=== PATIENT | male | born 1970 | race Caucasian/White ===

== ENCOUNTER 2020-03-15 12:36 | Outpatient (CLI) | payer OTHER, SELFPAY ==
[2020-03-15 14:19] LABS: Basophils % 0.8 %; Eosinophils # 0.1 10^3/uL (0.0-0.8); Eosinophils % 2.8 %; Hematocrit 51.5 % (42.0-52.0); Hemoglobin 17.4 g/dL (11.7-16.6); Lymphocytes # 2.2 10^3/uL (0.8-4.8); Lymphocytes % 44.7 %; Mean Corpuscular HGB Conc 33.8 g/dL (30.0-36.0); Mean Corpuscular Hemoglobin 31.2 pg (28.0-34.0); Mean Corpuscular Volume 92.5 fL (80-94); Monocytes # 0.3 10^3/uL (0.2-0.9); Monocytes % 5.8 %; Neutrophils # 2.29 10^3/uL (1.8-7.7); Neutrophils % 45.7 %; Nucleated Red Blood Cells % 0 %; Platelet Count 178 10^3/cmm (130-400); Red Blood Count 5.57 10^6/uL (4.1-5.3); Red Cell Distribution Width 11.9 % (12.1-15.1)
[2020-03-15 14:43] LABS: Alanine Aminotransferase 67 U/L (0-41); Albumin Level 4.4 g/dL (3.5-5.2); Alkaline Phosphatase 74 IU/L (40-130); Anion Gap 12.1 (5-19); Aspartate Amino Transferase 43 U/L (0-40); Blood Urea Nitrogen 16 mg/dL (6-20); C Reactive Protein 3.2 mg/L (0.0-4.9); Calcium 9.3 mg/dL (8.5-10.5); Carbon Dioxide 27 mmol/L (22-29); Chloride 103 mmol/L (98-107); Ferritin 512 ng/mL (30-400); Globulin 2.8 g/dL (1.3-4.6); Glomerular Filtration Rate 103.6 mL/min (90-130); Glucose 91 mg/dL (65-115); Iron 136 ug/dL (59-158); Osmolality Calculated 287 mOsm/kg (285-295); Percent Saturation 59.1 % (20-50); Potassium 4.1 mmol/L (3.5-5.1); Sodium 138 mmol/L (136-145); Thyroid Stimulating Hormone 1.66 uIU/mL (0.27-4.20); Total Bilirubin 0.8 mg/dL (0.15-1.2); Total Iron Binding Capacity 230 mcg/dl; Total Protein 7.2 g/dL (6.6-8.7); Unsaturated Iron Binding 94 ug/dL (112-347); Vitamin B12 494 pg/mL (232-1245)
[2020-03-16 01:25] LABS: Erythrocyte Sedimentation Rate 0 mm/hr (0-10)
--- NOTE | 2020-03-18 10:59 | ONC FU_ITS ---
Dr. May Patient Follow-Up Note Patient: Issac Blanc Unit #: [id number]: 1970 Dicatated By: Bayron May M.D.Date of Visit:Mar 15, 2020 Onc Med Follow-up/Prog Note Chief Complaint: Elevated serum ferritin/hemochromatosis. History of Present Illness: This is a 48 year-old man with elevated serum ferritin level and presumed hereditary hemochromatosis. I had seen him initially in January of 2010. Prior to that visit, he had been in the emergency room and his ferritin was found to be elevated at 621 ng/mL. Serum iron studies had shown his transferrin saturation normal at 34%. A repeat ferritin was still significantly elevated at 537 ng/mL. His subsequent serum iron studies had shown transferrin saturations more in the low to mid 20 percentile range. 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 That particular pattern, however, has not been reported to be associated with iron overload. He did have mildly elevated liver enzymes. A liver biopsy showed grade 3-4 steatosis, but just mild iron deposition (grade 1/4). A viral hepatitis profile was negative. He had complained of severe fatigue and he also had significant musculoskeletal pain. I had not been able to determine any specific cause for those symptoms. I had initially opted to just follow him on observation/symptomatic management. During subsequent follow-up, he continued to complain of severe fatigue and generalized musculoskeletal pain. His serum ferritin levels had initially remained similarly elevated. However, as of August 2016 it had increased to 1133 ng/mL. His SGPT had become slightly elevated. With those findings, I opted to have him start a phlebotomy program. His repeat laboratory studies on 07/16/2017 showed elevated hemoglobin at 17.6 g with hematocrit 54.9%. His chem profile was unremarkable. The liver enzymes were normal. His further lab studies in 07/22/2017 included serum ferritin, which had dropped to 73 ng/mL. His serum iron was 136 mcg/dL with transferrin saturation 46%. Given the discrepancy in those results compared to his previous studies, he had further laboratory evaluation on 08/12/2017. It included a CBC which showed further increase in the hemoglobin to 18.9 g with hematocrit 57.2%. The white blood cell count was normal at 5000 and the platelet count was normal at 239,000. His serum iron was again elevated at 205 mcg/dL with transferrin saturation 62%. The ferritin was stable at 73 ng/mL. B12 level was normal 393 pg/mL. The erythropoietin level was 8 mIU/mL. The JAK2 gene mutation was not detected. I had seen him for a follow-up visit again in December 2017. At that point there had not been a significant change in his symptoms. He continued to have episodes of severe fatigue, and he complained that he hurt so bad at times that he couldn't stand it. However, he was working full-time and maintaining normal activity. At that point I had stopped the phlebotomies, as his laboratory studies had shown low transferrin saturation at 14.2% and ferritin low at 17 ng/mL. Subsequent to that visit he had established primary care with Dr. Mike Woo in [place]. I don't have records, but he was referred for GI evaluation with EGD and colonoscopy, both of which were apparently negative. He was also recommended to be seen a pain clinic for management of his chronic pain. His repeat laboratory studies in October 2018 continued to show elevated hemoglobin at 18.8 g with hematocrit 54%. The white blood cell count was 4500 and the platelet count was 210,000. The SGPT was slightly elevated at 64. The other liver enzymes were normal. The serum iron studies showed elevated transferrin saturation of 58%. The ferritin was 161 ng/mL. Given those findings, I opted to just continue with symptomatic management. He is seen now for a follow-up visit. He has not been feeling good. He reports decreased energy. He is working, but he says he is worn out by 2 PM. 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 His ECOG score is 1. He has good appetite. He has gained weight. He does not have fever or night sweats. He continues to have pain in his right upper quadrant area. The pain gets worse if he is leaning over to the right side. He says it feels like there is something popping out. The pain also tends to get worse after eating. He does not have nausea. He does have some acid reflux, but it is adequately managed with Tums. Bowel function has been okay. He also complains that he aches and hurts all the time, particularly in his arms. He also has lower back pain that radiates down into his legs. He says when he wakes up in the morning he can hardly move. He has some shortness of breath, and he has chest pain off and on. He does not complain of headache. He occasionally has dizziness. He has no numbness/paresthesia or other focal neurologic symptoms. He complains that he has terrible anxiety he does not sleep well. Medications: Hydrocodone-Acetaminophen 1 (10-325 mg) Tablet Oral q 4 hours PRN Allergies: No Known Allergies. Review of Systems: Constitutional - He generally does not feel good. His energy has decreased over the last few months. 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 His appetite is very good and his weight is up about 8 pounds. No fevers, night sweats, or hot flashes. ECOG score is 1, ENMT - He has seasonal allergies. No mouth sores. No sore throat or difficulty swallowing, Hematologic/Lymphatic - No abnormal bruising or bleeding, Respiratory - No shortness of breath. No cough. No pleuritic pain or hemoptysis, Cardiovascular - He continues to have intermittent chest pain. No palpitations, Gastrointestinal - No nausea or vomiting. No heartburn or acid reflux. No diarrhea or constipation. No blood in the stool or black stools. He continues to have intermittent right abdominal/flank pain. He notices that it worsens with eating or with certain positions, Genitourinary (M) - No dysuria or hematuria. No urinary frequency. No urgency or incontinence, Musculoskeletal - He has generalized aches that have worsened. He also has back pain, mainly sciatica. His pain is adequately controlled with hydrocodone-APAP 10-325 mg, Integumentary - No skin complications, Neurologic - No headache. He get dizzy with quick position changes. He has a tingling sensation in his hands. No other focal neurologic symptoms, Psychiatric - He is having frequent anxiety. No depression. He doesn't sleep well. Vital Signs: Performed on Mar 15, 2020 12:54 Height - 68.00 in Weight - 208.4 lbs (HIGH) BSA - 2.08 sq.m BMI - 31.69 (HIGH) Temperature - 98.4 F Pulse - 73 /min Respiration - 24 /min BP - 136/76 mm(hg) O2 Sat - 98 % Pain - 6 Physical Examination: Constitutional - He looks pretty good generally, Eyes - Sclerae nonicteric. Conjunctivae clear, ENMT - No lesions noted in the oral cavity, Hematologic/Lymphatic - No cervical, clavicular or axillary adenopathy, Respiratory - Lungs are clear with good air movement bilaterally, Cardiovascular - Heart rhythm is regular. There is no murmur, gallop, or rub noted, Abdomen - Soft. Liver is not enlarged or tender. Spleen is not palpable. There is no abdominal mass or ascites noted. There is no inguinal adenopathy, Back/Spine - There is no bony tenderness noted in the spine or ribs, Extremities - No edema, Integumentary - No skin eruption, Neurologic - No focal neurologic deficits noted. Impression: 1. Patient has a moderately elevated serum ferritin. The cause/clinical significance is uncertain. He had extensive evaluation, including liver biopsy, and there was no other evidence to suggest iron overload. His HFE gene analysis showed double heterozygosity for the S65C and the H63D mutations, but that pattern has not been reported to be associated with hemochromatosis. 2. He had complained of severe chronic fatigue and generalized musculoskeletal pain. I was never able to determine his specific cause for it. 3. During follow-up, his ferritin levels had previously remained stable. His current level, though, has increased significantly, now in excess of 1100 ng/mL, but with normal sedimentation rate at 4 mm/hour. I had initially opted to follow him on observation. Though his HFE gene analysis was abnormal, his specific pattern was not one that reported to be associated with iron overload. Furthermore, his liver biopsy showed only 1+ iron deposition. As of August 2016 his ferritin level had increased to over 1000 ng/mL with his sedimentation rate remaining low. At that point I did opt to have him start phlebotomies, as the findings did appear to be suspicious for iron overload. His follow-up laboratory studies in July 2016 showed a significant decrease in the ferritin level to 73 ng/mL. However, at that point his serum iron studies showed elevated transferrin saturation, which previously had been normal. His hemoglobin/hematocrit levels had become mildly elevated. His repeat laboratory studies on 08/12/2017 showed similar findings with regard to the ferritin and transferrin saturation. There was further increase in the hemoglobin/hematocrit levels. Additional studies at that time included an erythropoietin level of 8 mIU/mL and a negative JAK2 gene mutation study. At that point he restarted phlebotomies, but those were subsequently stopped, as his laboratory studies from December 2017 showed low transferrin saturation at 14.2% and ferritin low at 17 ng/mL. During followup he continued to have unexplained fatigue and chronic pain. He developed mildly elevated hemoglobin/hematocrit levels. His serum iron studies and ferritin levels had shown inconsistent results, but with phlebotomies both had become low, and overall there was no observable improvement in his symptoms. He presents with multiple complaints, similar to what he is previously reported, though now somewhat worse. It is uncertain to what extent any of this may be due to iron overload. Plan: I will recheck laboratory studies including CBC, comprehensive metabolic profile, sed rate, serum iron studies, ferritin, TSH, and B12 level. If there has been a significant increase in the transferrin saturation and ferritin, he can be offered the option of restarting phlebotomies, though I am not particularly optimistic of his having any clinical benefit with it. In the meantime, I will have him start citalopram at 20 mg daily. I will tentatively plan a follow-up visit in 1 month. Signed By: Bayron May M.D. <<Signature on File>>
== END 2020-03-15 12:37 | disposition home or self-care (01) ==
PROVIDERS: Visit Provider Internal Medicine Medical Oncology
DX: E83.110 Hereditary hemochromatosis (principal); R79.0 Abnormal level of blood mineral; M25.50 Pain in unspecified joint; R53.83 Other fatigue
CPT/HCPCS: 80053; 82607; 82728; 83540; 83550; 84443; 85025; 85651; 86140; 99214

== ENCOUNTER 2020-04-19 08:58 | Outpatient (CLI) | payer OTHER, SELFPAY ==
--- NOTE | 2020-04-19 10:25 | ONC FU_ITS ---
Dr. May Patient Follow-Up Note Patient: Henry Blanc Unit #: [id number]: 1970 Dicatated By: Bayron May M.D.Date of Visit:Apr 19, 2020 Onc Med Follow-up/Prog Note Chief Complaint: Elevated serum ferritin/hemochromatosis. History of Present Illness: This is a 48 year-old man with elevated serum ferritin level and presumed hereditary hemochromatosis. I had seen him initially in January of 2010. Prior to that visit, he had been in the emergency room and his ferritin was found to be elevated at 621 ng/mL. Serum iron studies had shown his transferrin saturation normal at 34%. A repeat ferritin was still significantly elevated at 537 ng/mL. His subsequent serum iron studies had shown transferrin saturations more in the low to mid 20 percentile range. 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 That particular pattern, however, has not been reported to be associated with iron overload. He did have mildly elevated liver enzymes. A liver biopsy showed grade 3-4 steatosis, but just mild iron deposition (grade 1/4). A viral hepatitis profile was negative. He had complained of severe fatigue and he also had significant musculoskeletal pain. I had not been able to determine any specific cause for those symptoms. I had initially opted to just follow him on observation/symptomatic management. During subsequent follow-up, he continued to complain of severe fatigue and generalized musculoskeletal pain. His serum ferritin levels had initially remained similarly elevated. However, as of August 2016 it had increased to 1133 ng/mL. His SGPT had become slightly elevated. With those findings, I opted to have him start a phlebotomy program. His repeat laboratory studies on 07/16/2017 showed elevated hemoglobin at 17.6 g with hematocrit 54.9%. His chem profile was unremarkable. The liver enzymes were normal. His further lab studies in 07/22/2017 included serum ferritin, which had dropped to 73 ng/mL. His serum iron was 136 mcg/dL with transferrin saturation 46%. Given the discrepancy in those results compared to his previous studies, he had further laboratory evaluation on 08/12/2017. It included a CBC which showed further increase in the hemoglobin to 18.9 g with hematocrit 57.2%. The white blood cell count was normal at 5000 and the platelet count was normal at 239,000. His serum iron was again elevated at 205 mcg/dL with transferrin saturation 62%. The ferritin was stable at 73 ng/mL. B12 level was normal 393 pg/mL. The erythropoietin level was 8 mIU/mL. The JAK2 gene mutation was not detected. I had seen him for a follow-up visit again in December 2017. At that point there had not been a significant change in his symptoms. He continued to have episodes of severe fatigue, and he complained that he hurt so bad at times that he couldn't stand it. However, he was working full-time and maintaining normal activity. At that point I had stopped the phlebotomies, as his laboratory studies had shown low transferrin saturation at 14.2% and ferritin low at 17 ng/mL. Subsequent to that visit he had established primary care with Dr. Mike Woo in [place]. I don't have records, but he was referred for GI evaluation with EGD and colonoscopy, both of which were apparently negative. He was also recommended to be seen a pain clinic for management of his chronic pain. His repeat laboratory studies in October 2018 continued to show elevated hemoglobin at 18.8 g with hematocrit 54%. The white blood cell count was 4500 and the platelet count was 210,000. The SGPT was slightly elevated at 64. The other liver enzymes were normal. The serum iron studies showed elevated transferrin saturation of 58%. The ferritin was 161 ng/mL. Given those findings, I opted to just continue with symptomatic management. I had seen him for a follow-up visit on 03/15/2020. He was having significant fatigue and he also complained of having episodes of pain in his right upper quadrant area. The pain was worse after eating, but it also had a positional component. His laboratory studies included CBC showing mildly elevated hemoglobin/hematocrit levels at 17.4 g and 51.5%. The red cell indices were normal. White blood cell count was normal at 5000 and platelet count was normal at 178,000. His sed rate was 0 and C-reactive protein was normal at 3.2 mg/L. Comprehensive metabolic profile showed normal renal function with BUN 16 and creatinine 0.8 mg/dL. Liver enzymes were slightly elevated with SGOT 43/40 and SGPT 67/41 U/L. Bilirubin and alkaline phosphatase were normal. The serum iron studies showed elevated transferrin saturation at 59.1% with ferritin mildly elevated at 512 ng/mL. B12 level was normal at 494 pg/mL and TSH was normal at 1.66 ???IU/mL He continues to complain of pain in his right upper quadrant which gets worse after eating and which also gets worse when he leans over, particularly to the right side. At times he has severe pain which radiates through to the back, and with those episodes he also has shortness of breath. He can get relief by leaning back. He also complains of having pain in his low back which radiates down the back of the left leg to the foot. The pain sometimes radiates to the right leg as well. Medications: Hydrocodone-Acetaminophen 1 (10-325 mg) Tablet Oral q 4 hours PRN Allergies: No Known Allergies. Review of Systems: Constitutional - He has significant fatigue, but he still still working. Appetite has been okay. He has no fever or night sweats. ECOG score is 1, ENMT - No sinus congestion/drainage. No mouth sores. No sore throat or difficulty swallowing, Hematologic/Lymphatic - No abnormal bruising or bleeding, Respiratory - He has shortness of breath with more severe pain episodes. No cough. No pleuritic pain or hemoptysis, Cardiovascular - No angina pain. No palpitations, Gastrointestinal - He continues to have pain in the right upper quadrant area. He gets worse after eating. It also gets worse if he is leaning over, particularly to the right side. At times the pain is severe and it radiates through to the back. He does not have nausea/vomiting. No diarrhea or constipation. No blood in the stool or black stools, Genitourinary (M) - No dysuria or hematuria. No urinary frequency. No urgency or incontinence, Musculoskeletal - He has been having pain in the low back which radiates down the back of his left leg to the foot. He sometimes has pain radiating to the right leg, Integumentary - No skin rash, Neurologic - No headache. He sometimes has tingling. No other focal neurologic symptoms, Psychiatric - He has anxiety/depression. He did seem to get some benefit with citalopram, but he stopped taking it because it made him too sleepy. Vital Signs: Performed on Apr 19, 2020 09:07 Height - 68.00 in Weight - 207.4 lbs (LOW) BSA - 2.08 sq.m BMI - 31.54 (HIGH) Temperature - 98.0 F (LOW) Pulse - 71 /min Respiration - 18 /min BP - 120/72 mm(hg) O2 Sat - 98 % Pain - 6 Physical Examination: Constitutional - He does not appear acutely ill, Eyes - Sclerae nonicteric. Conjunctivae clear, ENMT - No lesions noted in the oral cavity, Neck - No mass or thyromegaly, Hematologic/Lymphatic - No cervical, clavicular, or axillary adenopathy, Respiratory - Lungs are clear with good air movement bilaterally, Cardiovascular - Heart rhythm is regular. There is no murmur, gallop, or rub noted, Abdomen - Soft. There is no significant abdominal tenderness. Liver and spleen are not enlarged. There is no abdominal mass or ascites noted and there is no inguinal adenopathy, Back/Spine - No spine or CVA tenderness noted, Extremities - No edema, Neurologic - No focal neurologic deficits noted. DTRs are 2+ and symmetric. Impression: 1. Patient has a moderately elevated serum ferritin. The cause/clinical significance is uncertain. He had extensive evaluation, including liver biopsy, and there was no other evidence to suggest iron overload. His HFE gene analysis showed double heterozygosity for the S65C and the H63D mutations, but that pattern has not been reported to be associated with hemochromatosis. 2. He had complained of severe chronic fatigue and generalized musculoskeletal pain. I was never able to determine his specific cause for it. 3. During follow-up, his ferritin levels had previously remained stable. His current level, though, has increased significantly, now in excess of 1100 ng/mL, but with normal sedimentation rate at 4 mm/hour. I had initially opted to follow him on observation. Though his HFE gene analysis was abnormal, his specific pattern was not one that reported to be associated with iron overload. Furthermore, his liver biopsy showed only 1+ iron deposition. As of August 2016 his ferritin level had increased to over 1000 ng/mL with his sedimentation rate remaining low. At that point I did opt to have him start phlebotomies, as the findings did appear to be suspicious for iron overload. His follow-up laboratory studies in July 2016 showed a significant decrease in the ferritin level to 73 ng/mL. However, at that point his serum iron studies showed elevated transferrin saturation, which previously had been normal. His hemoglobin/hematocrit levels had become mildly elevated. His repeat laboratory studies on 08/12/2017 showed similar findings with regard to the ferritin and transferrin saturation. There was further increase in the hemoglobin/hematocrit levels. Additional studies at that time included an erythropoietin level of 8 mIU/mL and a negative JAK2 gene mutation study. At that point he restarted phlebotomies, but those were subsequently stopped, as his laboratory studies from December 2017 showed low transferrin saturation at 14.2% and ferritin low at 17 ng/mL. During followup he continued to have unexplained fatigue and chronic pain. He developed mildly elevated hemoglobin/hematocrit levels. His serum iron studies and ferritin levels had shown inconsistent results, but with phlebotomies both had become low, and overall there was no observable improvement in his symptoms. Since then his transferrin saturation and ferritin have become mildly elevated again. He has continued to complain of fatigue. His most significant complaint now is that he has been having episodes of pain in his right upper quadrant area. That pain does get worse after eating, but it also has a significant positional component. He also has been having low back pain which tends to radiate down the back of his left leg. Plan: With his blood count being high and with his transferrin saturation and ferritin also both elevated, he will be phlebotomized today. He will be scheduled for contrast-enhanced CT of the abdomen/pelvis, and he will have further evaluation as indicated. Signed By: Bayron May M.D. <<Signature on File>>
== END 2020-04-19 08:59 | disposition home or self-care (01) ==
LOC: ONCMED 08:59
PROVIDERS: Visit Provider Internal Medicine Medical Oncology
DX: E83.110 Hereditary hemochromatosis (principal); R79.0 Abnormal level of blood mineral; R53.83 Other fatigue
CPT/HCPCS: 99195; 99214

== ENCOUNTER 2020-05-29 08:18 | Outpatient (CLI) | payer OTHER, SELFPAY ==
--- NOTE | 2020-05-29 08:30 | US_ITS ---
WS: [id number] ULTRASOUND ABDOMEN LIMITED CLINICAL INFORMATION: RUQ ABDOMINAL PAIN/ATTN: TO LIVER/GALLBLADDER COMPARISON: None. FINDINGS: Liver Size: Mild hepatomegaly Craniocaudal length: 16.7 cm. Echogenicity: Dense and heterogeneous Surface nodularity: None. Mass (size and location): Hypoechoic lesion measuring 10 mm too small to definitively characterize Bile ducts Intrahepatic ducts: Normal. Common bile duct diameter: 0.5 cm. Gallbladder Normal. Gallstones: None. Gallbladder sludge: None. Gallbladder wall thickening: None. Pericholecystic fluid: None. Sonographic Connelly sign: Absent. Pancreas Not well visualized Right kidney: Normal. Hydronephrosis: None. Size: 11.7 cm x 4.7 cm x 4.9 cm. Abdominal aorta and IVC Visualized portions are normal. Ascites: None. US/US gall bladder [id number] IMPRESSION: 1. Dense heterogeneous liver likely due to fatty infiltration. 2. Small hypoechoic liver lesion measuring 1.1 x 1.1 x 1.0 cm. This is too sma ll to definitively characterize but may represent a small cyst. This can be fol lowed up with ultrasound in 6 months or further evaluated with contrast-enhance d CT abdomen pelvis liver protocol. No other visualized hepatic lesions. 3. Normal gallbladder. No hydronephrosis in right kidney.
== END 2020-05-29 08:19 | disposition home or self-care (01) ==
PROVIDERS: Visit Provider Internal Medicine Medical Oncology
DX: R10.11 Right upper quadrant pain (principal); K76.0 Fatty (change of) liver, not elsewhere classified; K76.9 Liver disease, unspecified
CPT/HCPCS: 76705

== ENCOUNTER 2020-06-28 07:33 | Outpatient (CLI) | payer OTHER, SELFPAY ==
--- NOTE | 2020-06-28 07:43 | NM_ITS ---
WS: [id number] NUCLEAR MEDICINE HIDA SCAN CLINICAL INFORMATION: RIGHT UPPER QUADRANT PAIN TECHNIQUE: Following intravenous administration of mCi of technetium 99m mebrofenin, images of the ab domen were obtained over the course of 60 minutes. Next, gallbladder ejection fraction was determined by obtaining preprandial and one-hour postprandial images of the gallbladder following oral ingestio n of Ensure. COMPARISON: 01/2015 and ultrasound on May 29, 2020 FINDINGS: Normal hepatic uptake at 5 minutes. Gallbladder is visualized by 10 minutes. Normal common bile duct. Normal small bowel activity. No evidence of acute cholecystitis or choledocholithiasis. Gallbladder ejection fraction 95% within normal limits. No evidence of chronic cholecystitis. NM/NM hepatobiliary w phar* [id number] IMPRESSION: 1. No evidence of acute or chronic cholecystitis. 2. Gallbladder ejection fraction 95% within normal limits.
== END 2020-06-28 07:34 | disposition home or self-care (01) ==
LOC: NM 07:37
PROVIDERS: Visit Provider Surgery
DX: R10.11 Right upper quadrant pain (principal)
CPT/HCPCS: 78227; A9537

== ENCOUNTER → 2020-08-17 08:42 | Outpatient (BNVA) | payer OTHER, SELFPAY | PROVIDERS: PCP Internal Medicine Medical Oncology; Visit Provider Orthopaedic Surgery | DX: M54.5 Low back pain (principal) | CPT/HCPCS: 72110 ==

== ENCOUNTER 2020-11-01 09:04 | Outpatient (CLI) | payer OTHER, SELFPAY ==
[2020-11-01 09:50] LABS: Basophils % 0.9 %; Eosinophils # 0.2 10^3/uL (0.0-0.8); Eosinophils % 3.6 %; Hematocrit 50.5 % (42.0-52.0); Hemoglobin 17.2 g/dL (11.7-16.6); Lymphocytes # 1.6 10^3/uL (0.8-4.8); Lymphocytes % 36.5 %; Mean Corpuscular HGB Conc 34.1 g/dL (30.0-36.0); Mean Corpuscular Hemoglobin 31.6 pg (28.0-34.0); Mean Corpuscular Volume 92.8 fL (80-94); Mean Platelet Volume 10.7 fL (7.4-10.4); Monocytes # 0.3 10^3/uL (0.2-0.9); Monocytes % 6.1 %; Neutrophils # 2.34 10^3/uL (1.8-7.7); Neutrophils % 52.7 %; Nucleated Red Blood Cells % 0 %; Platelet Count 157 10^3/cmm (130-400); Red Blood Count 5.44 10^6/uL (4.1-5.3); Red Cell Distribution Width 12.2 % (12.1-15.1); White Blood Count 4.4 10^3/uL (4.0-10.0)
[2020-11-01 10:35] LABS: Erythrocyte Sedimentation Rate 6 mm/hr (0-10)
[2020-11-01 10:40] LABS: Alanine Aminotransferase 72 U/L (0-41); Albumin Level 4.1 g/dL (3.5-5.2); Alkaline Phosphatase 106 IU/L (40-130); Anion Gap 11.2 (5-19); Aspartate Amino Transferase 51 U/L (0-40); Blood Urea Nitrogen 16 mg/dL (6-20); Calcium 8.7 mg/dL (8.5-10.5); Carbon Dioxide 30 mmol/L (22-29); Chloride 104 mmol/L (98-107); Ferritin 603 ng/mL (30-400); Globulin 2.9 g/dL (1.3-4.6); Glomerular Filtration Rate 90.4 mL/min (90-130); Glucose 112 mg/dL (65-115); Iron 68 ug/dL (59-158); Osmolality Calculated 294 mOsm/kg (285-295); Percent Saturation 28.8 % (20-50); Potassium 4.2 mmol/L (3.5-5.1); Sodium 141 mmol/L (136-145); Thyroid Stimulating Hormone 0.76 uIU/mL (0.27-4.20); Total Bilirubin 0.4 mg/dL (0.15-1.2); Total Iron Binding Capacity 236 mcg/dl; Unsaturated Iron Binding 168 ug/dL (112-347)
== END 2020-11-01 09:05 | disposition home or self-care (01) ==
LOC: ONCMED 09:07
PROVIDERS: Visit Provider Internal Medicine Medical Oncology
DX: E83.110 Hereditary hemochromatosis (principal); R79.0 Abnormal level of blood mineral; Z79.899 Other long term (current) drug therapy
CPT/HCPCS: 80053; 82728; 83540; 83550; 84443; 85025; 85651; 99195

== ENCOUNTER 2020-12-06 07:46 | Outpatient (CLI) | payer OTHER, SELFPAY ==
[2020-12-06 08:47] LABS: Basophils % 0.8 %; Eosinophils # 0.2 10^3/uL (0.0-0.8); Eosinophils % 3.4 %; Hematocrit 50.7 % (42.0-52.0); Lymphocytes # 1.8 10^3/uL (0.8-4.8); Lymphocytes % 37.4 %; Mean Corpuscular HGB Conc 33.5 g/dL (30.0-36.0); Mean Corpuscular Hemoglobin 32.1 pg (28.0-34.0); Mean Corpuscular Volume 95.7 fL (80-94); Mean Platelet Volume 11.1 fL (7.4-10.4); Monocytes # 0.3 10^3/uL (0.2-0.9); Monocytes % 6.7 %; Neutrophils # 2.45 10^3/uL (1.8-7.7); Neutrophils % 51.5 %; Nucleated Red Blood Cells % 0 %; Platelet Count 172 10^3/cmm (130-400); Red Cell Distribution Width 12.3 % (12.1-15.1); White Blood Count 4.8 10^3/uL (4.0-10.0)
[2020-12-06 09:03] LABS: Alanine Aminotransferase 84 U/L (0-41); Albumin Level 3.9 g/dL (3.5-5.2); Alkaline Phosphatase 98 IU/L (40-130); Anion Gap 10.2 (5-19); Aspartate Amino Transferase 53 U/L (0-40); Blood Urea Nitrogen 11 mg/dL (6-20); Calcium 8.4 mg/dL (8.5-10.5); Carbon Dioxide 31 mmol/L (22-29); Chloride 103 mmol/L (98-107); Ferritin 359 ng/mL (30-400); Globulin 2.8 g/dL (1.3-4.6); Glomerular Filtration Rate 120.4 mL/min (90-130); Glucose 106 mg/dL (65-115); Iron 89 ug/dL (59-158); Osmolality Calculated 290 mOsm/kg (285-295); Percent Saturation 38.3 % (20-50); Potassium 4.2 mmol/L (3.5-5.1); Sodium 140 mmol/L (136-145); Thyroid Stimulating Hormone 2.18 uIU/mL (0.27-4.20); Total Bilirubin 0.5 mg/dL (0.15-1.2); Total Iron Binding Capacity 232 mcg/dl; Total Protein 6.7 g/dL (6.6-8.7); Unsaturated Iron Binding 143 ug/dL (112-347)
[2020-12-06 10:25] LABS: Erythrocyte Sedimentation Rate 5 mm/hr (0-10)
--- NOTE | 2020-12-06 16:49 | ONC FU_ITS ---
Dr. May Patient Follow-Up Note Patient: Henry Blanc Unit #: [id number]: 1970 Dicatated By: Bayron May M.D.Date of Visit:Dec 06, 2020 Onc Med Follow-up/Prog Note Chief Complaint: Elevated serum ferritin/hemochromatosis. History of Present Illness: This is a 50 year-old man with elevated serum ferritin level and presumed hereditary hemochromatosis. I had seen him initially in January of 2010. Prior to that visit, he had been in the emergency room and his ferritin was found to be elevated at 621 ng/mL. Serum iron studies had shown his transferrin saturation normal at 34%. A repeat ferritin was still significantly elevated at 537 ng/mL. His subsequent serum iron studies had shown transferrin saturations more in the low to mid 20 percentile range. 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 That particular pattern, however, has not been reported to be associated with iron overload. He did have mildly elevated liver enzymes. A liver biopsy showed grade 3-4 steatosis, but just mild iron deposition (grade 1/4). A viral hepatitis profile was negative. He had complained of severe fatigue and he also had significant musculoskeletal pain. I had not been able to determine any specific cause for those symptoms. I had initially opted to just follow him on observation/symptomatic management. During subsequent follow-up, he continued to complain of severe fatigue and generalized musculoskeletal pain. His serum ferritin levels had initially remained similarly elevated. However, as of August 2016 it had increased to 1133 ng/mL. His SGPT had become slightly elevated. With those findings, I opted to have him start a phlebotomy program. His repeat laboratory studies on 07/16/2017 showed elevated hemoglobin at 17.6 g with hematocrit 54.9%. His chem profile was unremarkable. The liver enzymes were normal. His further lab studies in 07/22/2017 included serum ferritin, which had dropped to 73 ng/mL. His serum iron was 136 mcg/dL with transferrin saturation 46%. Given the discrepancy in those results compared to his previous studies, he had further laboratory evaluation on 08/12/2017. It included a CBC which showed further increase in the hemoglobin to 18.9 g with hematocrit 57.2%. The white blood cell count was normal at 5000 and the platelet count was normal at 239,000. His serum iron was again elevated at 205 mcg/dL with transferrin saturation 62%. The ferritin was stable at 73 ng/mL. B12 level was normal 393 pg/mL. The erythropoietin level was 8 mIU/mL. The JAK2 gene mutation was not detected. I had seen him for a follow-up visit again in December 2017. At that point there had not been a significant change in his symptoms. He continued to have episodes of severe fatigue, and he complained that he hurt so bad at times that he couldn't stand it. However, he was working full-time and maintaining normal activity. At that point I had stopped the phlebotomies, as his laboratory studies had shown low transferrin saturation at 14.2% and ferritin low at 17 ng/mL. Subsequent to that visit he had established primary care with Dr. Mike Woo in [place]. I don't have records, but he was referred for GI evaluation with EGD and colonoscopy, both of which were apparently negative. He was also recommended to be seen a pain clinic for management of his chronic pain. His repeat laboratory studies in October 2018 continued to show elevated hemoglobin at 18.8 g with hematocrit 54%. The white blood cell count was 4500 and the platelet count was 210,000. The SGPT was slightly elevated at 64. The other liver enzymes were normal. The serum iron studies showed elevated transferrin saturation of 58%. The ferritin was 161 ng/mL. Given those findings, I opted to just continue with symptomatic management. I had seen him for a follow-up visit on 03/15/2020. He was having significant fatigue and he also complained of having episodes of pain in his right upper quadrant area. The pain was worse after eating, but it also had a positional component. His laboratory studies included CBC showing mildly elevated hemoglobin/hematocrit levels at 17.4 g and 51.5%. The red cell indices were normal. White blood cell count was normal at 5000 and platelet count was normal at 178,000. His sed rate was 0 and C-reactive protein was normal at 3.2 mg/L. Comprehensive metabolic profile showed normal renal function with BUN 16 and creatinine 0.8 mg/dL. Liver enzymes were slightly elevated with SGOT 43/40 and SGPT 67/41 U/L. Bilirubin and alkaline phosphatase were normal. The serum iron studies showed elevated transferrin saturation at 59.1% with ferritin mildly elevated at 512 ng/mL. B12 level was normal at 494 pg/mL and TSH was normal at 1.66 ???IU/mL With his transferrin saturation and ferritin both elevated, I did opt to phlebotomize him. Subsequent to that visit, he had seen Dr. Vincent in regard to his right upper quadrant abdominal pain. Gallbladder ultrasound showed mild hepatomegaly. It was otherwise unrevealing. A nuclear medicine hepatobiliary scan showed no evidence of acute or chronic cholecystitis. The gallbladder ejection fraction was within normal limits at 95%. He was given a prescription for pantoprazole 40 mg daily. He is seen now for a follow-up visit. He says the stomach medicine has been working really well. His main complaint is that he is just tired all the time. He cannot do as much work, and it is just getting harder for him all the time. He does work all week, but by the weekend he is wore out. His ECOG score is 1. He has good appetite and he has been gaining weight. He does not have fever or night sweats. He has a lot of sinus drainage and cough, attributable to allergies. He has shortness of breath, but no wheezing. He does not complain of chest pain. He currently has no GI or complaints. He has chronic pain, and he says he hurts all the time. He has generalized musculoskeletal pain and back pain. It is tolerable with the hydrocodone/APAP. In the past she has had trials of medications for fibromyalgia which had not been effective. He has sinus headaches. He does not complain of dizziness. He has no numbness/paresthesia or other focal neurologic symptoms. He has chronic anxiety/depression which is the same. He does not sleep well. He complains that he tosses and turns all night long. Medications: Hydrocodone-Acetaminophen 1 (10-325 mg) Tablet Oral q 4 hours PRN Allergies: No Known Allergies. Vital Signs: Performed on Dec 06, 2020 09:42 Height - 68.00 in Weight - 216 lbs (HIGH) BSA - 2.11 sq.m BMI - 32.84 (HIGH) Temperature - 97.2 F (LOW) Pulse - 52 /min (LOW) Respiration - 18 /min BP - 130/84 mm(hg) O2 Sat - 97 % Pain - 0 Fatigue - 0 Physical Examination: Constitutional - He looks pretty good generally, Eyes - Sclerae nonicteric. Conjunctivae clear, ENMT - No lesions noted in the oral cavity, Hematologic/Lymphatic - No cervical, clavicular, or axillary adenopathy, Respiratory - Lungs are clear with good air movement bilaterally, Cardiovascular - Heart rhythm is regular. There is no murmur, gallop, or rub noted, Abdomen - Mildly distended but soft. Liver and spleen are not enlarged. There is no abdominal mass or ascites noted and there is no inguinal adenopathy, Extremities - No edema, Neurologic - No focal neurologic deficits noted. Lab/Imaging: CBC shows hemoglobin 17.0 g, white blood cell count 4800, and platelet count 172,000. Comprehensive metabolic profile shows normal renal function with BUN 11 and creatinine 0.7 mg/dL. The SGOT and SGPT T levels remain slightly elevated with normal bilirubin and normal alkaline phosphatase. The serum iron studies show transferrin saturation 38%. The ferritin level is mildly elevated at 359 ng/mL. TSH is normal 2.18 ???IU/mL Problem List: 1. Patient has a moderately elevated serum ferritin. The cause/clinical significance is uncertain. His HFE gene analysis showed double heterozygosity for the S65C and the H63D mutations, but that pattern was not reported to be associated with hemochromatosis. His subsequent evaluation, which included liver biopsy, showed no other findings to suggest iron overload. 2. He has complained of severe chronic fatigue and generalized musculoskeletal pain. I have never able to determine a specific cause for it. 3. He also has complaint of chronic/persistent abdominal pain in the right upper quadrant area. A specific cause has not been determined. Problems Addressed with this Encounter and Plan: 1. Patient with moderately elevated serum ferritin. The cause/clinical significance is uncertain. His HFE gene analysis showed double heterozygosity for the S65C and the H63D mutations, but that pattern has not been reported to be associated with hemochromatosis. His subsequent evaluation, which included liver biopsy, showed no other findings to suggest iron overload. I had initially opted to follow him on observation. Although his HFE gene analysis was abnormal, his specific phenotype was not one that was reported to be associated with iron overload. Furthermore, his liver biopsy showed only 1+ iron deposition. As of August 2016 his ferritin level had increased to over 1000 ng/mL with his sedimentation rate remaining low. I did opt to have him start phlebotomies, as the findings at that point appeared to be suspicious for iron overload. During subsequent follow-up his iron studies have been somewhat variable, but his most common pattern has been a mild to moderately elevated serum ferritin with normal transferrin saturation. His current values are consistent with that pattern. As such, I will continue to follow him expectantly. I will see him again in 6 months. 2. He has complained of severe chronic fatigue and generalized musculoskeletal pain. A specific cause has not been determined. He does get some symptomatic benefit with hydrocodone/APAP. As other medications have not been effective, He will continue the hydrocodone/APAP at the same dosage. 3. He has had chronic abdominal pain in the right upper quadrant. A specific cause has not been determined. Recently he has had symptomatic improvement with pantoprazole. Signed By: Bayron May M.D. <<Signature on File>>
== END 2020-12-06 07:47 | disposition home or self-care (01) ==
LOC: ONCMED 07:49
PROVIDERS: Visit Provider Internal Medicine Medical Oncology
DX: Z09 Encounter for follow-up examination after completed treatment for conditions other than malignant neoplasm (principal); R79.89 Other specified abnormal findings of blood chemistry; R10.11 Right upper quadrant pain; R53.82 Chronic fatigue, unspecified; Z79.899 Other long term (current) drug therapy
CPT/HCPCS: 36415; 80053; 82728; 83540; 83550; 84443; 85025; 85651; 99214

== ENCOUNTER 2021-03-26 13:55 | Outpatient (CLI) | payer OTHER, SELFPAY ==
[2021-03-26 15:22] LABS: Basophils % 0.7 %; Eosinophils # 0.1 10^3/uL (0.0-0.8); Eosinophils % 2.3 %; Hemoglobin 17.4 g/dL (11.7-16.6); Lymphocytes # 1.8 10^3/uL (0.8-4.8); Lymphocytes % 32.7 %; Mean Corpuscular HGB Conc 34.1 g/dL (30.0-36.0); Mean Corpuscular Hemoglobin 31.5 pg (28.0-34.0); Mean Corpuscular Volume 92.4 fl (80-94); Mean Platelet Volume 10.9 fL (7.4-10.4); Monocytes # 0.3 10^3/uL (0.2-0.9); Monocytes % 4.4 %; Neutrophils # 3.36 10^3/uL (1.8-7.7); Neutrophils % 59.7 %; Nucleated Red Blood Cells % 0 %; Platelet Count 182 10^3/cmm (130-400); Red Blood Count 5.52 10^6/uL (4.1-5.3); Red Cell Distribution Width 12.8 % (12.1-15.1); White Blood Count 5.6 10^3/uL (4.0-10.0)
[2021-03-26 16:08] LABS: Ferritin 284 ng/mL (30-400); Iron 92 ug/dL (59-158); Percent Saturation 36.9 % (20-50); Total Iron Binding Capacity 249 mcg/dl; Unsaturated Iron Binding 157 ug/dL (112-347)
== END 2021-03-26 13:56 | disposition home or self-care (01) ==
LOC: ONCMED 13:58
PROVIDERS: Visit Provider Internal Medicine Medical Oncology
DX: E83.110 Hereditary hemochromatosis (principal); R79.0 Abnormal level of blood mineral
CPT/HCPCS: 36415; 82728; 83540; 83550; 85025

== ENCOUNTER → 2021-04-18 15:31 | Outpatient (BNVA) | payer OTHER, SELFPAY | PROVIDERS: Visit Provider Physician Assistant | DX: M54.9 Dorsalgia, unspecified (principal); M47.896 Other spondylosis, lumbar region | CPT/HCPCS: 72110 ==

== ENCOUNTER → 2021-04-26 09:18 | Outpatient (BNVA) | payer OTHER, SELFPAY | PROVIDERS: Visit Provider Surgery | DX: R10.11 Right upper quadrant pain (principal) | CPT/HCPCS: 87635 ==

== ENCOUNTER 2021-05-01 05:57 | Day surgery (SDC) | payer OTHER, SELFPAY ==
[2021-04-30 15:33] VITALS: BMI 30.4
[2021-05-01] VITALS (12 sets, daily range): BP systolic 139–168; BP diastolic 51–103; PULSE 70–99; RESP 12–19; TEMP 36.4–36.8; O2SAT 92–98
--- NOTE | 2021-05-01 06:47 | W.PM.OPSUD ---
Surgery/Procedure H&P Update DATE OF PROCEDURE: May 01, 2021 DATE H&P PERFORMED: 04/19/21 H&P UPDATE INFORMATION: I have reviewed H&P completed within last 30 days, I have examined patient prior to procedure and No changes to prior documentation PREOP DIAGNOSIS: Chronic cholecystitis PLANNED PROCEDURE: Operation Date: 05/01/21 07:45 Proposed Procedures p Laparoscopic poss Open Cholecystectomy 44067 R10.11(Not Applicable) - Ten Vincent MD
[2021-05-01] MEDS: sodium chloride 0.9% 1,000 ML 30 ML IV (06:55)
--- NOTE | 2021-05-01 07:17 | ANES.PREANE2 ---
Pre-Anesthetic Assessment Pre-Anesthetic Assessment: Height/Weight: Height 1.73 m Weight 90.718 kg Temp Pulse Resp BP Pulse Ox 98.2 F 75 18 149/93 98 05/01/21 06:37 05/01/21 06:37 05/01/21 06:37 05/01/21 06:37 05/01/21 06:37 Preop Diagnosis: Chronic cholecystitis Proposed Procedure: Operation Date: 05/01/21 07:45 Proposed Procedures p Laparoscopic poss Open Cholecystectomy 09407 R10.11(Not Applicable) - Ten Vincent MD Was Beta Kiki taken within 24 hours: N/A Was Clonidine taken within 24 hours: N/A Last intake: Intake Last Liquid Date 04/30/21 Last Liquid Time 18:30 Last Solid Date 04/30/21 Last Solid Time 18:30 Social: Social History: No alcohol and No tobacco Exam: Pre-Anes Outpt Exam: alert, oriented x 3, clear to auscultation bilaterally and regular rate & rhythm Airway: Submandibular: WNL Cervical ROM: WNL MP: 2 Dentition: Full GI: GI: GERD Metabolic: Metabolic: Morbid obesity Musc/skel: Musc/skel: Fibromyalgia, Lower Back Pain and OA/DJD Comments: Fibromyalgia Anesthetic Plan: ASA status: 2 Anesthesia: General Risk of > 500 ml blood loss (7ml/kg in children): No PFSH Anesthesia PFSH: Medical History Hemochromatosis Surgical History H/O esophagogastroduodenoscopy Status post colonoscopy Family History Other Cancer Denies family history of Anesthesia complication Bleeding disorder Social History Alcohol intake: current Alcohol intake frequency: holidays/special occasions only Data Anesthesia Cardiac Studies: No Data to Display
--- NOTE | 2021-05-01 08:55 | P.OP_ITS ---
Operative Report Date of procedure: May 01, 2021 Pre-op Diagnosis: Chronic cholecystitis Post-op Diagnosis: 1. Chronic cholecystitis with chronic inflammation around the cystic duct 2. Nodular liver, history of cirrhosis Procedure Done: 1. Laparoscopic cholecystectomy 2. Laparoscopic liver wedge biopsy Specimens removed/disposition: 1. Gallbladder 2. Liver wedge biopsy Surgeon: Ten Vincent Anesthesia: General Condition: stable Disposition: PACU Procedure: The patient was taken to the operating room and was intubated under general anesthesia. After the antibiotic had been administered, the abdomen was prepped and draped in a sterile manner. Using a #15 blade, a 1 centimeter infraumbilical curvilinear incision was made and using an open Daniel technique the peritoneal cavity was entered. A 10 millimeter port was placed and 15 millimeters of pneumoperitoneum was created. A 10 millimeter, 30 degrees scope was then introduced. Three 5 millimeter ports were placed in the epigastric, midclavicular and the anterior axillary line two fingerbreadths below the costal margin on the right side under the direct visualization. The patient's liver had a nodular appearance. Ratcheted forceps were introduced into the lateral most port and was used to retract the fundus of the gallbladder cephalad and using forceps the infundibulum of the gallbladder was retracted laterally. Using L-hook cautery t he peritoneum overlying the Calot's triangle was opened medially and laterally until the cystic duct and the cystic artery were skeletonized. There was chronic inflammation around the cystic duct. Dissection was carried along the body of the gallbladder and after ensuring critical view of safety, 4 clips applied on the cystic duct and 3 clips applied on the cystic artery and cut leaving, 3 clips on the remaining portion of the duct and 2 clips on the remaining portion of the artery. The rest of the gallbladder was dissected off the liver using L-hook cautery. There was no bleeding or bile leaking noted from the gallbladder fossa and the clips appeared to be in place. Using electrocautery, 2 cm wedge liver biopsy was obtained from the right lobe of the liver adjacent to the gallbladder fossa. An EndoCatch bag was introduced to remove the gallbladder and the liver biopsy specimen. All the ports were removed under direct visualization and there was no bleeding noted from the port sites. The fascia of the umbilicus was closed using [id number] 0 Vicryl sutures and the subcutaneous tissue was approximated using 3-0 Vicryl sutures. The skin at all four ports were closed using 4-0 Monocryl and Dermabond. A total of 10 millimeters of 0.5% Marcaine was infiltrated around the port sites. The patient was stable throughout the procedure.
--- NOTE | 2021-05-01 09:18 | P.PCN_ITS ---
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
--- NOTE | 2021-05-01 09:18 | PM.PACU ---
PACU note PACU note: VSS, Good respiratory effort, report to EDUCATION SPEC Post-Anesthesia Exam: awake
--- NOTE | 2021-05-01 09:20 | P.PCN_ITS ---
PACU note PACU note: VSS, Good respiratory effort, report to [employer] EDUCATION CONSULTANT Post-Anesthesia Exam: awake
--- NOTE | 2021-05-01 09:20 | PM.PACU ---
PACU note PACU note: VSS, Good respiratory effort, report to [employer] Post-Anesthesia Exam: awake
[2021-05-01] MEDS: fentaNYL 50 mcg/mL INJ 2mL IVP (09:36)
[2021-05-01] MEDS: HYDROmorphone 1 mg/mL INJ 1 mL 0.5 MG IVP ×3 (10:06→10:30)
--- NOTE | 2021-05-01 14:14 | ANE.PACU2 ---
Inpatient post-anesthesia follow up: Airway intact: Yes Vital signs: Temperature 98 F Pulse Rate 76 Respiratory Rate 17 Blood Pressure 139/81 Pulse Oximetry 94 Oxygen Delivery Me thod Room Air Oxygen Flow Rate 2 Fraction of Inspir ed Oxygen Hydration adequate: Yes Nausea and vomiting: No Pain level: 3 Mental status: Baseline
== END 2021-05-01 11:30 | disposition home or self-care (01) ==
PROVIDERS: Visit Provider Surgery
PROC: 0FT44ZZ Resection of Gallbladder, Percutaneous Endoscopic Approach (ICD-10-PCS; CPT 47562; principal; 2021-05-01 07:45)
PROC: 0FB04ZX Excision of Liver, Percutaneous Endoscopic Approach, Diagnostic (ICD-10-PCS; CPT 47379; 2021-05-01 07:45)
DX: K80.10 Calculus of gallbladder with chronic cholecystitis without obstruction (principal); K21.9 Gastro-esophageal reflux disease without esophagitis; E66.01 Morbid (severe) obesity due to excess calories; Z68.30 Body mass index [BMI] 30.0-30.9, adult; M19.90 Unspecified osteoarthritis, unspecified site
CPT/HCPCS: 47100; 47562; 88304; 88307; 96374; 96375; J0690; J1100; J1170; J2405; J2704; J2710; J3010; J3490; J7030

== ENCOUNTER 2021-05-04 14:12 | Emergency (ER) | payer OTHER, SELFPAY ==
--- NOTE | 2021-05-04 03:22 | XRR_ITS ---
PROCEDURE INFORMATION: Exam: XR Chest Exam date and time: 05/04/2021 3:22 AM Age: 50 years old Clinical indication: Dyspnea; Prior surgery; Surgery date: 3-7 days post-operative; Surgery type: S/P gb 4 days ago; Additional info: Fever post op TECHNIQUE: Imaging protocol: XR of the chest. Views: 1 view. COMPARISON: ES surgery / GI images 05/01/2021 7:47 AM FINDINGS: Lungs: Unremarkable. No consolidation. Pleural spaces: Unremarkable. No pleural effusion. No pneumothorax. Heart/Mediastinum: Unremarkable. No cardiomegaly. Bones/joints: Unremarkable. XR/XR chest 1V portable [id number] IMPRESSION: No acute findings.
[2021-05-04 14:18] VITALS: BP 137/78; PULSE 85; RESP 16; TEMP 36.8; O2SAT 97
[2021-05-04 16:47] LABS: Basophils # 0.1 10^3/uL (0.0-0.1); Basophils % 0.7 %; Eosinophils # 0.1 10^3/uL (0.0-0.8); Eosinophils % 1.4 %; Hematocrit 57.9 % (42.0-52.0); Hemoglobin 19.9 g/dL (11.7-16.6); Lymphocytes # 2.4 10^3/uL (0.8-4.8); Lymphocytes % 26.3 %; Mean Corpuscular HGB Conc 34.4 g/dL (30.0-36.0); Mean Corpuscular Hemoglobin 32.4 pg (28.0-34.0); Mean Corpuscular Volume 94.1 fl (80-94); Mean Platelet Volume 10.2 fL (7.4-10.4); Monocytes # 0.7 10^3/uL (0.2-0.9); Monocytes % 7.9 %; Neutrophils % 63.5 %; Nucleated Red Blood Cells % 0 %; Platelet Count 262 10^3/cmm (130-400); Red Blood Count 6.15 10^6/uL (4.1-5.3); Red Cell Distribution Width 12.3 % (12.1-15.1); White Blood Count 9.1 10^3/uL (4.0-10.0)
[2021-05-04 17:04] LABS: Alanine Aminotransferase 61 U/L (0-41); Albumin Level 4.1 g/dL (3.5-5.2); Alkaline Phosphatase 87 IU/L (40-130); Anion Gap 17.4 (5-19); Aspartate Amino Transferase 51 U/L (0-40); Blood Urea Nitrogen 14 mg/dL (6-20); Calcium 8.8 mg/dL (8.5-10.5); Carbon Dioxide 26 mmol/L (22-29); Chloride 100 mmol/L (98-107); Globulin 3.3 g/dL (1.3-4.6); Glomerular Filtration Rate 90.1 mL/min (90-130); Glucose 104 mg/dL (65-115); Lipase 20 U/L (13-60); Osmolality Calculated 289 mOsm/kg (285-295); Potassium 4.4 mmol/L (3.5-5.1); Sodium 139 mmol/L (136-145); Total Bilirubin 1.3 mg/dL (0.15-1.2); Total Protein 7.4 g/dL (6.6-8.7)
--- NOTE | 2021-05-04 18:32 | CTR_ITS ---
PROCEDURE INFORMATION: Exam: CT Abdomen And Pelvis With Contrast Exam date and time: 05/04/2021 6:32 PM Age: 50 years old Clinical indication: Abdominal pain; Prior surgery; Surgery date: 3-7 days post-operative; Surgery type: Gb; Patient HX: S/P cholecystectomy x4 days ago. Ruq pain w/ fever; Additional info: Ruq pain fever post op TECHNIQUE: Imaging protocol: Computed tomography of the abdomen and pelvis with contrast. Radiation optimization: All CT scans at this facility use at least one of these dose optimization techniques: automated exposure control; mA and/or kV adjustment per patient size (includes targeted exams where dose is matched to clinical indication); or iterative reconstruction. Contrast material: OMNI 300; Contrast volume: 95 ml; Contrast route: INTRAVENOUS (IV); COMPARISON: ES surgery / GI images 05/01/2021 7:47 AM RADIATION DOSE METRICS: Total DLP (mGy-cm): 1821.75 FINDINGS: Lungs: Bibasilar atelectasis versus infiltrate. Liver: Hepatic steatosis. Gallbladder and bile ducts: Cholecystectomy. Pancreas: Normal. No ductal dilation. Spleen: Spleen enlarged at 13.9 cm. Adrenal glands: Normal. No mass. Kidneys and ureters: Normal. No hydronephrosis. Stomach and bowel: Prominent fluid in the small bowel may reflect an ileus. Appendix: No evidence of appendicitis. Intraperitoneal space: Moderate ascites in the abdomen. Vasculature: Unremarkable. No abdominal aortic aneurysm. Lymph nodes: Unremarkable. No enlarged lymph nodes. Urinary bladder: Unremarkable as visualized. Reproductive: Unremarkable as visualized. Bones/joints: Unremarkable. No acute fracture. Soft tissues: Subcutaneous edema over the right abdomen and nonlocalized fluid may be postsurgical in nature. Umbilical subcutaneous punctate amount of air likely postsurgical in nature. CT/CT abdomen pelvis w con* [id number] IMPRESSION: 1. Bibasilar atelectasis versus infiltrate. 2. Prominent fluid in the small bowel may reflect an ileus. 3. Subcutaneous edema over the right abdomen and nonlocalized fluid may be postsurgical in nature. 4. Moderate nonlocalized ascites in the abdomen. 5. Hepatic steatosis. 6. Cholecystectomy.
[2021-05-04] MEDS: iohexol 300 mg/mL 100 mL Btl IV (18:45)
--- NOTE | 2021-05-04 19:04 | W.ED.ABDPA2 ---
HPI - Abdominal Pain General: Chief Complaint: Abdominal Pain Stated Complaint: Surg Thursday and seems to be getting worse Time Seen by Provider: 05/04/21 17:59 History of Present Illness: HPI narrative: 50-year-old male who had laparoscopic cholecystectomy 4 days ago. He has had increasing pain for the past couple of days, and a temperature over 100 at home. He says he has had a mild cough, but no real shortness of breath. No vomiting. His belly feels tight. MD elicited complaint: abdominal pain Pertinent past history: other Onset (ago): day(s) Pain Consistency: constant Location: Diffuse Severity: moderate Quality: aching Migration to: no migration Relieving factors: nothing Context: recent surgery/procedure Associated Symptoms: Reports fever(s), nausea and poor appetite; Denies coffee ground emesis, constipation, diarrhea, hematochezia and vomiting Treatments prior to arrival: prescription analgesics Review of Systems Const: Reports: fever(s) Card: Denies: chest pain or palpitations Resp: Reports: non-productive cough; Denies: dyspnea or productive cough GI: Reports: nausea; Denies: vomiting, coffee ground emesis, diarrhea, constipation or hematochezia PFSH ED PFSH: Medical History (Updated 05/04/21 @ 20:50 by William Arana DO) Hemochromatosis Surgical History (Updated 05/01/21 @ 08:55 by Ten Vincent MD) H/O esophagogastroduodenoscopy Status post colonoscopy Status post laparoscopic cholecystectomy (05/01/21) with wedge liver biopsy Family History Other Cancer Denies family history of Anesthesia complication Bleeding disorder Social History Alcohol intake: current Alcohol intake frequency: holidays/special occasions only Physical Exam Const: COMMON NORMALS: no acute distress, patient oriented x3 and alert GENERAL APPEARANCE: not frail appearing HENMT: COMMON NORMALS: normocephalic HEAD & SCALP: normocephalic Eye: COMMON NORMALS: Equal, round and reactive pupils present and EOMs intact bilaterally PUPIL: Yes Equal, round and reactive pupils present Chest: COMMONS NORMALS: normal inspection of the chest Resp: COMMON NORMALS: normal respiratory effort, No use of accessory muscles and clear to auscultation bilaterally AUSCULTATION: clear to auscultation bilaterally Cardio: COMMON NORMALS: regular rate and regular rhythm RATE: regular rate RHYTHM: regular rhythm Neuro: COMMON NORMALS: patient oriented x3 SENSORIUM/ORIENTATION: Yes alert Course Vital Signs: Vital signs: Vital Signs Temperature 98.3 F 05/04/21 14:18 Pulse Rate 85 05/04/21 14:18 Respiratory Rate 16 05/04/21 14:18 Blood Pressure 137/78 05/04/21 14:18 Pulse Oximetry 97 05/04/21 14:18 MDM - Abdominal Pain MDM Narrative: Medical decision making narrative: 50-year-old male who is postoperative day four from cholecystectomy. Experiencing belly pain. White blood cell count is nine. BMP is normal. Bilirubin is minimally elevated. There is a mild amount of fluid in the pelvis on CT. No gallbladder fossa findings. There is an ileus present. He will be given treatment for this. Close outpatient follow-up. CT showed some atelectasis versus infiltrate in the lower lungs, but chest x-ray is essentially negative. Lab Data: Labs: Lab Results 05/04/21 05/04/21 05/04/21 16:33 16:33 19:24 WBC 9.1 10^3/uL 10^3/ uL (4.0-10.0) RBC 6.15 10^6/uL H 10 ^6/uL (4.1-5.3) Hgb 19.9 g/dL H g/dL (11.7-16.6) Hct 57.9 % H % (42.0-52.0) MCV 94.1 fl H fl (80-94) MCH 32.4 pg pg (28.0-34.0) MCHC 34.4 g/dL g/dL (30.0-36.0) RDW 12.3 % % (12.1-15.1) Plt Count 262 10^3/cmm 10^3 /cmm (130-400) MPV 10.2 fL fL (7.4-10.4) Neut % (Auto) 63.5 % % Lymph % (Auto) 26.3 % % Mills % (Auto) 7.9 % % Eos % (Auto) 1.4 % % Baso % (Auto) 0.7 % % Neut # (Auto) 5.80 10^3/uL 10^3 /uL (1.8-7.7) Lymph # (Auto) 2.4 10^3/uL 10^3/ uL (0.8-4.8) Mills # (Auto) 0.7 10^3/uL 10^3/ uL (0.2-0.9) Eos # (Auto) 0.1 10^3/uL 10^3/ uL (0.0-0.8) Baso # (Auto) 0.1 10^3/uL 10^3/ uL (0.0-0.1) Nucleated RBC % (a uto) 0 % % Nucleated RBCs # 0.0 /100WBC /100W BC Sodium 139 mmol/L mmol/L (136-145) Potassium 4.4 mmol/L mmol/L (3.5-5.1) Chloride 100 mmol/L mmol/L (98-107) Carbon Dioxide 26 mmol/L mmol/L (22-29) Anion Gap 17.4 (5-19) BUN 14 mg/dL mg/dL (6-20) Creatinine 0.9 mg/dL mg/dL (0.7-1.2) GFR Calculation 90.1 mL/min mL/mi n (90-130) Glucose 104 mg/dL mg/dL (65-115) Calculated Osmolal ity 289 mOsm/kg mOsm/ kg (285-295) Calcium 8.8 mg/dL mg/dL (8.5-10.5) Total Bilirubin 1.3 mg/dL H mg/dL (0.15-1.2) AST 51 U/L H U/L (0-40) ALT 61 U/L H U/L (0-41) Alkaline Phosphata se 87 IU/L IU/L (40-130) Total Protein 7.4 g/dL g/dL (6.6-8.7) Albumin 4.1 g/dL g/dL (3.5-5.2) Globulin 3.3 g/dL g/dL (1.3-4.6) Lipase 20 U/L U/L (13-60) Urine Color Yellow (Yellow) Urine Appearance Clear (CLEAR) Urine pH 5 (5-7) Ur Specific Gravit y 1.010 (1.005-1.030) Urine Protein Neg (Negative) Urine Glucose (UA) Norm (Normal) Urine Ketones 1+ H (Negative) Urine Blood Neg (Negative) Urine Nitrate Negative (Negative) Urine Bilirubin Neg (Negative) Urine Urobilinogen Norm mg/dL mg/dL (Negative) Ur Leukocyte Swapna ase Negative (Negative) Discharge Plan Discharge Patient Disposition: Home Clinical Impression: Ileus following gastrointestinal surgery Condition: Stable Prescriptions: No Action pantoprazole 40 mg tablet,delayed release (DR/EC) 40 mg PO DAILY 30 Days Qty: 30 RF: 2 Zofran 4 mg tablet 4 mg PO Q6H PRN (Reason: nausea and vomiting) Qty: 20 RF: 0 Colace 100 mg capsule 100 mg PO BID Qty: 30 RF: 0 hydrocodone-acetaminophen 5-325 mg tablet 1 tab PO Q6H PRN (Reason: pain) Qty: 20 RF: 0 Discharge Orders: Discharge ED (Routine); Ordered 05/04/21 Ordered By: William Arana Referrals: Ten Vincent MD [Physician] - 1-3 days [facility] [Primary Care Provider] - Patient Instructions: Ileus (ED), Opioid Safety Activity Restrictions/Additional Instructions: Return for continued fever greater than 100, vomiting liquids or medications, worsening pain despite treatment, other concerning symptoms. Call your surgeon Thursday morning, let them know you were seen here. They will likely want to see you in follow-up. 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
[2021-05-04 19:26] LABS: Add Urine Microscopic? NO; Charge for UA Resulting for Rev
[2021-05-04 19:32] LABS: Bilirubin Urine Neg (Negative); Blood Urine Neg (Negative); Glucose Urine UA Norm (Normal); Ketones Urine 1+ (Negative); Leukocyte Esterase Urine Negative (Negative); Nitrate Urine Negative (Negative); Protein Urine Neg (Negative); Urine Appearance Clear (CLEAR); Urine Color Yellow (Yellow); Urobilinogen Urine Norm (Negative); pH Urine 5 (5-7)
[2021-05-04] MEDS: sodium chloride 0.9% 1,000 ML 999 ML IV (19:49)
[2021-05-04] MEDS: magnesium hydroxide 30 mL UDC PO (21:00)
[2021-05-04] MEDS: mineral oil 30 mL UDC PO (21:00)
[2021-05-04] MEDS: lactulose oral liq 20 gm/30 mL UDC PO (21:00)
== END 2021-05-04 21:01 | disposition home or self-care (01) ==
PROVIDERS: Physician Assistant; Emergency Provider Emergency Medicine
DX: K91.89 Other postprocedural complications and disorders of digestive system (principal); K56.7 Ileus, unspecified; Z79.891 Long term (current) use of opiate analgesic
CPT/HCPCS: 36415; 71045; 74177; 80053; 81003; 83690; 85025; 96360; 99284; J7030; Q9967

== ENCOUNTER 2021-05-21 10:37 | Outpatient (CLI) | payer OTHER, SELFPAY ==
[2021-05-21 11:52] LABS: Basophils % 0.7 %; Eosinophils # 0.2 10^3/uL (0.0-0.8); Eosinophils % 2.9 %; Hemoglobin 17.5 g/dL (11.7-16.6); Lymphocytes # 1.7 10^3/uL (0.8-4.8); Lymphocytes % 30.6 %; Mean Corpuscular HGB Conc 34.3 g/dL (30.0-36.0); Mean Corpuscular Hemoglobin 32.6 pg (28.0-34.0); Mean Platelet Volume 10.6 fL (7.4-10.4); Monocytes # 0.3 10^3/uL (0.2-0.9); Monocytes % 5.6 %; Neutrophils # 3.33 10^3/uL (1.8-7.7); Nucleated Red Blood Cells % 0 %; Platelet Count 260 10^3/cmm (130-400); Red Blood Count 5.37 10^6/uL (4.1-5.3); Red Cell Distribution Width 11.9 % (12.1-15.1); White Blood Count 5.6 10^3/uL (4.0-10.0)
[2021-05-21 12:06] LABS: Alanine Aminotransferase 30 U/L (0-41); Albumin Level 3.8 g/dL (3.5-5.2); Alkaline Phosphatase 72 IU/L (40-130); Anion Gap 15.2 (5-19); Aspartate Amino Transferase 40 U/L (0-40); Blood Urea Nitrogen 10 mg/dL (6-20); Calcium 8.5 mg/dL (8.5-10.5); Carbon Dioxide 23 mmol/L (22-29); Chloride 104 mmol/L (98-107); Ferritin 391 ng/mL (30-400); Globulin 2.8 g/dL (1.3-4.6); Glomerular Filtration Rate 120.4 mL/min (90-130); Glucose 93 mg/dL (65-115); Iron 133 ug/dL (59-158); Lipase 26 U/L (13-60); Osmolality Calculated 285 mOsm/kg (285-295); Percent Saturation 57.8 % (20-50); Potassium 4.2 mmol/L (3.5-5.1); Sodium 138 mmol/L (136-145); Total Bilirubin 0.8 mg/dL (0.15-1.2); Total Iron Binding Capacity 230 mcg/dl; Total Protein 6.6 g/dL (6.6-8.7); Unsaturated Iron Binding 97 ug/dL (112-347)
--- NOTE | 2021-05-21 12:35 | XRR_ITS ---
PROCEDURE INFORMATION: Exam: XR Abdomen Exam date and time: 05/21/2021 12:35 PM Age: 50 years old Clinical indication: Abdominal pain; Additional info: Ruq abdominal pain TECHNIQUE: Imaging protocol: XR of the abdomen. Views: 2 Views. Upright and supine views. COMPARISON: CT abdomen pelvis w con* [id number] 05/04/2021 6:43 PM FINDINGS: Gastrointestinal tract: Normal. No bowel dilation. There is evidence of cholecystectomy. Intraperitoneal space: Normal. No free air. Bones/joints: Unremarkable for age. XR/XR abdomen min 2V [id number] IMPRESSION: No acute findings.
[2021-05-21 14:39] LABS: Ammonia 21 umol/L (16-60)
[2021-05-21 14:43] LABS: INR 1.25 (0.8-1.2)
--- NOTE | 2021-05-22 12:26 | ONC CON_ITS ---
Dr. May New Patient Note Patient: Henry Blanc Unit #: [id number]: 1970 Dicatated By: Bayron May M.D.Date of Visit: May 21, 2021 Onc MED New Patient/Consult Referring Physician: Dr. Phi Tsang M.D. Chief Complaint: Elevated serum ferritin/hemochromatosis. History of Present Illness: This is a 50 year-old man with elevated serum ferritin level and presumed hereditary hemochromatosis. I had seen him initially in January of 2010. Prior to that visit, he had been in the emergency room and his ferritin was found to be elevated at 621 ng/mL. Serum iron studies had shown his transferrin saturation normal at 34%. A repeat ferritin was still significantly elevated at 537 ng/mL. His subsequent serum iron studies had shown transferrin saturations more in the low to mid 20 percentile range. 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 That particular pattern, however, has not been reported to be associated with iron overload. He did have mildly elevated liver enzymes. A liver biopsy showed grade 3-4 steatosis, but just mild iron deposition (grade 1/4). A viral hepatitis profile was negative. He had complained of severe fatigue and he also had significant musculoskeletal pain. I had not been able to determine any specific cause for those symptoms. I had initially opted to just follow him on observation/symptomatic management. During subsequent follow-up, he continued to complain of severe fatigue and generalized musculoskeletal pain. His serum ferritin levels had initially remained similarly elevated. However, as of August 2016 it had increased to 1133 ng/mL. His SGPT had become slightly elevated. With those findings, I opted to have him start a phlebotomy program. His repeat laboratory studies on 07/16/2017 showed elevated hemoglobin at 17.6 g with hematocrit 54.9%. His chem profile was unremarkable. The liver enzymes were normal. His further lab studies in 07/22/2017 included serum ferritin, which had dropped to 73 ng/mL. His serum iron was 136 mcg/dL with transferrin saturation 46%. Given the discrepancy in those results compared to his previous studies, he had further laboratory evaluation on 08/12/2017. It included a CBC which showed further increase in the hemoglobin to 18.9 g with hematocrit 57.2%. The white blood cell count was normal at 5000 and the platelet count was normal at 239,000. His serum iron was again elevated at 205 mcg/dL with transferrin saturation 62%. The ferritin was stable at 73 ng/mL. B12 level was normal 393 pg/mL. The erythropoietin level was 8 mIU/mL. The JAK2 gene mutation was not detected. I had seen him for a follow-up visit again in December 2017. At that point there had not been a significant change in his symptoms. He continued to have episodes of severe fatigue, and he complained that he hurt so bad at times that he couldn't stand it. However, he was working full-time and maintaining normal activity. At that point I had stopped the phlebotomies, as his laboratory studies had shown low transferrin saturation at 14.2% and ferritin low at 17 ng/mL. Subsequent to that visit he had established primary care with Dr. Mike Woo in [place]. I don't have records, but he was referred for GI evaluation with EGD and colonoscopy, both of which were apparently negative. He was also recommended to be seen a pain clinic for management of his chronic pain. His repeat laboratory studies in October 2018 continued to show elevated hemoglobin at 18.8 g with hematocrit 54%. The white blood cell count was 4500 and the platelet count was 210,000. The SGPT was slightly elevated at 64. The other liver enzymes were normal. The serum iron studies showed elevated transferrin saturation of 58%. The ferritin was 161 ng/mL. Given those findings, I opted to just continue with symptomatic management. I had seen him for a follow-up visit on 03/15/2020. He was having significant fatigue and he also complained of having episodes of pain in his right upper quadrant area. The pain was worse after eating, but it also had a positional component. His laboratory studies included CBC showing mildly elevated hemoglobin/hematocrit levels at 17.4 g and 51.5%. The red cell indices were normal. White blood cell count was normal at 5000 and platelet count was normal at 178,000. His sed rate was 0 and C-reactive protein was normal at 3.2 mg/L. Comprehensive metabolic profile showed normal renal function with BUN 16 and creatinine 0.8 mg/dL. Liver enzymes were slightly elevated with SGOT 43/40 and SGPT 67/41 U/L. Bilirubin and alkaline phosphatase were normal. The serum iron studies showed elevated transferrin saturation at 59.1% with ferritin mildly elevated at 512 ng/mL. B12 level was normal at 494 pg/mL and TSH was normal at 1.66 ???IU/mL With his transferrin saturation and ferritin both elevated, I did opt to phlebotomize him. Subsequent to that visit, he had seen Dr. Vincent in regard to his right upper quadrant abdominal pain. Gallbladder ultrasound showed mild hepatomegaly. It was otherwise unrevealing. A nuclear medicine hepatobiliary scan showed no evidence of acute or chronic cholecystitis. The gallbladder ejection fraction was within normal limits at 95%. He was given a prescription for pantoprazole 40 mg daily. During follow-up he continued to have significant pain in the right upper quadrant area, and on 05/01/2021 he underwent laparoscopic cholecystectomy. Grossly there did appear to be chronic inflammation around the cystic duct. The most significant finding was that the liver had a nodular appearance, consistent with cirrhosis. Liver biopsy did confirm liver cirrhosis. Iron stains were focally positive. Also noted was grade 4 steatosis. The gallbladder showed cholelithiasis with chronic cholecystitis and cholesterolosis. There was no evidence of malignancy. He is seen for a scheduled follow-up visit. He has not been feeling good since his surgery last month. He continues to have pain in the right upper quadrant area and he also has been having abdominal swelling/bloating and nausea. He can feel fluid sloshing around in his abdomen when he moves. He says he is not hungry, but he does eat. He is having bowel movements, with mostly soft stool. He has not been aware of any blood in the stool. He has very limited activity. He has not been able to work for 2 to 3 months. ECOG score is 2. He was having low-grade fever for 3 to 4 days, maximum 100 to 101 degrees. It has now resolved, but he still intermittently feels clammy. He has not had sore mouth or throat. He has had a dry cough for for 5 days. He is short of breath with any activity. He has had a little bit of chest pain. Bladder function remains adequate, though he has noticed that the volume of his urine output has declined. He continues to have musculoskeletal pain, but it is not any worse. He does not complain of headache or dizziness. He has no numbness/paresthesia or other focal neurologic symptoms. Past Medical History: He has hereditary hemochromatosis, and he has had chronic fatigue and chronic musculoskeletal pain. Past Surgical History: His surgical/procedural history includes laparoscopic cholecystectomy with liver biopsy in 2020 and EGD and colonoscopy in 2019. Medications: Pantoprazole 40 mg daily. Allergies: No Known Allergies. Social History: Mr. Blanc is . 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 He is a non-smoker. He had some alcohol use in the past, but not heavy. He had quit drinking prior to my initial visit with him in 2009. Family History: His father had lymphoma and of complications from his treatment. His mother has scleroderma and pulmonary hypertension. Vital Signs: Performed on May 21, 2021 11:56: 4, 33.48 (HIGH), 2.13 sq.m, 68.00 in, 97 %, 81 /min, 24 /min, 119/75 mm(hg), 98.1 F (LOW), 220.2 lbs (HIGH), and Performed on Dec 06, 2020 09:42: 0. Physical Examination: Constitutional - He does not appear acutely ill, Eyes - Sclerae nonicteric. Conjunctivae clear, ENMT - No lesions noted in the oral cavity, Hematologic/Lymphatic - No cervical, clavicular, or axillary adenopathy, Respiratory - Lungs show good air movement bilaterally, but he does have some slight wheezing, Cardiovascular - Heart rhythm is regular. There is no murmur, gallop, or rub noted, Abdomen - Moderately distended with ascites. Liver is not enlarged. Spleen is not palpable. There is no abdominal mass noted and there is no inguinal adenopathy, Extremities - No edema, Neurologic - No focal neurologic deficits noted. Lab/Imaging: Test performed on May 21, 2021 14:04 Ammonia 21 umol/L PT 16.00 SECONDS INR 1.25 Test performed on May 21, 2021 11:35 Ferritin 391 ng/mL Iron 133 mcg/dL Lipase 26 U/L Sodium 138 mmol/L Iron Binding Capacity (TIBC) 230 mcg/dl Potassium 4.2 mmol/L % Iron Saturation 57.8 % Chloride 104 mmol/L CO2 23 mmol/L UIBC 97 mcg/dL Anion Gap 15.2 BUN 10 mg/dL Creatinine 0.7 mg/dL Cr Clearance (Est) 182.3300 mL/min eGFR 120.4 mL/min Glucose 93 mg/dL Osmolality - Calculated 285 mOsm/kg Calcium 8.5 mg/dL Protein, Total 6.6 g/dL Albumin 3.8 g/dL Globulin 2.8 g/dL Bilirubin, Total 0.8 mg/dL ALT (SGPT) 30 U/L AST (SGOT) 40 U/L Alkaline Phosphatase 72 IU/L WBC 5.6 10 3/uL RBC 5.37 10 6/uL HGB 17.5 g/dL HCT 51.0 % MCV 95.0 fl MCH 32.6 pg MCHC 34.3 g/dL RDW 11.9 % Platelet Count 260 10 3/cmm MPV 10.6 fL Neutrophils 3.33 10 3/uL Lymphocytes 1.7 10 3/uL Monocytes 0.3 10 3/uL Eosinophils 0.2 10 3/uL Basophils 0.0 10 3/uL Neutrophil % 60.0 % Lymphocyte % 30.6 % Monocyte % 5.6 % Eosinophil % 2.9 % Basophils % 0.7 % NRBC % 0 % Problem List: 1. Hereditary hemochromatosis. It is uncertain to what extent there may be associated iron overload. 2. He has complained of severe chronic fatigue and generalized musculoskeletal pain. I have never able to determine a specific cause for it. 3. He also has complained of chronic/persistent abdominal pain in the right upper quadrant area. He was found to have evidence of liver cirrhosis at laparoscopic cholecystectomy on 05/01/2021. Problems Addressed with this Encounter and Plan: 1. Patient with hereditary hemochromatosis, presenting with moderately elevated serum ferritin. His HFE gene analysis showed double heterozygosity for the S65C and the H63D mutations, but that pattern has not been reported to be associated with iron overload. His liver biopsy in July 2010 showed marked steatosis, grade 3-4/4, but just grade 1/4 iron deposition. There was mild collagen fibrosis at that time.. I had initially opted to follow him on observation, as there was no convincing evidence of associated iron overload. As of August 2016 his ferritin level had increased to over 1000 ng/mL with his sedimentation rate remaining low. At that point I did opt to have him start phlebotomies. During subsequent follow-up his iron studies had been somewhat variable, but his most common pattern was a mild to moderately elevated serum ferritin with normal transferrin saturation. With those findings I had opted to continue expectant management. During that time he continued to have chronic right upper quadrant abdominal pain. He ultimately underwent laparoscopic cholecystectomy on 05/01/2021. The gallbladder did show cholelithiasis with chronic cholecystitis. The most significant finding was that the liver had a nodular appearance, and liver biopsy did show evidence of cirrhosis. There was again noted to be grade 4 steatosis. The iron stains were just focally positive. Given the biopsy findings, I am still uncertain to what extent the cirrhosis may be due to iron overload versus nonalcoholic steatohepatitis. I suspect it is more likely the latter. In any case, he has developed ascites following the gallbladder surgery/liver biopsy. I am going to go ahead and set him up for ultrasound-guided paracentesis and I will now make arrangements for referral to a radiotelegraph operator. Although I am still uncertain to what extent he may actually have iron overload, at this point I am going to be more aggressive with his phlebotomy regimen. He will be phlebotomized today and I will continue monthly phlebotomies until his transferrin saturation and ferritin are in target range. 2. He has complained of severe chronic fatigue and generalized musculoskeletal pain. A specific cause has not been determined. He had been on symptomatic management with hydrocodone/APAP, but that now has been stopped. Signed By: Bayron May M.D. <<Signature on File>>
== END 2021-05-21 10:38 | disposition home or self-care (01) ==
PROVIDERS: Visit Provider Internal Medicine Medical Oncology
DX: E83.110 Hereditary hemochromatosis (principal); R53.82 Chronic fatigue, unspecified; G89.29 Other chronic pain; R10.11 Right upper quadrant pain; R79.89 Other specified abnormal findings of blood chemistry
CPT/HCPCS: 36415; 74019; 80053; 82140; 82728; 83540; 83550; 83690; 85025; 85610; 99195; 99215

== ENCOUNTER 2021-05-29 10:27 | Day surgery (SDC) | payer OTHER, SELFPAY ==
[2021-05-28 09:05] VITALS: BMI 32.5
[2021-05-29 10:50] VITALS: BP 132/87; PULSE 95; RESP 17; TEMP 36.9; O2SAT 98
--- NOTE | 2021-05-29 10:58 | US_ITS ---
WS: [id number] ULTRASOUND-GUIDED PARACENTESIS CLINICAL INFORMATION: elevated serum ferritin, hemacromatosis COMPARISON: None. Procedure Informed consent: The risks, benefits, and alternatives of the procedure were discussed with the carlyle ent. Verbal and written consent was obtained. Timeout: A timeout was performed to confirm the correct patient, procedure, and site. Preparation: A suitable skin site was identified. The patient was prepped and draped in usual sterile fashion. Lidocaine 1% was used for local anesthesia. Catheter: 4 Polish One-step Yueh catheter. Side: Right Lower quadrant. Fluid Volume: 3600 ml Color: Clear yellow DISPOSITION: Discarded safely. Complications: None. Patient disposition: Discharged from the department in stable condition. US/US paracentesis abd w [id number] IMPRESSION: Uncomplicated ultrasound-guided paracentesis. Removal of 3600 cc ascites
[2021-05-29 12:07] VITALS: BP 146/69; PULSE 76; RESP 18; O2SAT 96
[2021-05-29 12:14] LABS: Body Fluid Polynuclear #Cells 0.045; Body Fluid WBC 1738 /uL; Monocytes # Body Fluid 1.693
[2021-05-29 12:50] LABS: PATH Referral YES
[2021-05-29 12:55] LABS: Apprearance, Body Fluid CLEAR; Color, Body Fluid YELLOW
[2021-05-29 13:16] LABS: Total Protein Body Fluid 3.6 g/dL
== END 2021-05-29 12:20 | disposition home or self-care (01) ==
LOC: GILAB 10:32
PROVIDERS: Internal Medicine Medical Oncology; Visit Provider Radiology Neuroradiology
PROC: (CPT 49082; principal; 2021-05-29 12:00)
DX: R18.8 Other ascites (principal)
CPT/HCPCS: 49083; 80500; 84157; 87070; 87075; 87205; 88112; 88305; 89050

== ENCOUNTER 2021-06-25 08:50 | Outpatient (CLI) | payer OTHER, SELFPAY ==
[2021-06-25 09:29] LABS: Basophils % 0.8 %; Eosinophils # 0.2 10^3/uL (0.0-0.8); Eosinophils % 4.1 %; Hematocrit 50.9 % (42.0-52.0); Hemoglobin 17.3 g/dL (11.7-16.6); Lymphocytes # 1.5 10^3/uL (0.8-4.8); Lymphocytes % 28.7 %; Mean Corpuscular Volume 94.3 fl (80-94); Mean Platelet Volume 10.7 fL (7.4-10.4); Monocytes # 0.5 10^3/uL (0.2-0.9); Neutrophils # 2.93 10^3/uL (1.8-7.7); Neutrophils % 57.2 %; Nucleated Red Blood Cells % 0 %; Platelet Count 192 10^3/cmm (130-400); Red Cell Distribution Width 11.8 % (12.1-15.1); White Blood Count 5.1 10^3/uL (4.0-10.0)
[2021-06-25 09:54] LABS: Alanine Aminotransferase 56 U/L (0-41); Albumin Level 4.8 g/dL (3.5-5.2); Alkaline Phosphatase 93 IU/L (40-130); Aspartate Amino Transferase 54 U/L (0-40); Blood Urea Nitrogen 21 mg/dL (6-20); Calcium 9.6 mg/dL (8.5-10.5); Carbon Dioxide 24 mmol/L (22-29); Chloride 102 mmol/L (98-107); Ferritin 167 ng/mL (30-400); Globulin 2.5 g/dL (1.3-4.6); Glomerular Filtration Rate 103.2 mL/min (90-130); Glucose 106 mg/dL (65-115); Iron 102 ug/dL (59-158); Osmolality Calculated 289 mOsm/kg (285-295); Sodium 138 mmol/L (136-145); Total Bilirubin 0.6 mg/dL (0.15-1.2); Total Iron Binding Capacity 339 mcg/dl; Total Protein 7.3 g/dL (6.6-8.7); Unsaturated Iron Binding 237 ug/dL (112-347)
[2021-06-25 09:57] LABS: Anion Gap 17.2 (5-19); Potassium 5.2 mmol/L (3.5-5.1)
== END 2021-06-25 08:51 | disposition home or self-care (01) ==
LOC: ONCMED 08:53
PROVIDERS: Visit Provider Nurse Practitioner Family
DX: E83.110 Hereditary hemochromatosis (principal); R53.82 Chronic fatigue, unspecified; M79.18 Myalgia, other site; K74.60 Unspecified cirrhosis of liver; Z79.899 Other long term (current) drug therapy
CPT/HCPCS: 36415; 80053; 82728; 83540; 83550; 85025; 99195; 99214

== ENCOUNTER 2021-07-23 12:00 | Outpatient (CLI) | payer OTHER, SELFPAY ==
[2021-07-23 13:12] LABS: Basophils % 0.4 %; Eosinophils # 0.1 10^3/uL (0.0-0.8); Eosinophils % 2.6 %; Hematocrit 50.4 % (42.0-52.0); Hemoglobin 17.1 g/dL (11.7-16.6); Lymphocytes # 1.4 10^3/uL (0.8-4.8); Lymphocytes % 30.8 %; Mean Corpuscular HGB Conc 33.9 g/dL (30.0-36.0); Mean Corpuscular Volume 94.2 fl (80-94); Mean Platelet Volume 11.3 fL (7.4-10.4); Monocytes # 0.3 10^3/uL (0.2-0.9); Monocytes % 5.5 %; Neutrophils # 2.74 10^3/uL (1.8-7.7); Neutrophils % 60.5 %; Nucleated Red Blood Cells % 0 %; Platelet Count 197 10^3/cmm (130-400); Red Blood Count 5.35 10^6/uL (4.1-5.3); Red Cell Distribution Width 11.9 % (12.1-15.1); White Blood Count 4.5 10^3/uL (4.0-10.0)
[2021-07-23 13:41] LABS: Alanine Aminotransferase 45 U/L (0-41); Albumin Level 4.6 g/dL (3.5-5.2); Alkaline Phosphatase 80 IU/L (40-130); Aspartate Amino Transferase 41 U/L (0-40); Blood Urea Nitrogen 17 mg/dL (6-20); Calcium 9.6 mg/dL (8.5-10.5); Carbon Dioxide 24 mmol/L (22-29); Chloride 104 mmol/L (98-107); Ferritin 113 ng/mL (30-400); Globulin 3.3 g/dL (1.3-4.6); Glomerular Filtration Rate 120.4 mL/min (90-130); Glucose 125 mg/dL (65-115); Iron 142 ug/dL (59-158); Osmolality Calculated 291 mOsm/kg (285-295); Percent Saturation 43.1 % (20-50); Sodium 139 mmol/L (136-145); Total Bilirubin 0.6 mg/dL (0.15-1.2); Total Iron Binding Capacity 329 mcg/dl; Total Protein 7.9 g/dL (6.6-8.7); Unsaturated Iron Binding 187 ug/dL (112-347)
[2021-07-23 13:42] LABS: Anion Gap 15.3 (5-19); Potassium 4.3 mmol/L (3.5-5.1)
[2021-07-23 14:52] LABS: Thyroid Stimulating Hormone 1.28 uIU/mL (0.27-4.20); Vitamin B12 394 pg/mL (232-1245)
--- NOTE | 2021-07-24 09:06 | ONC FU_ITS ---
Annemarie Nguyen Progress Note Patient: Henry Blanc Unit #: [id number]: 1970 Dicatated By: Annemarie Nguyen N.P.Date of Visit:Jul 23, 2021 Onc MED Follow-up/Prog Note Chief Complaint: Elevated serum ferritin/hemochromatosis. History of Present Illness: This is a 50 year-old man with elevated serum ferritin level and presumed hereditary hemochromatosis. Dr. Beltrán had seen him initially in January of 2010. Prior to that visit, he had been in the emergency room and his ferritin was found to be elevated at 621 ng/mL. Serum iron studies had shown his transferrin saturation normal at 34%. A repeat ferritin was still significantly elevated at 537 ng/mL. His subsequent serum iron studies had shown transferrin saturations more in the low to mid 20 percentile range. 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 That particular pattern, however, has not been reported to be associated with iron overload. He did have mildly elevated liver enzymes. A liver biopsy showed grade 3-4 steatosis, but just mild iron deposition (grade 1/4). A viral hepatitis profile was negative. He had complained of severe fatigue and he also had significant musculoskeletal pain. Dr. Beltrán had not been able to determine any specific cause for those symptoms. Dr Beltrán had initially opted to just follow him on observation/symptomatic management. During subsequent follow-up, he continued to complain of severe fatigue and generalized musculoskeletal pain. His serum ferritin levels had initially remained similarly elevated. However, as of August 2016 it had increased to 1133 ng/mL. His SGPT had become slightly elevated. With those findings, Dr. Beltrán opted to have him start a phlebotomy program. His repeat laboratory studies on 07/16/2017 showed elevated hemoglobin at 17.6 g with hematocrit 54.9%. His chem profile was unremarkable. The liver enzymes were normal. His further lab studies in 07/22/2017 included serum ferritin, which had dropped to 73 ng/mL. His serum iron was 136 mcg/dL with transferrin saturation 46%. Given the discrepancy in those results compared to his previous studies, he had further laboratory evaluation on 08/12/2017. It included a CBC which showed further increase in the hemoglobin to 18.9 g with hematocrit 57.2%. The white blood cell count was normal at 5000 and the platelet count was normal at 239,000. His serum iron was again elevated at 205 mcg/dL with transferrin saturation 62%. The ferritin was stable at 73 ng/mL. B12 level was normal 393 pg/mL. The erythropoietin level was 8 mIU/mL. The JAK2 gene mutation was not detected. Dr. Beltrán had seen him for a follow-up visit again in December 2017. At that point there had not been a significant change in his symptoms. He continued to have episodes of severe fatigue, and he complained that he hurt so bad at times that he couldn't stand it. However, he was working full-time and maintaining normal activity. At that point Dr. Beltrán had stopped the phlebotomies, as his laboratory studies had shown low transferrin saturation at 14.2% and ferritin low at 17 ng/mL. Subsequent to that visit he had established primary care with Dr. Mike Woo in [place]. We don't have records, but he was referred for GI evaluation with EGD and colonoscopy, both of which were apparently negative. He was also recommended to be seen a pain clinic for management of his chronic pain. His repeat laboratory studies in October 2018 continued to show elevated hemoglobin at 18.8 g with hematocrit 54%. The white blood cell count was 4500 and the platelet count was 210,000. The SGPT was slightly elevated at 64. The other liver enzymes were normal. The serum iron studies showed elevated transferrin saturation of 58%. The ferritin was 161 ng/mL. Given those findings, I opted to just continue with symptomatic management. Dr. Beltrán had seen him for a follow-up visit on 03/15/2020. He was having significant fatigue and he also complained of having episodes of pain in his right upper quadrant area. The pain was worse after eating, but it also had a positional component. His laboratory studies included CBC showing mildly elevated hemoglobin/hematocrit levels at 17.4 g and 51.5%. The red cell indices were normal. White blood cell count was normal at 5000 and platelet count was normal at 178,000. His sed rate was 0 and C-reactive protein was normal at 3.2 mg/L. Comprehensive metabolic profile showed normal renal function with BUN 16 and creatinine 0.8 mg/dL. Liver enzymes were slightly elevated with SGOT 43/40 and SGPT 67/41 U/L. Bilirubin and alkaline phosphatase were normal. The serum iron studies showed elevated transferrin saturation at 59.1% with ferritin mildly elevated at 512 ng/mL. B12 level was normal at 494 pg/mL and TSH was normal at 1.66 ???IU/mL With his transferrin saturation and ferritin both elevated, I did opt to phlebotomize him. Subsequent to that visit, he had seen Dr. Vincent in regard to his right upper quadrant abdominal pain. Gallbladder ultrasound showed mild hepatomegaly. It was otherwise unrevealing. A nuclear medicine hepatobiliary scan showed no evidence of acute or chronic cholecystitis. The gallbladder ejection fraction was within normal limits at 95%. He was given a prescription for pantoprazole 40 mg daily. During follow-up he continued to have significant pain in the right upper quadrant area, and on 05/01/2021 he underwent laparoscopic cholecystectomy. Grossly there did appear to be chronic inflammation around the cystic duct. The most significant finding was that the liver had a nodular appearance, consistent with cirrhosis. Liver biopsy did confirm liver cirrhosis. Iron stains were focally positive. Also noted was grade 4 steatosis. The gallbladder showed cholelithiasis with chronic cholecystitis and cholesterolosis. There was no evidence of malignancy. Patient presents today for follow-up. His last phlebotomy was 1 month ago. He states he cannot tell any difference after phlebotomy. He continues to have extreme fatigue. 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 His appetite has been good. He denies fever, chills, night sweats. He has occasional shortness of breath but no wheezing, cough or chest pain. No nausea or vomiting no diarrhea or constipation. He has abdominal pain which feels like pressure on and off. He has had a paracentesis in the past but is currently on diuretics to help control symptoms. He denies joint or bone pain. No muscle weakness. No headaches or dizziness. He has an appointment with textile colorist formulator on August 22, 2021 Review Of Symptoms:See above. Past Medical History: Hereditary hemochromatosis Past Surgical History: Laparoscopic cholecystectomy with liver biopsy in 2020 EGD and colonoscopy in 2019 Allergies: No Known Allergies. Medications: Hydrocodone-Acetaminophen 1 (10-325 mg) Tablet Oral q 4 hours PRN Lasix 1 Tablet (of 40 mg) Oral daily Spironolactone 1 Tablet (of 50 mg) Oral daily Family History: His father had lymphoma and of complications from his treatment. His mother has scleroderma and pulmonary hypertension. 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 Mr. Blanc has never smoked. He is a former drinker. Mr. Blanc reports the following support systems: lives alone, lives in own house, and adequate transportation available for expected visits. His diet consists of regular meals. He indicates his activity level as: daily activities. He is a non-smoker. He had some alcohol use in the past, but not heavy. He had quit drinking prior to my initial visit with him in 2009. Physical Examination: Performed on Jul 23, 2021 13:37: Height - 68.00 in, Weight - 206.2 lbs (LOW), BSA - 2.07 sq.m, BMI - 31.35 (HIGH), Temperature - 97.0 F (LOW), Pulse - 81 /min, Respiration - 16 /min, BP - 131/79 mm(hg), O2 Sat - 97 %, Pain - 0, and Fatigue - 9. Performance Status: 2 - Ambulatory/capable of all self-care, unable to perform any work activities. Up and about more than 50% of waking hours. (ECOG) Constitutional Alert, cooperative, oriented. Mood and affect appropriate. Appears close to chronological age. Well nourished. Well developed. Head Normocephalic; no scars. Eyes Conjunctivae and sclerae are clear and without icterus. Pupils are reactive and equal. Respiratory Lungs are clear to auscultation without rhonchi or wheezing. Cardiovascular Regular rate and rhythm of heart without murmurs, gallops or rubs. Abdomen Non-tender, non-distended, no masses, ascites or hepatosplenomegaly. Good bowel sounds. No guarding or rebound tenderness. Extremities No visible deformities, no cyanosis, clubbing or edema. Pulses 3+ and equal bilaterally. Musculoskeletal No tenderness or swelling, normal range of motion without obvious weakness. Psychiatric Alert and oriented times three. Coherent speech. Verbalizes understanding of our discussions today. Laboratory: Test performed on Jul 23, 2021 12:50 TSH 1.28 uIU/mL Vitamin B12 394 pg/mL Test performed on Jul 23, 2021 12:40 Ferritin 113 ng/mL Iron 142 mcg/dL Sodium 139 mmol/L Iron Binding Capacity (TIBC) 329 mcg/dl Potassium 4.3 mmol/L % Iron Saturation 43.1 % Chloride 104 mmol/L CO2 24 mmol/L UIBC 187 mcg/dL Anion Gap 15.3 BUN 17 mg/dL Creatinine 0.7 mg/dL Cr Clearance (Est) 170.7300 mL/min eGFR 120.4 mL/min Glucose 125 mg/dL Osmolality - Calculated 291 mOsm/kg Calcium 9.6 mg/dL Protein, Total 7.9 g/dL Albumin 4.6 g/dL Globulin 3.3 g/dL Bilirubin, Total 0.6 mg/dL ALT (SGPT) 45 U/L AST (SGOT) 41 U/L Alkaline Phosphatase 80 IU/L WBC 4.5 10 3/uL RBC 5.35 10 6/uL HGB 17.1 g/dL HCT 50.4 % MCV 94.2 fl MCH 32.0 pg MCHC 33.9 g/dL RDW 11.9 % Platelet Count 197 10 3/cmm MPV 11.3 fL Neutrophils 2.74 10 3/uL Lymphocytes 1.4 10 3/uL Monocytes 0.3 10 3/uL Eosinophils 0.1 10 3/uL Basophils 0.0 10 3/uL Neutrophil % 60.5 % Lymphocyte % 30.8 % Monocyte % 5.5 % Eosinophil % 2.6 % Basophils % 0.4 % NRBC % 0 % Test performed on May 21, 2021 14:04 Ammonia 21 umol/L PT 16.00 SECONDS INR 1.25 Test performed on May 21, 2021 11:35 Lipase 26 U/L Impression: 1. Hereditary hemochromatosis. It is uncertain to what extent there may be associated iron overload. 2. He has complained of severe chronic fatigue and generalized musculoskeletal pain. I have never able to determine a specific cause for it. 3. He also has complained of chronic/persistent abdominal pain in the right upper quadrant area. He was found to have evidence of liver cirrhosis at laparoscopic cholecystectomy on 05/01/2021. Plan: 1. Patient with hereditary hemochromatosis, presenting with moderately elevated serum ferritin. His HFE gene analysis showed double heterozygosity for the S65C and the H63D mutations, but that pattern has not been reported to be associated with iron overload. His liver biopsy in July 2010 showed marked steatosis, grade 3-4/4, but just grade 1/4 iron deposition. There was mild collagen fibrosis at that time.. Dr. Beltrán had initially opted to follow him on observation, as there was no convincing evidence of associated iron overload. As of August 2016 his ferritin level had increased to over 1000 ng/mL with his sedimentation rate remaining low. At that point Dr. Beltrán did opt to have him start phlebotomies. During subsequent follow-up his iron studies had been somewhat variable, but his most common pattern was a mild to moderately elevated serum ferritin with normal transferrin saturation. With those findings, Dr. Beltrán had opted to continue expectant management. During that time he continued to have chronic right upper quadrant abdominal pain. He ultimately underwent laparoscopic cholecystectomy on 05/01/2021. The gallbladder did show cholelithiasis with chronic cholecystitis. The most significant finding was that the liver had a nodular appearance, and liver biopsy did show evidence of cirrhosis. There was again noted to be grade 4 steatosis. The iron stains were just focally positive. Given the biopsy findings, still uncertain to what extent the cirrhosis may be due to iron overload versus nonalcoholic steatohepatitis. We suspect it is more likely the latter. In any case, he has developed ascites following the gallbladder surgery/liver biopsy. Dr. Beltrán set him up for ultrasound-guided paracentesis and referral to a textile colorist formulator. He is currently taking lasix and spironolactone to control edema/ascites. He has an appointment with textile colorist formulator on August 22 in [place]. 2. He has complained of severe chronic fatigue and generalized musculoskeletal pain. A specific cause has not been determined. He is currently being managed with oxycodone.A vitamin B12 and TSH were added to lab. TSH was normal. His vitamin B12 level was on the low side of normal. An MMA and homocystine levels have been ordered to be drawn at next blood draw. 3. Labs were reviewed with patient. Would like ferritin to be around 50. Ferritin today is 113 and hematocrit is at 50.4. It was recommended that he have another phlebotomy today but patient would rather wait until after his appointment with textile colorist formulator. We will schedule follow-up in 6 weeks with CBC, CMP and iron studies. Signed By: Annemarie Nguyen N.P. <<Signature on File>>
== END 2021-07-23 12:01 | disposition home or self-care (01) ==
PROVIDERS: Visit Provider Nurse Practitioner Family
DX: E83.110 Hereditary hemochromatosis (principal); Z79.899 Other long term (current) drug therapy
CPT/HCPCS: 36415; 80053; 82607; 82728; 83540; 83550; 84443; 85025; 99214

== ENCOUNTER 2021-10-07 13:04 | Oncology outpatient (recurring) (ONCR) | payer OTHER, SELFPAY | END 2021-10-15 23:59 | disposition home or self-care (01) | PROVIDERS: Visit Provider Internal Medicine Medical Oncology | DX: E83.110 Hereditary hemochromatosis (principal); R53.82 Chronic fatigue, unspecified; R52 Pain, unspecified; Z79.899 Other long term (current) drug therapy | CPT/HCPCS: 80053; 82728; 83090; 83540; 83550; 83921; 85025 ==

== ENCOUNTER → 2021-12-23 12:37 | Outpatient (BNVA) | payer OTHER, SELFPAY | PROVIDERS: PCP Internal Medicine Medical Oncology; Referring Provider Internal Medicine Medical Oncology; Visit Provider Internal Medicine Pulmonary Disease | DX: R06.09 Other forms of dyspnea (principal); Z82.61 Family history of arthritis; M25.641 Stiffness of right hand, not elsewhere classified; M25.642 Stiffness of left hand, not elsewhere classified | CPT/HCPCS: 71046 ==

== ENCOUNTER 2021-12-24 12:37 | Oncology outpatient (recurring) (ONCR) | payer OTHER, SELFPAY ==
[2021-12-24 13:33] LABS: Basophils % 0.7 %; Eosinophils # 0.1 10^3/uL (0.0-0.8); Eosinophils % 2.6 %; Hematocrit 51.4 % (42.0-52.0); Hemoglobin 17.8 g/dL (11.7-16.6); Lymphocytes # 1.9 10^3/uL (0.8-4.8); Lymphocytes % 34.9 %; Mean Corpuscular HGB Conc 34.6 g/dL (30.0-36.0); Mean Corpuscular Hemoglobin 32.4 pg (28.0-34.0); Mean Corpuscular Volume 93.6 fl (80-94); Mean Platelet Volume 11.3 fL (7.4-10.4); Monocytes # 0.3 10^3/uL (0.2-0.9); Monocytes % 5.6 %; Neutrophils # 3.01 10^3/uL (1.8-7.7); Nucleated Red Blood Cells % 0 %; Platelet Count 192 10^3/cmm (130-400); Red Blood Count 5.49 10^6/uL (4.1-5.3); White Blood Count 5.4 10^3/uL (4.0-10.0)
[2021-12-24 13:52] LABS: Erythrocyte Sedimentation Rate 6 mm/hr (0-10)
[2021-12-24 14:01] LABS: Alanine Aminotransferase 66 U/L (0-41); Albumin Level 4.8 g/dL (3.5-5.2); Alkaline Phosphatase 76 IU/L (40-130); Anion Gap 13.3 (5-19); Aspartate Amino Transferase 51 U/L (0-40); Blood Urea Nitrogen 19 mg/dL (6-20); Calcium 9.6 mg/dL (8.5-10.5); Carbon Dioxide 27 mmol/L (22-29); Chloride 102 mmol/L (98-107); Ferritin 247 ng/mL (30-400); Globulin 2.8 g/dL (1.3-4.6); Glomerular Filtration Rate 119.9 mL/min (90-130); Glucose 96 mg/dL (65-115); Iron 177 ug/dL (59-158); Osmolality Calculated 288 mOsm/kg (285-295); Percent Saturation 60.2 % (20-50); Potassium 4.3 mmol/L (3.5-5.1); Sodium 138 mmol/L (136-145); Total Iron Binding Capacity 294 mcg/dl; Total Protein 7.6 g/dL (6.6-8.7); Unsaturated Iron Binding 117 ug/dL (112-347)
[2021-12-25 10:27] LABS: Alpha 1 Antitrypsin 151 mg/dL (83-199)
[2021-12-25 14:23] LABS: Cyclic Citrullinated Peptide <16 UNITS
[2021-12-25 16:52] LABS: Cat Dander (E1) Ige <0.10 kU/L; Cat Dander Class 0; Common Ragweed (Short) (W1) Ig <0.10 kU/L; Dog Dander (E5) Ige <0.10 kU/L; Dog Dander Class 0; Elm (T8) Ige <0.10 kU/L; Elm Class 0; English Plantain (W9) Ige <0.10 kU/L; English Plantain Class 0; Immunoglobulin E 23 kU/L (<OR=114); Lamb'S Quarters (Goose Foot) <0.10 kU/L; Lamb'S Quarters Class 0; Maple (Box Elder) (T1) Ige <0.10 kU/L; Maple Class 0; Oak (T7) Ige <0.10 kU/L; Oak Class 0; Ragweeed Class 0; Rough Marsh Elder (W16) Ige <0.10 kU/L; Rough Marsh Elder Class 0
[2021-12-26 12:36] LABS: Anti-Nuclear Antibody Pattern Nuclear, Speckled; Anti-Nuclear Antibody Screen POSITIVE (NEGATIVE); Anti-Nuclear Antibody Titer 1:40 titer
[2021-12-26 13:19] LABS: SCL 70 <1.0 NEG AI (<1.0 NEG)
[2021-12-26 18:04] LABS: Alternaria Alternata (M6) Ige <0.10 kU/L; Alternaria Class 0; Bermuda Class 0; Bermuda Grass (G2) Ige <0.10 kU/L; D. Farinae Class 0; Dermatophagoides Class 0; Dermatophagoides Farinae (D2) <0.10 kU/L; Dermatophagoides Pteronyssinus <0.10 kU/L; House Dust (Greer) (H1) Ige <0.10 kU/L; House Dust (Hollister- Stier) <0.10 kU/L; House Dust Class 0; Johnson Grass (G10) Ige <0.10 kU/L; Johnson Grass Cl 0; June Grass Class 0; June Grass(Kentucky Blue) (G8) <0.10 kU/L; Meadow Fescue (G4) Ige <0.10 kU/L; Meadow Fescue Class 0; Mucor Racemosus Class 0; Orchard Grass (Cocksfoot) (G3) <0.10 kU/L; Penicillium Class 0; Penicillium Notatum (M1) Ige <0.10 kU/L; Perennial Rye Grass (G5) Ige <0.10 kU/L; Perennial Rye Grass Class 0; Sweet Vernal Class 0; Sweet Vernal Grass (G1) Ige <0.10 kU/L; Timothy Grass (G6) Ige <0.10 kU/L; Timothy Grass Class 0
[2021-12-31 19:47] LABS: Aspergillus Fumigatus, Igg Ab, 14.3 mg/L (<=102)
[2023-02-10 16:38] LABS: SM/RNP Antibodies <1.0 NEG
== END 2022-01-15 23:59 | disposition home or self-care (01) ==
PROVIDERS: Internal Medicine Pulmonary Disease; PCP Internal Medicine Medical Oncology; Visit Provider Internal Medicine Medical Oncology
DX: E83.110 Hereditary hemochromatosis (principal); R06.09 Other forms of dyspnea; Z82.61 Family history of arthritis; M25.641 Stiffness of right hand, not elsewhere classified; M25.642 Stiffness of left hand, not elsewhere classified
CPT/HCPCS: 36415; 80053; 82103; 82728; 82785; 83540; 83550; 85025; 85651; 86003; 86038; 86140; 86200; 86235; 86431

== ENCOUNTER 2022-02-11 08:59 | Outpatient (CLI) | payer OTHER, BC, MEDICAID, SELFPAY ==
--- NOTE | 2022-02-11 09:30 | USCV_ITS ---
JayashreeWarrenmikevanessa Age: 51 Gender: M : 1970 Exam Date: 02/11/2022 09:17 Ordering Phys: Ryan Slater MD Technologist: Exam Location: [facility] [place] Indication: short of breath BP: 134 / 74 HR: 63 Rhythm: Sinus Technical Quality: Adequate MEASUREMENTS (Male / Female) Normal Values 2D ECHO LV Diastolic Diameter PLAX 4.0 cm 4.2 - 5.9 / 3.9 - 5.3 cm LV Systolic Diameter PLAX 2.8 cm IVS Diastolic Thickness 1.3 cm 0.6 - 1.0 / 0.6 - 0.9 cm IVS Systolic Thickness 1.8 cm LVPW Diastolic Thickness 1.4 cm 0.6 - 1.0 / 0.6 - 0.9 cm LVPW Systolic Thickness 1.4 cm LVOT Diameter 2.1 cm LV Ejection Fraction 2D Teich 56.8 % LV Ejection Fraction MOD 2C 44.1 % LV Ejection Fraction 2C AL 44.2 % LA Diameter 3.7 cm Aorta at Sinotubular Diameter 3.2 cm IVC Diameter 1.4 cm M-MODE Aortic Annulus Diameter 3.1 cm LA Ao Ratio MM 1.2 MV E Point Septal Separation 1.2 cm DOPPLER AV Peak Velocity 134.0 cm/s LVOT Peak Velocity 104.0 cm/s AV Area Cont Eq vti 2.5 cm squared AV Area Cont Eq pk 2.6 cm squared MV Area PHT 5.4 cm squared Mitral E to A Ratio 1.2 MV E' Velocity 45.0 cm/s Mitral E to MV E' Ratio 7.6 Mitral E to LV E' Lateral Ratio 6.1 Mitral E to LV E' Septal Ratio 10.0 TR Peak Velocity 162.3 cm/s TR Peak Gradient 10.5 mmHg TV Peak E Velocity 98.0 cm/s Right Atrial Pressure 3.0 mmHg Pulmonary Artery Systolic Pressu 13.5 mmHg RV Acceleration Time 0.1 s FINDINGS Left Ventricle Left ventricle is normal in size. LV systolic function is normal with EF of 55 to 60%. No regional wall motion abnormalities were seen. Diastolic function is normal Right Ventricle Normal in size and function Right Atrium Normal in size Left Atrium Normal in size Mitral Valve Structurally normal mitral valve. No significant stenosis or regurgitation Aortic Valve Structurally normal aortic valve. No significant stenosis or regurgitation Tricuspid Valve Trace tricuspid regurgitation. Insufficient TR jet to calculate RVSP Pulmonic Valve Not well-visualized Pericardium Normal Aorta Normal in sizen IVC Appears to be normal CONCLUSIONS LV systolic function is normal with EF 55 to 60%. Diastolic function is normal. Trace tricuspid regurgitation No comparison studies are available Karel Agrawal MD (Electronically Signed) Final Date: 19 February 2022 17:34 S
--- NOTE | 2022-02-11 13:20 | PFTS_ITS ---
Date of Study:02/11/22 Date of Dictation: MECHANICS: Forced vital capacity (FVC) is reduced. Forced expiratory volume in one second (FEV1) is reduced. FEV1/FVC is normal. FLOW VOLUME LOOP: Narrow with mild scooping. LUNG VOLUMES: Total lung capacity (TLC) is reduced. Residual volume (RV) is normal. DIFFUSING CAPACITY FOR CARBON MONOXIDE: Normal. INTERPRETATION: The postbronchodilator spirometry is consistent with moderate restriction. There is some postbronchodilator response. Lung volumes are consistent with mild restriction. Gas exchange (DLCO) is normal. MTDD
== END 2022-02-11 09:00 | disposition home or self-care (01) ==
PROVIDERS: Visit Provider Internal Medicine Pulmonary Disease
DX: R06.09 Other forms of dyspnea (principal); M25.641 Stiffness of right hand, not elsewhere classified; M25.642 Stiffness of left hand, not elsewhere classified; Z82.61 Family history of arthritis
CPT/HCPCS: 93306; 94060; 94618; 94726; 94729; J7611

== ENCOUNTER 2022-02-11 10:28 | Oncology outpatient (recurring) (ONCR) | payer OTHER, BC, MEDICAID, SELFPAY ==
[2022-02-11 10:51] LABS: Basophils % 0.5 %; Eosinophils # 0.2 10^3/uL (0.0-0.8); Eosinophils % 3.1 %; Hematocrit 52.6 % (42.0-52.0); Hemoglobin 18.3 g/dL (11.7-16.6); Lymphocytes # 3.3 10^3/uL (0.8-4.8); Lymphocytes % 43.7 %; Mean Corpuscular HGB Conc 34.8 g/dL (30.0-36.0); Mean Corpuscular Hemoglobin 31.9 pg (28.0-34.0); Mean Corpuscular Volume 91.8 fl (80-94); Monocytes # 0.4 10^3/uL (0.2-0.9); Monocytes % 5.6 %; Neutrophils # 3.52 10^3/uL (1.8-7.7); Nucleated Red Blood Cells % 0 %; Platelet Count 202 10^3/cmm (130-400); Red Blood Count 5.73 10^6/uL (4.1-5.3); Red Cell Distribution Width 11.7 % (12.1-15.1); White Blood Count 7.5 10^3/uL (4.0-10.0)
[2022-02-11 12:40] VITALS: BP 109/68; PULSE 74; RESP 18; TEMP 36.6; O2SAT 97
== END 2022-02-14 23:59 | disposition home or self-care (01) ==
PROVIDERS: Visit Provider Internal Medicine Medical Oncology
DX: E83.110 Hereditary hemochromatosis (principal); R06.09 Other forms of dyspnea; Z82.61 Family history of arthritis; M25.641 Stiffness of right hand, not elsewhere classified; M25.642 Stiffness of left hand, not elsewhere classified
CPT/HCPCS: 36415; 85025; 99195

== ENCOUNTER 2022-02-26 07:08 | Outpatient (CLI) | payer OTHER, BC, MEDICAID, SELFPAY ==
--- NOTE | 2022-02-26 07:00 | CT_ITS ---
WS: [id number] CT CHEST CT-HIGH RESOLUTION, NONCONTRAST. HISTORY: Interstitial lung disease. Short of breath with exertion. Technique: High-resolution chest CT is performed in inspiration, expiration, supine and prone dariela horne. All CT scans at [facility] use at least one of these dose optimization techniques: automated exposure control; mA and/or kV adjustment per patient size (includes targeted exams where dose is mat ched to clinical indication); or iterative reconstruction. DLP: 2757.19 mGy.cm COMPARISON: Chest radiograph 12/23/2021 Findings: Lungs are well-aerated. Subtle area of groundglass attenuation in the periphery of the LEFT lower lobe. This is slightly wedge-shaped on the high-resolution imaging. Nearly completely resolves with prone positioning. No additional solid, noncalcified mass. No mosaic attenuation or air trappin g. There is a benign granuloma RIGHT lower lobe. No honeycombing or bronchiectasis. No significant retic ular nodular thickening. Thoracic aorta and pulmonary arteries are normal size. Normal size heart. No pericardial or pleural effusions. No mediastinal or hilar adenopathy. Small hiatal hernia. Prior cholecystectomy. Hepatic steatosis. Negative adrenal glands. CT/CT chest wo con [id number] Impression: 1. No interstitial lung disease. No honeycombing or bronchiectasis. 2. Wedge-shaped area of groundglass attenuation in the LEFT lower lobe nearly completely resolves with prone positioning suggesting this is probably atelecta sis. 3. No adenopathy. 4. Benign RIGHT lower lobe granuloma.
== END 2022-02-26 07:09 | disposition home or self-care (01) ==
LOC: RAD 07:09
PROVIDERS: Visit Provider Internal Medicine Pulmonary Disease
DX: R06.00 Dyspnea, unspecified (principal); M25.641 Stiffness of right hand, not elsewhere classified; M25.642 Stiffness of left hand, not elsewhere classified; R76.8 Other specified abnormal immunological findings in serum
CPT/HCPCS: 71250

== ENCOUNTER 2022-02-26 08:30 | Outpatient (CLI) | payer OTHER, BC, MEDICAID, SELFPAY | END 2022-02-26 08:31 | disposition home or self-care (01) | LOC: SLEEP 03-03 10:12 | PROVIDERS: Visit Provider Internal Medicine Pulmonary Disease | DX: R40.0 Somnolence (principal); R06.09 Other forms of dyspnea | CPT/HCPCS: G0399 ==

== ENCOUNTER 2022-03-19 11:50 | Oncology outpatient (recurring) (ONCR) | payer OTHER, BC, MEDICAID, SELFPAY ==
[2022-03-19 12:54] LABS: Basophils # 0.1 10^3/uL (0.0-0.1); Basophils % 1.3 %; Eosinophils # 0.2 10^3/uL (0.0-0.8); Eosinophils % 4.5 %; Hematocrit 48.3 % (42.0-52.0); Hemoglobin 16.3 g/dL (11.7-16.6); Lymphocytes # 1.4 10^3/uL (0.8-4.8); Lymphocytes % 30.1 %; Mean Corpuscular HGB Conc 33.7 g/dL (30.0-36.0); Mean Corpuscular Hemoglobin 32.1 pg (28.0-34.0); Mean Corpuscular Volume 95.1 fl (80-94); Mean Platelet Volume 10.9 fL (7.4-10.4); Monocytes # 0.3 10^3/uL (0.2-0.9); Monocytes % 6.6 %; Neutrophils # 2.69 10^3/uL (1.8-7.7); Neutrophils % 57.3 %; Nucleated Red Blood Cells % 0 %; Platelet Count 190 10^3/cmm (130-400); Red Blood Count 5.08 10^6/uL (4.1-5.3); Red Cell Distribution Width 12.2 % (12.1-15.1); White Blood Count 4.7 10^3/uL (4.0-10.0)
[2022-03-19 13:09] LABS: Alanine Aminotransferase 41 U/L (0-41); Albumin Level 4.8 g/dL (3.5-5.2); Alkaline Phosphatase 72 U/L (40-130); Anion Gap 13.2 (5-19); Aspartate Amino Transferase 29 U/L (0-40); Blood Urea Nitrogen 16 mg/dL (6-20); Calcium 9.4 mg/dL (8.5-10.5); Carbon Dioxide 27 mmol/L (22-29); Chloride 103 mmol/L (98-107); Ferritin 188 ng/mL (30-400); Globulin 2.9 g/dL (1.3-4.6); Glomerular Filtration Rate 119.9 mL/min (90-130); Glucose 92 mg/dL (65-115); Iron 119 ug/dL (59-158); Osmolality Calculated 289 mOsm/kg (285-295); Percent Saturation 41.6 % (20-50); Potassium 4.2 mmol/L (3.5-5.1); Sodium 139 mmol/L (136-145); Total Bilirubin 0.7 mg/dL (0.15-1.2); Total Iron Binding Capacity 286 mcg/dl; Total Protein 7.7 g/dL (6.6-8.7); Unsaturated Iron Binding 167 ug/dL (112-347)
[2022-03-19 14:36] VITALS: BP 97/64; PULSE 74; RESP 18; TEMP 36.2; O2SAT 98
== END 2022-04-16 23:59 | disposition home or self-care (01) ==
PROVIDERS: Visit Provider Internal Medicine Medical Oncology
DX: E83.110 Hereditary hemochromatosis (principal); K80.10 Calculus of gallbladder with chronic cholecystitis without obstruction; K76.0 Fatty (change of) liver, not elsewhere classified; Z79.899 Other long term (current) drug therapy
CPT/HCPCS: 36415; 80053; 82728; 83540; 83550; 85025; 99195

== ENCOUNTER 2022-05-01 07:41 | Outpatient (CLI) | payer BC, MEDICAID, SELFPAY ==
[2022-05-01 08:00] VITALS: BMI 30.4
--- NOTE | 2022-05-01 08:00 | ECG_ITS ---
[facility] Test Date: 2022-05-01 Pat Name: Henry Blanc Department: Room: Gender: Male Chronometer Assembler: Deena Miles : 1970 Requested By: Ryan Doe Order Number: [id number] Marni MD: Brittany Russell M.D. Interpretive Statements NAME OF STUDY: LEXISCAN SESTAMIBI STRESS TEST INDICATION: Shortness of Breath PROCEDURE: At the baseline, the blood pressure was 121/74 mmHg with a heart rate of 69 bpm. The electrocardiogram showed sinus rhythm with normal axis with normal ST and T's. The Lexiscan was infused over a period of 20 seconds. A total of 0.4 milligrams of Lexiscan was infused. The stress phase was continued for a total of 5 minutes. Heart rate at the end of the stress phase was 89 bpm with a blood pressure of 106/56 mmHg. The EKG at the peak infusion revealed sinus rhythm with no significant ST-T wave changes. The study was terminated due to protocol completion. Sestamibi was injected 20 seconds after the Lexiscan infusion. Blood pressure at the end of the recovery phase was 106/48 mmHg with a heart rate of 84 beats per minute. CONCLUSION: 1. No significant EKG changes with the LexiScan infusion. 2. No LexiScan induced chest pain or cardiac arrhythmia. 3. Normal blood pressure and heart rate response. 4. Sestamibi/sestamibi perfusion scan pending; see separate report. Electronically Signed On 05-01-2022 15:38:48 SHOP MANAGER by Brittany Russell M.D. [email or web address]
--- NOTE | 2022-05-01 08:01 | NMCV_ITS ---
NM shahla perf SPECT r/s* [id number] JayashreeHenry Age: 51 Gender: M : 1970 Exam Date: 05/01/2022 08:01 Ordering Phys: Ryan Slater MD Technologist: MIKEY Galaviz Exam Location: [facility] Indications: SHORTNESS OF BREATH, CHEST PAIN STRESS TEST Please see separate stress test report in [facility] for full findings IMAGE PROTOCOL Rest/Stress 1 Lexiscan Day Radiopharmaceutical Dose (mCi) Administration Site Administered by Rest: Tc-99m 10.6 IV MIKEY Decker Sestamibi Stress:Tc-99m 32.5 IV MIKEY Decker Sestamibi Rest: 01-May-2022 60 Discovery 630 Stress: 01-May-2022 30 Discovery 630 0.4mg Lexiscan. Images obtained in supine and prone position. SPECT RESULTS Technical Quality: Excellent Raw Data Analysis: Normal Image Corrections: No attenuation or motion correction applied Summed Stress Score: 0 Summed Rest Score: 2 Summed Difference Score: 0 PERFUSION FINDINGS SPECT images demonstrate homogeneous tracer distribution throughout the myocardium. FUNCTIONAL RESULTS (calculated via Gated SPECT) Stress Image LV EF (%): 72 Stress EDV (mL):92 TID: 1.06 Stress ESV (mL):26 FUNCTIONAL FINDINGS: The left ventricle is normal in size. Transient Ischemia Dilatation of 1.1. There is normal left ventricular systolic function. The left ventricular ejection fraction is normal with a value of 72%. There is normal left ventricular wall thickening. IMPRESSIONS 1. Myocardial perfusion imaging is normal. 2. Overall left ventricular systolic function is normal without regional wall motion abnormalities, LVEF=72%. 3. EKG portion of the study will be reported separately. 4. Scan indicates low risk for cardiac events. Brittany Russell MD (Electronically Signed) Final Date: 01 May 2022 15:34 S
[2022-05-01] MEDS: regadenoson 0.4 Mg/5 ml Syringe IVP (09:55)
[2022-05-01 10:18] VITALS: BP 106/48; PULSE 86
== END 2022-05-01 07:42 | disposition home or self-care (01) ==
LOC: CDL 07:42
PROVIDERS: PCP Internal Medicine Medical Oncology; Visit Provider Internal Medicine Pulmonary Disease
DX: R06.02 Shortness of breath (principal); R07.9 Chest pain, unspecified
CPT/HCPCS: 36415; 78452; 93017; 96374; A9500; J2785

== ENCOUNTER → 2022-05-13 14:49 | Outpatient (BNVA) | payer BC, MEDICAID, SELFPAY | PROVIDERS: PCP Internal Medicine Medical Oncology; Visit Provider Orthopaedic Surgery | DX: M54.50 Low back pain, unspecified (principal); M79.604 Pain in right leg; M79.605 Pain in left leg; M47.816 Spondylosis without myelopathy or radiculopathy, lumbar region | CPT/HCPCS: 72110 ==

== ENCOUNTER 2022-06-05 12:42 | Oncology outpatient (recurring) (ONCR) | payer BC, MEDICAID, SELFPAY ==
[2022-06-05 13:11] LABS: Basophils % 0.6 %; Eosinophils # 0.1 10^3/uL (0.0-0.8); Eosinophils % 2.3 %; Hematocrit 54.3 % (42.0-52.0); Hemoglobin 18.1 g/dL (11.7-16.6); Lymphocytes # 1.5 10^3/uL (0.8-4.8); Lymphocytes % 29.2 %; Mean Corpuscular HGB Conc 33.3 g/dL (30.0-36.0); Mean Corpuscular Hemoglobin 31.3 pg (28.0-34.0); Mean Corpuscular Volume 93.8 fl (80-94); Mean Platelet Volume 10.7 fL (7.4-10.4); Monocytes # 0.3 10^3/uL (0.2-0.9); Monocytes % 4.8 %; Neutrophils # 3.27 10^3/uL (1.8-7.7); Neutrophils % 62.9 %; Nucleated Red Blood Cells % 0 %; Platelet Count 190 10^3/cmm (130-400); Red Blood Count 5.79 10^6/uL (4.1-5.3); Red Cell Distribution Width 11.9 % (12.1-15.1); White Blood Count 5.2 10^3/uL (4.0-10.0)
[2022-06-05 13:36] LABS: Alanine Aminotransferase 40 U/L (0-41); Albumin Level 4.6 g/dL (3.5-5.2); Alkaline Phosphatase 79 U/L (40-130); Anion Gap 12.9 (5-19); Aspartate Amino Transferase 30 U/L (0-40); Blood Urea Nitrogen 17 mg/dL (6-20); Calcium 9.7 mg/dL (8.5-10.5); Carbon Dioxide 30 mmol/L (22-29); Chloride 102 mmol/L (98-107); Ferritin 152 ng/mL (30-400); Globulin 3.4 g/dL (1.3-4.6); Glomerular Filtration Rate 102.7 mL/min (90-130); Glucose 128 mg/dL (65-115); Iron 164 ug/dL (59-158); Osmolality Calculated 295 mOsm/kg (285-295); Percent Saturation 54.3 % (20-50); Potassium 3.9 mmol/L (3.5-5.1); Sodium 141 mmol/L (136-145); Total Bilirubin 0.8 mg/dL (0.15-1.2); Total Iron Binding Capacity 302 mcg/dl; Unsaturated Iron Binding 138 ug/dL (112-347)
[2022-06-05 14:30] VITALS: BP 109/74; PULSE 65; RESP 18; TEMP 37; O2SAT 96
== END 2022-06-17 23:59 | disposition home or self-care (01) ==
LOC: ONCMED 12:44
PROVIDERS: PCP Internal Medicine Medical Oncology; Visit Provider Internal Medicine Medical Oncology
DX: E83.110 Hereditary hemochromatosis (principal)
CPT/HCPCS: 36415; 80053; 82728; 83540; 83550; 85025; 99195

== ENCOUNTER → 2022-06-23 11:39 | Outpatient (BNVA) | payer BC, MEDICAID, SELFPAY | PROVIDERS: PCP Internal Medicine Medical Oncology; Referring Provider Internal Medicine Pulmonary Disease; Visit Provider Internal Medicine | DX: E83.110 Hereditary hemochromatosis (principal); L40.9 Psoriasis, unspecified; M79.672 Pain in left foot | CPT/HCPCS: 36415; 72040; 72202; 73120; 73620; 82550; 82728; 83516; 83735; 84100; 84550; 85651; 86140; 86200; 86431; 86480; 86704; 86803; 86812; 87340 ==

== ENCOUNTER 2022-06-24 10:19 | Outpatient (CLI) | payer BC, MEDICAID, SELFPAY ==
--- NOTE | 2022-06-24 11:00 | MR_ITS ---
WS: [id number] MRI LUMBAR SPINE NONCONTRAST HISTORY: low back pain COMPARISON: None available. TECHNIQUE: Sagittal and axial multisequence imaging is submitted. Very mild straightening of the normal lumbar lordosis. Very mild disc desiccation without significant narrowing. No fractures or marrow edema. Conus terminates normally at L1. L1-L2: Normal. L2-L3: Mild thecal sac. No high-grade stenosis. L3-L4: Mild narrowing of the thecal sac with mild ligamentum flavum and facet arthritis. There is mil d encroachment into the subarticular recesses and foramina. Mild to moderate bilateral foraminal sten osis. L4-L5: Mild annular disc bulging with ligamentum flavum and facet arthritis. There is a small central disc protrusion. Moderate central, bilateral subarticular recess and foraminal stenosis. There is en croachment upon the L4 and L5 nerve roots bilaterally. L5-S1: Mild disc bulge with a central disc protrusion. Mild encroachment into the RIGHT subarticular recess predominantly due to disc disease. There is only minimal foraminal narrowing. MR/MR lumbar spine wo con* [id number] IMPRESSION: 1. 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 2. Moderate central, bilateral subarticular recess and foraminal stenosis at L 4-5 with encroachment upon the L4 and L5 nerve roots. 3. Mild encroachment into the subarticular recesses and foramina at L4-5. Mild to moderate bilateral foraminal stenosis. 4. Central disc protrusion at L5-S1 with encroachment into the RIGHT subarticu lar recess. Very minimal contact on the RIGHT S1 nerve root. Mild foraminal iraj nosis, bilateral at L5-S1.
== END 2022-06-24 10:20 | disposition home or self-care (01) ==
LOC: RAD 10:21
PROVIDERS: PCP Internal Medicine Medical Oncology; Visit Provider Orthopaedic Surgery
DX: M47.816 Spondylosis without myelopathy or radiculopathy, lumbar region (principal); M51.36 Other intervertebral disc degeneration, lumbar region; M54.50 Low back pain, unspecified; M79.604 Pain in right leg; M79.605 Pain in left leg
CPT/HCPCS: 72148

== ENCOUNTER 2022-06-24 10:24 | Oncology outpatient (recurring) (ONCR) | payer BC, MEDICAID, SELFPAY ==
[2022-06-24 11:48] LABS: Basophils % 0.5 %; Eosinophils # 0.1 10^3/uL (0.0-0.8); Eosinophils % 2.3 %; Hematocrit 49.3 % (42.0-52.0); Hemoglobin 16.7 g/dL (11.7-16.6); Lymphocytes # 1.7 10^3/uL (0.8-4.8); Lymphocytes % 31.1 %; Mean Corpuscular HGB Conc 33.9 g/dL (30.0-36.0); Mean Corpuscular Hemoglobin 31.6 pg (28.0-34.0); Mean Corpuscular Volume 93.4 fl (80-94); Mean Platelet Volume 10.8 fL (7.4-10.4); Monocytes # 0.3 10^3/uL (0.2-0.9); Neutrophils # 3.41 10^3/uL (1.8-7.7); Neutrophils % 60.9 %; Nucleated Red Blood Cells % 0 %; Platelet Count 198 10^3/cmm (130-400); Red Blood Count 5.28 10^6/uL (4.1-5.3); Red Cell Distribution Width 12.3 % (12.1-15.1); White Blood Count 5.6 10^3/uL (4.0-10.0)
[2022-06-24 12:07] LABS: Alanine Aminotransferase 35 U/L (0-41); Albumin Level 4.3 g/dL (3.5-5.2); Aspartate Amino Transferase 30 U/L (0-40); Blood Urea Nitrogen 16 mg/dL (6-20); Calcium 8.7 mg/dL (8.5-10.5); Carbon Dioxide 27 mmol/L (22-29); Chloride 102 mmol/L (98-107); Ferritin 89 ng/mL (30-400); Glomerular Filtration Rate 119.9 mL/min (90-130); Glucose 96 mg/dL (65-115); Iron 103 ug/dL (59-158); Osmolality Calculated 289 mOsm/kg (285-295); Percent Saturation 34.3 % (20-50); Sodium 139 mmol/L (136-145); Total Bilirubin 0.7 mg/dL (0.15-1.2); Total Iron Binding Capacity 300 mcg/dl; Total Protein 7.2 g/dL (6.6-8.7); Unsaturated Iron Binding 197 ug/dL (112-347)
[2022-06-24 12:08] LABS: Alkaline Phosphatase 72 U/L (40-130); Globulin 2.9 g/dL (1.3-4.6)
[2022-06-24 12:40] VITALS: BP 120/73; PULSE 73; O2SAT 98
[2022-06-24 12:43] LABS: Anion Gap 14.3 (5-19); Potassium 4.3 mmol/L (3.5-5.1)
[2022-06-25 09:55] LABS: CENTROMERE B ANTIBODY <1.0 NEG AI (<1.0 NEG); JO-1 ANTIBODY <1.0 NEG AI (<1.0 NEG); RNP ANTIBODY <1.0 NEG AI (<1.0 NEG); SCL-70 ANTIBODY <1.0 NEG AI (<1.0 NEG); SJOGREN'S ANTIBODY (SS-A) <1.0 NEG AI (<1.0 NEG); SM ANTIBODY <1.0 NEG AI (<1.0 NEG); SS-B 1.2 POS AI (<1.0 NEG)
[2022-06-25 19:30] LABS: THYROID PEROXIDASE ANTIBODIES <1 IU/mL (<9)
[2022-06-27 13:50] LABS: COMPLEMENT COMPONENT C3C 157 mg/dL (82-185); COMPLEMENT COMPONENT C4C 20 mg/dL (15-53)
[2022-06-27 15:20] LABS: DNA AB (DS) CRITHIDIA,IFA NEGATIVE (NEGATIVE)
[2022-06-29 10:19] LABS: ANA PATTERN Cytoplasmic; ANA SCREEN, IFA POSITIVE (NEGATIVE); ANA TITER 1:40 titer; Anti-Nuclear AB Pattern #2 Nuclear, Homogeneous
== END 2022-07-15 23:59 | disposition home or self-care (01) ==
LOC: ONCMED 10:24
PROVIDERS: Internal Medicine; PCP Internal Medicine Medical Oncology; Visit Provider Internal Medicine Medical Oncology
DX: E83.110 Hereditary hemochromatosis (principal); Z79.899 Other long term (current) drug therapy
CPT/HCPCS: 36415; 80053; 82728; 83540; 83550; 85025; 86160; 86162; 86235; 86255; 86376; 99195

== ENCOUNTER 2022-07-22 11:17 | Oncology outpatient (recurring) (ONCR) | payer BC, MEDICAID, SELFPAY ==
[2022-07-22 12:11] LABS: Basophils % 0.6 %; Eosinophils # 0.1 10^3/uL (0.0-0.8); Eosinophils % 2.3 %; Hematocrit 49.2 % (42.0-52.0); Hemoglobin 16.6 g/dL (11.7-16.6); Lymphocytes # 1.4 10^3/uL (0.8-4.8); Lymphocytes % 30.4 %; Mean Corpuscular HGB Conc 33.7 g/dL (30.0-36.0); Mean Corpuscular Hemoglobin 31.5 pg (28.0-34.0); Mean Corpuscular Volume 93.4 fl (80-94); Mean Platelet Volume 11.1 fL (7.4-10.4); Monocytes # 0.2 10^3/uL (0.2-0.9); Monocytes % 4.9 %; Neutrophils # 2.89 10^3/uL (1.8-7.7); Neutrophils % 61.6 %; Nucleated Red Blood Cells % 0 %; Platelet Count 178 10^3/cmm (130-400); Red Blood Count 5.27 10^6/uL (4.1-5.3); Red Cell Distribution Width 12.2 % (12.1-15.1); White Blood Count 4.7 10^3/uL (4.0-10.0)
[2022-07-22 12:31] LABS: Alanine Aminotransferase 38 U/L (0-41); Albumin Level 4.8 g/dL (3.5-5.2); Alkaline Phosphatase 83 U/L (40-130); Anion Gap 14.3 (5-19); Aspartate Amino Transferase 34 U/L (0-40); Blood Urea Nitrogen 18 mg/dL (6-20); Calcium 9.1 mg/dL (8.5-10.5); Carbon Dioxide 26 mmol/L (22-29); Chloride 104 mmol/L (98-107); Ferritin 62 ng/mL (30-400); Globulin 2.9 g/dL (1.3-4.6); Glomerular Filtration Rate 119.9 mL/min (90-130); Glucose 116 mg/dL (65-115); Iron 92 ug/dL (59-158); Osmolality Calculated 293 mOsm/kg (285-295); Percent Saturation 28.5 % (20-50); Potassium 4.3 mmol/L (3.5-5.1); Sodium 140 mmol/L (136-145); Total Bilirubin 0.5 mg/dL (0.15-1.2); Total Iron Binding Capacity 322 mcg/dl; Total Protein 7.7 g/dL (6.6-8.7); Unsaturated Iron Binding 230 ug/dL (112-347)
== END 2022-08-15 23:59 | disposition home or self-care (01) ==
LOC: ONCMED 11:18
PROVIDERS: Nurse Practitioner Family; PCP Internal Medicine Medical Oncology; Visit Provider Internal Medicine Medical Oncology
DX: E83.110 Hereditary hemochromatosis (principal)
CPT/HCPCS: 36415; 80053; 82728; 83540; 83550; 85025; 99195

== ENCOUNTER → 2022-08-20 12:38 | Outpatient (BNVA) | payer BC, MEDICAID, SELFPAY | PROVIDERS: PCP Internal Medicine Medical Oncology; Visit Provider Internal Medicine | DX: R76.8 Other specified abnormal immunological findings in serum (principal); E83.110 Hereditary hemochromatosis; Z79.899 Other long term (current) drug therapy | CPT/HCPCS: 36415; 71046; 80053; 82550; 82728; 83540; 83550; 84182; 85025; 85651; 86140; 86235 ==

== ENCOUNTER 2022-10-20 10:48 | Oncology outpatient (recurring) (ONCR) | payer BC, MEDICAID, SELFPAY ==
[2022-10-20 11:03] VITALS: BP 126/72; PULSE 80; RESP 18; TEMP 36; O2SAT 98
[2022-10-20 11:09] LABS: Basophils % 0.7 %; Eosinophils # 0.2 10^3/uL (0.0-0.8); Eosinophils % 2.6 %; Hemoglobin 17.3 g/dL (11.7-16.6); Lymphocytes # 1.8 10^3/uL (0.8-4.8); Lymphocytes % 30.9 %; Mean Corpuscular HGB Conc 33.9 g/dL (30.0-36.0); Mean Corpuscular Hemoglobin 30.6 pg (28.0-34.0); Mean Corpuscular Volume 90.3 fl (80-94); Mean Platelet Volume 11.1 fL (7.4-10.4); Monocytes # 0.4 10^3/uL (0.2-0.9); Neutrophils # 3.35 10^3/uL (1.8-7.7); Neutrophils % 58.6 %; Nucleated Red Blood Cells % 0 %; Platelet Count 204 10^3/cmm (130-400); Red Blood Count 5.65 10^6/uL (4.1-5.3); Red Cell Distribution Width 12.6 % (12.1-15.1); White Blood Count 5.7 10^3/uL (4.0-10.0)
[2022-10-20 11:31] LABS: Alanine Aminotransferase 34 U/L (0-41); Albumin Level 4.6 g/dL (3.5-5.2); Alkaline Phosphatase 78 U/L (40-130); Aspartate Amino Transferase 35 U/L (0-40); Blood Urea Nitrogen 17 mg/dL (6-20); Calcium 8.8 mg/dL (8.5-10.5); Carbon Dioxide 25 mmol/L (22-29); Chloride 99 mmol/L (98-107); Ferritin 61 ng/mL (30-400); Globulin 2.8 g/dL (1.3-4.6); Glomerular Filtration Rate 102.7 mL/min (90-130); Glucose 98 mg/dL (65-115); Iron 122 ug/dL (59-158); Osmolality Calculated 280 mOsm/kg (285-295); Percent Saturation 36.2 % (20-50); Sodium 134 mmol/L (136-145); Total Bilirubin 0.5 mg/dL (0.15-1.2); Total Iron Binding Capacity 337 mcg/dl; Total Protein 7.4 g/dL (6.6-8.7); Unsaturated Iron Binding 215 ug/dL (112-347)
[2022-10-20 11:34] LABS: Anion Gap 14.2 (5-19); Potassium 4.2 mmol/L (3.5-5.1)
[2022-10-20 12:45] VITALS: BP 98/67; PULSE 66; RESP 18; TEMP 36.4; O2SAT 97
== END 2022-11-14 23:59 | disposition home or self-care (01) ==
PROVIDERS: PCP Internal Medicine Medical Oncology; Visit Provider Internal Medicine Medical Oncology
DX: E83.110 Hereditary hemochromatosis (principal)
CPT/HCPCS: 36415; 80053; 82728; 83540; 83550; 85025; 99195

== ENCOUNTER 2022-12-04 10:30 | Oncology outpatient (recurring) (ONCR) | payer BC, MEDICAID, SELFPAY ==
[2022-11-17 10:11] LABS: Basophils % 0.6 %; Eosinophils # 0.2 10^3/uL (0.0-0.8); Eosinophils % 2.8 %; Hematocrit 49.6 % (42.0-52.0); Hemoglobin 16.8 g/dL (11.7-16.6); Lymphocytes # 1.8 10^3/uL (0.8-4.8); Lymphocytes % 29.6 %; Mean Corpuscular HGB Conc 33.9 g/dL (30.0-36.0); Mean Corpuscular Hemoglobin 31.1 pg (28.0-34.0); Mean Corpuscular Volume 91.7 fl (80-94); Mean Platelet Volume 10.6 fL (7.4-10.4); Monocytes # 0.4 10^3/uL (0.2-0.9); Monocytes % 6.3 %; Neutrophils # 3.74 10^3/uL (1.8-7.7); Neutrophils % 60.5 %; Nucleated Red Blood Cells % 0 %; Platelet Count 205 10^3/cmm (130-400); Red Blood Count 5.41 10^6/uL (4.1-5.3); Red Cell Distribution Width 13.1 % (12.1-15.1); White Blood Count 6.2 10^3/uL (4.0-10.0)
[2022-11-17 10:15] VITALS: BP 138/85; PULSE 73; RESP 18; TEMP 36.3; O2SAT 97
[2022-11-17 10:43] VITALS: BP 112/78; PULSE 78; RESP 18; TEMP 36.3; O2SAT 98
[2022-12-04 10:39] VITALS: BP 122/78; PULSE 74; RESP 18; TEMP 36.4; O2SAT 99
[2022-12-04 10:50] LABS: Basophils # 0.1 10^3/uL (0.0-0.1); Basophils % 1.3 %; Eosinophils # 0.1 10^3/uL (0.0-0.8); Eosinophils % 3.3 %; Hematocrit 46.5 % (42.0-52.0); Hemoglobin 15.4 g/dL (11.7-16.6); Lymphocytes # 1.4 10^3/uL (0.8-4.8); Lymphocytes % 35.8 %; Mean Corpuscular HGB Conc 33.1 g/dL (30.0-36.0); Mean Corpuscular Volume 93.6 fl (80-94); Mean Platelet Volume 10.8 fL (7.4-10.4); Monocytes # 0.3 10^3/uL (0.2-0.9); Monocytes % 8.3 %; Neutrophils # 2.04 10^3/uL (1.8-7.7); Neutrophils % 51.3 %; Nucleated Red Blood Cells % 0 %; Platelet Count 191 10^3/cmm (130-400); Red Blood Count 4.97 10^6/uL (4.1-5.3); Red Cell Distribution Width 12.6 % (12.1-15.1)
[2022-12-04 11:16] LABS: Alanine Aminotransferase 35 U/L (0-41); Albumin Level 4.5 g/dL (3.5-5.2); Alkaline Phosphatase 79 U/L (40-130); Anion Gap 12.2 (5-19); Aspartate Amino Transferase 27 U/L (0-40); Blood Urea Nitrogen 16 mg/dL (6-20); Calcium 9.1 mg/dL (8.5-10.5); Carbon Dioxide 28 mmol/L (22-29); Chloride 104 mmol/L (98-107); Ferritin 22 ng/mL (30-400); Glomerular Filtration Rate 89.3 mL/min (90-130); Glucose 100 mg/dL (65-115); Iron 56 ug/dL (59-158); Osmolality Calculated 291 mOsm/kg (285-295); Percent Saturation 16.3 % (20-50); Potassium 4.2 mmol/L (3.5-5.1); Sodium 140 mmol/L (136-145); Total Bilirubin 0.5 mg/dL (0.15-1.2); Total Iron Binding Capacity 343 mcg/dl; Total Protein 7.5 g/dL (6.6-8.7); Unsaturated Iron Binding 287 ug/dL (112-347)
--- NOTE | 2022-12-04 16:10 | PC.NURSE ---
Dr May ordered to discontinue the iv access with no treatment today. IV site clear with no reddness or pain.mm
== END 2022-12-15 23:59 | disposition home or self-care (01) ==
PROVIDERS: Internal Medicine Medical Oncology; PCP Internal Medicine Medical Oncology; Visit Provider Internal Medicine Medical Oncology
DX: E83.110 Hereditary hemochromatosis (principal)
CPT/HCPCS: 80053; 82728; 83540; 83550; 85025; 99195

== ENCOUNTER 2022-12-23 06:59 | Outpatient (CLI) | payer BC, MEDICAID, SELFPAY ==
[2022-12-23 07:15] VITALS: BP 140/90
[2022-12-23 07:38] VITALS: PULSE 75; RESP 18; O2SAT 99
[2022-12-23] MEDS: albuterol 2.5 mg/3 mL Neb INHALATION (07:38)
[2022-12-23 07:43] VITALS: PULSE 78
== END 2022-12-23 07:00 | disposition home or self-care (01) ==
LOC: RT 07:00
PROVIDERS: PCP Internal Medicine Medical Oncology; Visit Provider Internal Medicine Pulmonary Disease
DX: R06.09 Other forms of dyspnea (principal)
CPT/HCPCS: 94060; 94618; 94726; 94729; J7613

== ENCOUNTER → 2023-01-02 11:10 | Outpatient (BNVA) | payer BC, MEDICAID, SELFPAY | PROVIDERS: PCP Internal Medicine Medical Oncology; Visit Provider Internal Medicine | DX: R76.8 Other specified abnormal immunological findings in serum (principal); M25.641 Stiffness of right hand, not elsewhere classified; M25.642 Stiffness of left hand, not elsewhere classified; Z82.61 Family history of arthritis; R06.09 Other forms of dyspnea; E83.110 Hereditary hemochromatosis | CPT/HCPCS: 36415; 80053; 81003; 82550; 85025; 85651; 86140 ==

== ENCOUNTER 2023-01-08 07:50 | Outpatient (CLI) | payer BC, MEDICAID, SELFPAY ==
--- NOTE | 2023-01-08 08:30 | CT_ITS ---
WS: [id number] HIGH RESOLUTION CHEST CT WITHOUT CONTRAST HISTORY: lung screening, worsening shortness of breath. TECHNIQUE: High-resolution protocol utilized. Supine inspiratory and expiratory high resolution lung imaging performed every 10 mm from the chest. Additional prone imaging with deep inspiration. DLP: 1327.[address] scans at [facility] use at least one of these dose optimization techniques: automated e xposure control; mA and/or kV adjustment per patient size (includes targeted exams where dose is matc hed to clinical indication); or iterative reconstruction. COMPARISON: 02/26/2022 Lungs are well aerated. No interstitial thickening or nodularity. No honeycombing or bronchiectasis. There is no interstitial thickening. On the expiration the lung volumes symmetrically decrease. There is no persistent atelectasis. Findings are similar to the prior examination. Benign calcified granul shyanne RIGHT lower lobe. No mediastinal or hilar adenopathy. Heart is normal size. Bilateral gynecomastia. Prior cholecystectomy. Mild hepatic steatosis. Normal adrenal glands. IMPRESSION: 1. No restrictive lung disease identified. 2. No honeycombing or bronchiectasis to suggest UIP. 3. Prior cholecystectomy. 4. Bilateral gynecomastia.
== END 2023-01-08 07:51 | disposition home or self-care (01) ==
PROVIDERS: PCP Internal Medicine Medical Oncology; Visit Provider Internal Medicine Pulmonary Disease
DX: J84.9 Interstitial pulmonary disease, unspecified (principal); R06.02 Shortness of breath; M47.816 Spondylosis without myelopathy or radiculopathy, lumbar region; M25.78 Osteophyte, vertebrae; N62 Hypertrophy of breast; Z90.49 Acquired absence of other specified parts of digestive tract; M48.062 Spinal stenosis, lumbar region with neurogenic claudication
CPT/HCPCS: 71250; 72110

== ENCOUNTER 2023-01-15 08:53 | Oncology outpatient (recurring) (ONCR) | payer BC, MEDICAID, SELFPAY ==
[2023-01-15 09:15] VITALS: BP 126/88; PULSE 59; RESP 16; TEMP 36.7; O2SAT 98
[2023-01-15 09:21] LABS: Basophils % 0.7 %; Eosinophils # 0.2 10^3/uL (0.0-0.8); Eosinophils % 3.1 %; Hematocrit 51.3 % (37-53); Lymphocytes # 1.7 10^3/uL (0.8-4.8); Lymphocytes % 28.3 %; Mean Corpuscular HGB Conc 33.9 g/dL (30-55); Mean Corpuscular Hemoglobin 30.5 pg (27-33); Mean Corpuscular Volume 89.8 fl (82-101); Mean Platelet Volume 10.5 fL (7.4-10.4); Monocytes # 0.4 10^3/uL (0.2-0.9); Neutrophils # 3.72 10^3/uL (1.8-7.7); Neutrophils % 60.6 %; Nucleated Red Blood Cells % 0 %; Platelet Count 220 10^3/cmm (157-399); Red Blood Count 5.71 10^6/uL (3.85-5.65); Red Cell Distribution Width 11.9 % (12.1-15.1); White Blood Count 6.14 10^3/uL (3.29-11.43)
[2023-01-15 09:38] LABS: Alanine Aminotransferase 52 U/L (0-41); Albumin Level 4.5 g/dL (3.5-5.2); Alkaline Phosphatase 102 U/L (40-130); Blood Urea Nitrogen 17 mg/dL (6-20); Calcium 9.1 mg/dL (8.5-10.5); Carbon Dioxide 29 mmol/L (22-29); Chloride 99 mmol/L (98-107); Ferritin 40 ng/mL (30-400); Globulin 3.3 g/dL (1.3-4.6); Glomerular Filtration Rate 89.3 mL/min (90-130); Glucose 114 mg/dL (65-115); Iron 69 ug/dL (59-158); Osmolality Calculated 288 mOsm/kg (285-295); Sodium 138 mmol/L (136-145); Total Bilirubin 0.4 mg/dL (0.15-1.2); Total Protein 7.8 g/dL (6.6-8.7)
[2023-01-15 09:39] LABS: Anion Gap 14.5 (5-19); Aspartate Amino Transferase 38 U/L (0-40); Percent Saturation 18.6 % (20-50); Potassium 4.5 mmol/L (3.5-5.1); Total Iron Binding Capacity 370 mcg/dl; Unsaturated Iron Binding 301 ug/dL (112-347)
[2023-01-15 10:25] VITALS: BP 115/76; PULSE 101; O2SAT 98
== END 2023-01-15 23:59 | disposition home or self-care (01) ==
LOC: ONCMED 08:53
PROVIDERS: PCP Internal Medicine Medical Oncology; Visit Provider Internal Medicine Medical Oncology
DX: E83.110 Hereditary hemochromatosis (principal)
CPT/HCPCS: 36415; 80053; 82728; 83540; 83550; 85025; 99195

== ENCOUNTER 2023-03-05 09:01 | Oncology outpatient (recurring) (ONCR) | payer MEDICAID, SELFPAY ==
[2023-03-05 09:50] VITALS: BP 130/80; PULSE 89; RESP 16; TEMP 36.8; O2SAT 98
[2023-03-05 09:59] LABS: Basophils % 0.7 %; Eosinophils # 0.2 10^3/uL (0.0-0.8); Hematocrit 49.6 % (37-53); Lymphocytes # 1.6 10^3/uL (0.8-4.8); Lymphocytes % 35.1 %; Mean Corpuscular HGB Conc 34.1 g/dL (30-55); Mean Corpuscular Hemoglobin 30.2 pg (27-33); Mean Corpuscular Volume 88.6 fl (82-101); Mean Platelet Volume 10.7 fL (7.4-10.4); Monocytes # 0.3 10^3/uL (0.2-0.9); Monocytes % 5.8 %; Neutrophils # 2.44 10^3/uL (1.8-7.7); Neutrophils % 54.2 %; Nucleated Red Blood Cells % 0 %; Platelet Count 213 10^3/cmm (157-399); Red Cell Distribution Width 12.1 % (12.1-15.1)
[2023-03-05 10:24] LABS: Alanine Aminotransferase 42 U/L (0-41); Albumin Level 4.4 g/dL (3.5-5.2); Alkaline Phosphatase 80 U/L (40-130); Anion Gap 12.3 (5-19); Aspartate Amino Transferase 33 U/L (0-40); Blood Urea Nitrogen 16 mg/dL (6-20); Calcium 9.5 mg/dL (8.5-10.5); Carbon Dioxide 28 mmol/L (22-29); Chloride 100 mmol/L (98-107); Ferritin 81 ng/mL (30-400); Globulin 3.6 g/dL (1.3-4.6); Glomerular Filtration Rate 102.3 mL/min (90-130); Glucose 91 mg/dL (65-115); Iron 77 ug/dL (59-158); Osmolality Calculated 283 mOsm/kg (285-295); Percent Saturation 23.4 % (20-50); Potassium 4.3 mmol/L (3.5-5.1); Sodium 136 mmol/L (136-145); Total Bilirubin 0.5 mg/dL (0.15-1.2); Total Iron Binding Capacity 328 mcg/dl; Unsaturated Iron Binding 251 ug/dL (112-347)
[2023-03-05 11:01] VITALS: BP 121/71; PULSE 77; RESP 16; TEMP 36.2; O2SAT 99
[2023-03-05 11:33] VITALS: BP 113/83; PULSE 96; RESP 18; TEMP 36.3; O2SAT 97
[2023-03-13 13:09] LABS: TPMT Activity 16
== END 2023-03-17 23:59 | disposition home or self-care (01) ==
PROVIDERS: Internal Medicine; PCP Internal Medicine Medical Oncology; Visit Provider Internal Medicine Medical Oncology
DX: E83.110 Hereditary hemochromatosis (principal); J98.4 Other disorders of lung; R40.0 Somnolence; M35.00 Sjogren syndrome, unspecified; Z79.899 Other long term (current) drug therapy
CPT/HCPCS: 36415; 80053; 82657; 82728; 83540; 83550; 85025; 99195; 99214

== ENCOUNTER 2023-04-16 07:25 | Oncology outpatient (recurring) (ONCR) | payer MEDICAID, SELFPAY ==
[2023-04-16 07:40] VITALS: BP 127/79; PULSE 69; RESP 16; TEMP 36.6; O2SAT 97
[2023-04-16 07:49] LABS: Basophils % 0.8 %; Eosinophils # 0.2 10^3/uL (0.0-0.8); Eosinophils % 3.1 %; Hematocrit 49.4 % (37-53); Lymphocytes # 1.5 10^3/uL (0.8-4.8); Lymphocytes % 29.6 %; Mean Corpuscular HGB Conc 33.4 g/dL (30-55); Mean Corpuscular Hemoglobin 30.4 pg (27-33); Mean Platelet Volume 10.8 fL (7.4-10.4); Monocytes # 0.4 10^3/uL (0.2-0.9); Monocytes % 6.9 %; Neutrophils # 3.09 10^3/uL (1.8-7.7); Neutrophils % 59.4 %; Nucleated Red Blood Cells % 0 %; Platelet Count 200 10^3/cmm (157-399); Red Blood Count 5.43 10^6/uL (3.85-5.65); Red Cell Distribution Width 12.8 % (12.1-15.1)
[2023-04-16 08:10] LABS: Ferritin 26 ng/mL (30-400); Iron 84 ug/dL (59-158); Percent Saturation 24.4 % (20-50); Total Iron Binding Capacity 343 mcg/dl; Unsaturated Iron Binding 259 ug/dL (112-347)
== END 2023-04-16 23:59 | disposition home or self-care (01) ==
PROVIDERS: PCP Internal Medicine Medical Oncology; Visit Provider Internal Medicine Medical Oncology
DX: E83.110 Hereditary hemochromatosis (principal)
CPT/HCPCS: 36415; 82728; 83540; 83550; 85025

== ENCOUNTER 2023-04-30 07:25 | Oncology outpatient (recurring) (ONCR) | payer MEDICAID, SELFPAY ==
[2023-04-30 07:40] VITALS: BP 131/76; PULSE 73; RESP 16; TEMP 36.4; O2SAT 98
[2023-04-30 07:49] LABS: Basophils % 0.6 %; Eosinophils # 0.2 10^3/uL (0.0-0.8); Eosinophils % 3.9 %; Hematocrit 47.7 % (37-53); Lymphocytes # 1.4 10^3/uL (0.8-4.8); Lymphocytes % 28.2 %; Mean Corpuscular HGB Conc 33.1 g/dL (30-55); Mean Corpuscular Hemoglobin 30.3 pg (27-33); Mean Corpuscular Volume 91.4 fl (82-101); Mean Platelet Volume 10.6 fL (7.4-10.4); Monocytes # 0.3 10^3/uL (0.2-0.9); Monocytes % 6.9 %; Neutrophils # 2.97 10^3/uL (1.8-7.7); Neutrophils % 60.2 %; Nucleated Red Blood Cells % 0 %; Platelet Count 168 10^3/cmm (157-399); Red Blood Count 5.22 10^6/uL (3.85-5.65); Red Cell Distribution Width 12.8 % (12.1-15.1); White Blood Count 4.93 10^3/uL (3.29-11.43)
[2023-04-30 08:10] LABS: Ferritin 27 ng/mL (30-400); Iron 53 ug/dL (59-158); Percent Saturation 16.6 % (20-50); Total Iron Binding Capacity 319 mcg/dl; Unsaturated Iron Binding 266 ug/dL (112-347)
--- NOTE | 2023-04-30 08:34 | PC.NURSE ---
Ferritin level of 27 on 04/30/23. Therapeutic phlebotomy not indicated per Dr. May.
== END 2023-05-17 23:59 | disposition home or self-care (01) ==
LOC: ONCMED 07:25
PROVIDERS: PCP Internal Medicine Medical Oncology; Visit Provider Internal Medicine Medical Oncology
DX: E83.110 Hereditary hemochromatosis (principal)
CPT/HCPCS: 36415; 82728; 83540; 83550; 85025

== ENCOUNTER 2023-06-04 09:18 | Oncology outpatient (recurring) (ONCR) | payer MEDICAID, SELFPAY ==
[2023-06-04 09:45] VITALS: BP 137/86; PULSE 68; RESP 16; TEMP 36.8; O2SAT 96
[2023-06-04 09:52] LABS: Basophils # 0.1 10^3/uL (0.0-0.1); Eosinophils # 0.2 10^3/uL (0.0-0.8); Eosinophils % 2.9 %; Lymphocytes # 1.6 10^3/uL (0.8-4.8); Lymphocytes % 30.6 %; Mean Corpuscular HGB Conc 34.2 g/dL (30-55); Mean Corpuscular Volume 87.5 fl (82-101); Mean Platelet Volume 10.2 fL (7.4-10.4); Monocytes # 0.3 10^3/uL (0.2-0.9); Monocytes % 5.6 %; Neutrophils % 59.7 %; Nucleated Red Blood Cells % 0 %; Platelet Count 181 10^3/cmm (157-399); Red Blood Count 5.94 10^6/uL (3.85-5.65); Red Cell Distribution Width 12.6 % (12.1-15.1); White Blood Count 5.19 10^3/uL (3.29-11.43)
[2023-06-04 10:16] LABS: Alanine Aminotransferase 41 U/L (0-41); Albumin Level 4.5 g/dL (3.5-5.2); Alkaline Phosphatase 67 U/L (40-130); Anion Gap 14.8 (5-19); Aspartate Amino Transferase 29 U/L (0-40); Blood Urea Nitrogen 20 mg/dL (6-20); Calcium 9.1 mg/dL (8.5-10.5); Carbon Dioxide 27 mmol/L (22-29); Chloride 102 mmol/L (98-107); Ferritin 48 ng/mL (30-400); Globulin 3.3 g/dL (1.3-4.6); Glomerular Filtration Rate 102.3 mL/min (90-130); Glucose 128 mg/dL (65-115); Iron 158 ug/dL (59-158); Osmolality Calculated 294 mOsm/kg (285-295); Percent Saturation 53.1 % (20-50); Potassium 3.8 mmol/L (3.5-5.1); Sodium 140 mmol/L (136-145); Total Bilirubin 0.6 mg/dL (0.15-1.2); Total Iron Binding Capacity 297 mcg/dl; Total Protein 7.8 g/dL (6.6-8.7); Unsaturated Iron Binding 139 ug/dL (112-347)
== END 2023-06-17 23:59 | disposition home or self-care (01) ==
PROVIDERS: PCP Internal Medicine Medical Oncology; Visit Provider Internal Medicine Medical Oncology
DX: E83.110 Hereditary hemochromatosis (principal); R79.0 Abnormal level of blood mineral; R53.83 Other fatigue; Z79.899 Other long term (current) drug therapy
CPT/HCPCS: 36415; 80053; 82728; 83540; 83550; 85025; 99214

== ENCOUNTER 2023-07-02 07:55 | Oncology outpatient (recurring) (ONCR) | payer MEDICAID, SELFPAY ==
[2023-07-02 08:22] LABS: Basophils % 0.8 %; Eosinophils # 0.2 10^3/uL (0.0-0.8); Eosinophils % 3.1 %; Hematocrit 53.4 % (37-53); Lymphocytes # 1.6 10^3/uL (0.8-4.8); Mean Corpuscular HGB Conc 34.5 g/dL (30-55); Mean Corpuscular Hemoglobin 30.8 pg (27-33); Mean Corpuscular Volume 89.3 fl (82-101); Mean Platelet Volume 10.5 fL (7.4-10.4); Monocytes # 0.4 10^3/uL (0.2-0.9); Monocytes % 7.5 %; Neutrophils % 54.4 %; Nucleated Red Blood Cells % 0 %; Platelet Count 199 10^3/cmm (157-399); Red Blood Count 5.98 10^6/uL (3.85-5.65); Red Cell Distribution Width 12.9 % (12.1-15.1); White Blood Count 4.79 10^3/uL (3.29-11.43)
[2023-07-02 08:44] LABS: Alanine Aminotransferase 40 U/L (0-41); Albumin Level 4.5 g/dL (3.5-5.2); Alkaline Phosphatase 69 U/L (40-130); Anion Gap 13.8 (5-19); Aspartate Amino Transferase 27 U/L (0-40); Blood Urea Nitrogen 18 mg/dL (6-20); Calcium 9.1 mg/dL (8.5-10.5); Carbon Dioxide 28 mmol/L (22-29); Chloride 100 mmol/L (98-107); Ferritin 73 ng/mL (30-400); Globulin 3.2 g/dL (1.3-4.6); Glomerular Filtration Rate 89.3 mL/min (90-130); Glucose 102 mg/dL (65-115); Iron 174 ug/dL (59-158); Osmolality Calculated 288 mOsm/kg (285-295); Percent Saturation 59.7 % (20-50); Potassium 3.8 mmol/L (3.5-5.1); Sodium 138 mmol/L (136-145); Total Bilirubin 0.8 mg/dL (0.15-1.2); Total Iron Binding Capacity 291 mcg/dl; Total Protein 7.7 g/dL (6.6-8.7); Unsaturated Iron Binding 117 ug/dL (112-347)
[2023-07-02 09:03] VITALS: BP 113/75; PULSE 66; RESP 14; TEMP 36.5; O2SAT 98
[2023-07-02 10:08] VITALS: BP 112/70; PULSE 67; RESP 16; TEMP 36.6; O2SAT 96
[2023-07-03 16:29] LABS: Beef (27) IgE <0.10 kU/L; Beef Class 0; Lamb (F88) IgE <0.10 kU/L; Lamb Class 0; Pork (F26) IgE <0.10 kU/L; Pork Class 0
[2023-07-04 18:30] LABS: Galactose-alpha-1,3 IgE 0.12 kU/L (<0.10)
== END 2023-07-16 23:59 | disposition home or self-care (01) ==
LOC: ONCMED 07:55
PROVIDERS: PCP Internal Medicine Medical Oncology; Visit Provider Internal Medicine Medical Oncology
DX: E83.110 Hereditary hemochromatosis (principal); R53.83 Other fatigue; R10.9 Unspecified abdominal pain
CPT/HCPCS: 36415; 80053; 82728; 83540; 83550; 85025; 86003; 86008; 99195

== ENCOUNTER 2023-08-21 09:16 | Oncology outpatient (recurring) (ONCR) | payer MEDICARE, MEDICAID, SELFPAY ==
[2023-08-21 09:55] LABS: Basophils % 0.7 %; Eosinophils # 0.1 10^3/uL (0.0-0.8); Eosinophils % 3.2 %; Hematocrit 49.3 % (37-53); Lymphocytes # 1.5 10^3/uL (0.8-4.8); Lymphocytes % 32.9 %; Mean Corpuscular HGB Conc 34.7 g/dL (30-55); Mean Corpuscular Hemoglobin 31.8 pg (27-33); Mean Corpuscular Volume 91.6 fl (82-101); Mean Platelet Volume 10.7 fL (7.4-10.4); Monocytes # 0.3 10^3/uL (0.2-0.9); Monocytes % 6.1 %; Neutrophils # 2.51 10^3/uL (1.8-7.7); Neutrophils % 56.9 %; Nucleated Red Blood Cells % 0 %; Platelet Count 174 10^3/cmm (157-399); Red Blood Count 5.38 10^6/uL (3.85-5.65); Red Cell Distribution Width 12.3 % (12.1-15.1); White Blood Count 4.41 10^3/uL (3.29-11.43)
[2023-08-21 10:12] LABS: Alanine Aminotransferase 29 U/L (0-41); Albumin Level 4.6 g/dL (3.5-5.2); Alkaline Phosphatase 64 U/L (40-130); Anion Gap 12.8 (5-19); Aspartate Amino Transferase 23 U/L (0-40); Blood Urea Nitrogen 19 mg/dL (6-20); Calcium 9.1 mg/dL (8.5-10.5); Carbon Dioxide 28 mmol/L (22-29); Chloride 103 mmol/L (98-107); Ferritin 67 ng/mL (30-400); Globulin 2.8 g/dL (1.3-4.6); Glomerular Filtration Rate 102.3 mL/min (90-130); Glucose 100 mg/dL (65-115); Iron 119 ug/dL (59-158); Osmolality Calculated 292 mOsm/kg (285-295); Percent Saturation 39.6 % (20-50); Potassium 3.8 mmol/L (3.5-5.1); Sodium 140 mmol/L (136-145); Total Bilirubin 0.6 mg/dL (0.15-1.2); Total Iron Binding Capacity 300 mcg/dl; Total Protein 7.4 g/dL (6.6-8.7); Unsaturated Iron Binding 181 ug/dL (112-347)
[2023-08-21 11:55] VITALS: BP 117/68; PULSE 71; RESP 16; TEMP 36.6; O2SAT 97
== END 2023-09-15 23:59 | disposition home or self-care (01) ==
PROVIDERS: PCP Internal Medicine Medical Oncology; Visit Provider Internal Medicine Medical Oncology
DX: E83.110 Hereditary hemochromatosis (principal)
CPT/HCPCS: 36415; 80053; 82728; 83540; 83550; 85025; 99195

== ENCOUNTER 2023-08-21 09:41 | Outpatient (CLI) | payer MEDICARE, MEDICAID, SELFPAY ==
[2023-08-21] MEDS: iohexol 300 mg/mL 100 mL Btl PO (09:55)
--- NOTE | 2023-08-21 11:00 | CT_ITS ---
WS: [id number] Examination: CT abdomen pelvis w con* [id number] Reason for Exam: abdominal pain and swelling Date: August 21, 2023 Comparison: May 04, 2021 DLP: 633.[address] scans at [facility] use at least one of these dose optimization techniques: automated e xposure control; mA and/or kV adjustment per patient size (includes targeted exams where dose is matc hed to clinical indication); or iterative reconstruction. Findings: The heart is not enlarged. There is no pleural effusion.. There our stable lymph nodes in the right p ericardial fat The liver is mildly prominent in size. There is hepatic steatosis. The gallbladder has been removed t he contour of the liver is mildly lobular. The liver parenchyma is inhomogenous. There is no biliary duct dilatation. The portal vein is patent. The spleen is enlarged. There is no adrenal mass. There are small lymph nodes identified adjacent to the caudate lobe of the liver. The kidneys are well-perfused. There is no stone or hydronephrosis. The pancreas is unremarkable. The aorta is normal in size. There is no small bowel obstruction. There is increased stool in the colon. The appendix is unremarka ble. There is no free fluid or free air Small scattered mesenteric lymph nodes are present. More prominent but similar-appearing gasper hepati s region nodes are present. IMPRESSION: Findings raise the possibility of cirrhosis and portal venous hypertension as above. The liver parenc hyma is inhomogenous and fatty infiltrated. Further evaluation with liver MR to exclude mass is recom mended. Numerous scattered mildly prominent lymph nodes are identified.
[2023-08-21] MEDS: iohexol 350 mg/mL 500 mL Btl (per mL) IV (11:05)
== END 2023-08-21 09:42 | disposition home or self-care (01) ==
LOC: RAD 09:42
PROVIDERS: PCP Internal Medicine Medical Oncology; Visit Provider Internal Medicine Medical Oncology
DX: R19.00 Intra-abdominal and pelvic swelling, mass and lump, unspecified site (principal)
CPT/HCPCS: 74177; Q9967

== ENCOUNTER 2023-09-10 08:23 | Outpatient (CLI) | payer MEDICARE, MEDICAID, SELFPAY ==
--- NOTE | 2023-09-10 08:45 | MRR_ITS ---
PROCEDURE INFORMATION: Exam: MR Abdomen Without Contrast Exam date and time: 09/10/2023 8:49 AM Age: 52 years old Clinical indication: Abnormal findings; Abnormal radiologic finding of the abdomen; Radiologic exam and body structure: CT abd/pel 08/21/23; Prior surgery; Surgery date: 6+ months; Surgery type: Cholecystectomy; Patient HX: Findings raise the possibility of cirrhosis and portal venous hypertension as above. The liver. Parenchyma is inhomogenous and fatty infiltrated. Further evaluation with liver MR to exclude mass. Is recommended. ; Additional info: Abnormal CT scan TECHNIQUE: Imaging protocol: Magnetic resonance imaging of the abdomen without contrast. COMPARISON: CT abdomen pelvis w con* [id number] 08/21/2023 11:01 AM FINDINGS: Liver: Diffuse hepatic steatosis. No mass. Gallbladder and bile ducts: Cholecystectomy. No ductal dilation. Pancreas: Unremarkable. No ductal dilation. Spleen: Unremarkable. No splenomegaly. Adrenal glands: Unremarkable. No mass. Kidneys and ureters: Unremarkable. No solid mass. No hydronephrosis. Stomach and bowel: Visualized stomach and intestines are unremarkable. Intraperitoneal space: No free fluid. Vasculature: No abdominal aortic aneurysm. Bones/joints: Unremarkable. Soft tissues: Unremarkable. MR/MR abdomen wo/w con* [id number] IMPRESSION: Hepatic steatosis. No mass.
[2023-09-10] MEDS: gadobenate dimeglumine 20 mL vial IV (09:10)
== END 2023-09-10 08:24 | disposition home or self-care (01) ==
LOC: RAD 08:23
PROVIDERS: PCP Internal Medicine Medical Oncology; Visit Provider Internal Medicine Medical Oncology
DX: R93.2 Abnormal findings on diagnostic imaging of liver and biliary tract (principal); K76.0 Fatty (change of) liver, not elsewhere classified; Z90.49 Acquired absence of other specified parts of digestive tract
CPT/HCPCS: 74183; A9577

== ENCOUNTER 2023-10-21 11:19 | Oncology outpatient (recurring) (ONCR) | payer MEDICARE, MEDICAID, SELFPAY ==
[2023-10-21 11:41] LABS: Basophils % 0.8 %; Eosinophils # 0.2 10^3/uL (0.0-0.8); Eosinophils % 4.5 %; Lymphocytes # 1.5 10^3/uL (0.8-4.8); Lymphocytes % 29.4 %; Mean Corpuscular HGB Conc 34.5 g/dL (30-55); Mean Corpuscular Hemoglobin 31.4 pg (27-33); Mean Corpuscular Volume 90.9 fl (82-101); Mean Platelet Volume 10.7 fL (7.4-10.4); Monocytes # 0.3 10^3/uL (0.2-0.9); Monocytes % 6.3 %; Neutrophils # 2.91 10^3/uL (1.8-7.7); Neutrophils % 58.8 %; Nucleated Red Blood Cells % 0 %; Platelet Count 193 10^3/cmm (157-399); Red Blood Count 5.61 10^6/uL (3.85-5.65); Red Cell Distribution Width 11.9 % (12.1-15.1); White Blood Count 4.94 10^3/uL (3.29-11.43)
[2023-10-21 12:03] LABS: Alanine Aminotransferase 36 U/L (0-41); Albumin Level 4.4 g/dL (3.5-5.2); Alkaline Phosphatase 73 U/L (40-130); Anion Gap 13.1 (5-19); Aspartate Amino Transferase 26 U/L (0-40); Blood Urea Nitrogen 13 mg/dL (6-20); Calcium 9.1 mg/dL (8.5-10.5); Carbon Dioxide 28 mmol/L (22-29); Chloride 103 mmol/L (98-107); Globulin 3.5 g/dL (1.3-4.6); Glomerular Filtration Rate 102.3 mL/min (90-130); Glucose 112 mg/dL (65-115); Osmolality Calculated 291 mOsm/kg (285-295); Potassium 4.1 mmol/L (3.5-5.1); Sodium 140 mmol/L (136-145); Total Bilirubin 0.6 mg/dL (0.15-1.2); Total Protein 7.9 g/dL (6.6-8.7)
[2023-10-21 14:42] LABS: Ferritin 47 ng/mL (30-400); Iron 103 ug/dL (59-158); Percent Saturation 31.2 % (20-50); Total Iron Binding Capacity 330 mcg/dl; Unsaturated Iron Binding 227 ug/dL (112-347)
[2023-10-21 16:02] VITALS: BP 118/74; PULSE 88; RESP 16; TEMP 36.4; O2SAT 98
== END 2023-11-15 23:59 | disposition home or self-care (01) ==
PROVIDERS: PCP Family Medicine; Visit Provider Internal Medicine Medical Oncology
DX: E83.110 Hereditary hemochromatosis (principal); Z53.9 Procedure and treatment not carried out, unspecified reason
CPT/HCPCS: 36415; 80053; 82728; 83540; 83550; 85025; 99195; 99214

== ENCOUNTER 2024-01-28 11:18 | Oncology outpatient (recurring) (ONCR) | payer MEDICARE, MEDICAID, SELFPAY ==
[2024-01-28 12:14] LABS: Basophils % 0.4 %; Eosinophils # 0.1 10^3/uL (0.0-0.8); Eosinophils % 2.4 %; Hematocrit 48.6 % (37-53); Lymphocytes # 1.5 10^3/uL (0.8-4.8); Lymphocytes % 32.6 %; Mean Corpuscular HGB Conc 34.6 g/dL (30-55); Mean Corpuscular Hemoglobin 31.1 pg (27-33); Mean Platelet Volume 10.6 fL (7.4-10.4); Monocytes # 0.3 10^3/uL (0.2-0.9); Monocytes % 7.3 %; Neutrophils # 2.57 10^3/uL (1.8-7.7); Neutrophils % 57.1 %; Nucleated Red Blood Cells % 0 %; Platelet Count 180 10^3/cmm (157-399); Red Cell Distribution Width 12.1 % (12.1-15.1); White Blood Count 4.51 10^3/uL (3.29-11.43)
[2024-01-28 12:34] LABS: Alanine Aminotransferase 34 U/L (0-41); Albumin Level 4.5 g/dL (3.5-5.2); Alkaline Phosphatase 62 U/L (40-130); Aspartate Amino Transferase 24 U/L (0-40); Blood Urea Nitrogen 16 mg/dL (6-20); Calcium 8.6 mg/dL (8.5-10.5); Carbon Dioxide 28 mmol/L (22-29); Chloride 103 mmol/L (98-107); Ferritin 61 ng/mL (30-400); Globulin 2.8 g/dL (1.3-4.6); Glomerular Filtration Rate 101.9 mL/min (90-130); Glucose 94 mg/dL (65-115); Iron 142 ug/dL (59-158); Osmolality Calculated 291 mOsm/kg (285-295); Sodium 140 mmol/L (136-145); Total Bilirubin 0.6 mg/dL (0.15-1.2); Total Iron Binding Capacity 302 mcg/dl; Total Protein 7.3 g/dL (6.6-8.7); Unsaturated Iron Binding 160 ug/dL (112-347)
[2024-01-28 13:09] LABS: Anion Gap 13.3 (5-19); Potassium 4.3 mmol/L (3.5-5.1)
== END 2024-02-15 23:59 | disposition home or self-care (01) ==
PROVIDERS: PCP Family Medicine; Visit Provider Internal Medicine Medical Oncology
DX: E83.110 Hereditary hemochromatosis (principal); R53.83 Other fatigue; R10.9 Unspecified abdominal pain
CPT/HCPCS: 36415; 80053; 82728; 83540; 83550; 85025; 99195; 99214

== ENCOUNTER 2024-05-02 11:32 | Oncology outpatient (recurring) (ONCR) | payer MEDICARE, MEDICAID, SELFPAY ==
[2024-05-02 11:54] LABS: Basophils % 0.6 %; Eosinophils # 0.1 10^3/uL (0.0-0.8); Eosinophils % 2.7 %; Lymphocytes # 1.4 10^3/uL (0.8-4.8); Lymphocytes % 28.5 %; Mean Corpuscular HGB Conc 34.6 g/dL (30-55); Mean Corpuscular Hemoglobin 31.5 pg (27-33); Mean Corpuscular Volume 91.1 fl (82-101); Mean Platelet Volume 10.7 fL (7.4-10.4); Monocytes # 0.3 10^3/uL (0.2-0.9); Neutrophils # 2.96 10^3/uL (1.8-7.7); Nucleated Red Blood Cells % 0 %; Platelet Count 171 10^3/cmm (157-399); Red Blood Count 5.27 10^6/uL (3.85-5.65); Red Cell Distribution Width 11.8 % (12.1-15.1); White Blood Count 4.85 10^3/uL (3.29-11.43)
[2024-05-02 12:16] LABS: Alanine Aminotransferase 31 U/L (0-41); Albumin Level 4.2 g/dL (3.5-5.2); Alkaline Phosphatase 67 U/L (40-130); Aspartate Amino Transferase 23 U/L (0-40); Blood Urea Nitrogen 21 mg/dL (6-20); Calcium 8.8 mg/dL (8.5-10.5); Carbon Dioxide 26 mmol/L (22-29); Chloride 103 mmol/L (98-107); Creatinine Clr Calc Pharmacy 109.9436; Ferritin 86 ng/mL (30-400); Globulin 2.8 g/dL (1.3-4.6); Glucose 98 mg/dL (65-115); Iron 111 ug/dL (59-158); Osmolality Calculated 293 mOsm/kg (285-295); Percent Saturation 39.5 % (20-50); Sodium 140 mmol/L (136-145); Total Bilirubin 0.6 mg/dL (0.15-1.2); Total Iron Binding Capacity 281 mcg/dl; Unsaturated Iron Binding 170 ug/dL (112-347)
[2024-05-02 12:27] LABS: Anion Gap 15.2 (5-19); Potassium 4.2 mmol/L (3.5-5.1)
[2024-05-02 13:55] VITALS: BP 114/72; PULSE 70; RESP 17; TEMP 36.6; O2SAT 97
== END 2024-05-17 23:59 | disposition home or self-care (01) ==
PROVIDERS: Nurse Practitioner Family; PCP Family Medicine; Visit Provider Internal Medicine Medical Oncology
DX: E83.110 Hereditary hemochromatosis (principal); Z79.899 Other long term (current) drug therapy
CPT/HCPCS: 36415; 80053; 82728; 83540; 83550; 85025; 99195; 99214

== ENCOUNTER 2024-08-29 11:51 | Oncology outpatient (recurring) (ONCR) | payer OTHER, SELFPAY ==
[2024-08-29 12:17] LABS: Basophils % 0.7 %; Eosinophils # 0.1 10^3/uL (0.0-0.8); Eosinophils % 2.6 %; Hematocrit 50.9 % (37-53); Lymphocytes # 1.4 10^3/uL (0.8-4.8); Lymphocytes % 32.2 %; Mean Corpuscular Hemoglobin 31.6 pg (27-33); Mean Corpuscular Volume 90.2 fl (82-101); Mean Platelet Volume 10.5 fL (7.4-10.4); Monocytes # 0.2 10^3/uL (0.2-0.9); Monocytes % 4.9 %; Neutrophils # 2.56 10^3/uL (1.8-7.7); Neutrophils % 59.6 %; Nucleated Red Blood Cells % 0 %; Platelet Count 184 10^3/cmm (157-399); Red Blood Count 5.64 10^6/uL (3.85-5.65); Red Cell Distribution Width 11.9 % (12.1-15.1); White Blood Count 4.29 10^3/uL (3.29-11.43)
[2024-08-29 12:34] LABS: Alanine Aminotransferase 34 U/L (0-41); Albumin Level 4.5 g/dL (3.5-5.2); Alkaline Phosphatase 64 U/L (40-130); Aspartate Amino Transferase 25 U/L (0-40); Blood Urea Nitrogen 16 mg/dL (6-20); Calcium 9.3 mg/dL (8.5-10.5); Carbon Dioxide 25 mmol/L (22-29); Chloride 102 mmol/L (98-107); Ferritin 105 ng/mL (30-400); Globulin 2.9 g/dL (1.3-4.6); Glomerular Filtration Rate 101.9 mL/min (90-130); Glucose 161 mg/dL (65-115); Iron 159 ug/dL (59-158); Osmolality Calculated 291 mOsm/kg (285-295); Percent Saturation 51.2 % (20-50); Sodium 138 mmol/L (136-145); Total Bilirubin 0.8 mg/dL (0.15-1.2); Total Iron Binding Capacity 310 mcg/dl; Total Protein 7.4 g/dL (6.6-8.7); Unsaturated Iron Binding 151 ug/dL (112-347)
== END 2024-09-14 23:59 | disposition home or self-care (01) ==
LOC: ONCMED 11:51
PROVIDERS: Internal Medicine Medical Oncology; PCP Family Medicine; Visit Provider Internal Medicine Medical Oncology
DX: E83.110 Hereditary hemochromatosis (principal)
CPT/HCPCS: 36415; 80053; 82728; 83540; 83550; 85025

== ENCOUNTER 2024-11-04 07:15 | Oncology outpatient (recurring) (ONCR) | payer OTHER, SELFPAY ==
[2024-10-31 12:52] LABS: Basophils % 0.8 %; Eosinophils # 0.1 10^3/uL (0.0-0.8); Hematocrit 51.2 % (37-53); Lymphocytes # 1.4 10^3/uL (0.8-4.8); Lymphocytes % 28.9 %; Mean Corpuscular HGB Conc 35.2 g/dL (30-55); Mean Corpuscular Hemoglobin 31.6 pg (27-33); Mean Corpuscular Volume 89.8 fl (82-101); Mean Platelet Volume 10.5 fL (7.4-10.4); Monocytes # 0.3 10^3/uL (0.2-0.9); Monocytes % 5.5 %; Neutrophils % 61.6 %; Nucleated Red Blood Cells % 0 %; Platelet Count 209 10^3/cmm (157-399); White Blood Count 4.71 10^3/uL (3.29-11.43)
[2024-10-31 13:10] LABS: Alanine Aminotransferase 33 U/L (0-41); Albumin Level 4.5 g/dL (3.5-5.2); Alkaline Phosphatase 62 U/L (40-130); Anion Gap 16.1 (5-19); Aspartate Amino Transferase 24 U/L (0-40); Blood Urea Nitrogen 14 mg/dL (6-20); Calcium 9.2 mg/dL (8.5-10.5); Carbon Dioxide 25 mmol/L (22-29); Chloride 103 mmol/L (98-107); Ferritin 81 ng/mL (30-400); Glomerular Filtration Rate 118.9 mL/min (90-130); Glucose 120 mg/dL (65-115); Iron 118 ug/dL (59-158); Osmolality Calculated 292 mOsm/kg (285-295); Percent Saturation 38.9 % (20-50); Potassium 4.1 mmol/L (3.5-5.1); Sodium 140 mmol/L (136-145); Total Bilirubin 0.7 mg/dL (0.15-1.2); Total Iron Binding Capacity 303 mcg/dl; Total Protein 7.5 g/dL (6.6-8.7); Unsaturated Iron Binding 185 ug/dL (112-347)
[2024-10-31 14:15] VITALS: BP 112/82; PULSE 86; RESP 18; TEMP 36.6; O2SAT 98
--- NOTE | 2024-11-04 07:15 | US_ITS ---
WS: [id number] Complete ABDOMINAL ULTRASOUND HISTORY: history of cirrhosis, increased SOB COMPARISON: 05/29/2021 Liver: 14.1 cm in length. Normal size liver. Coarse echotexture. The entire liver is poorly visualized. Surface is irregular suggestive of cirrhosis. Portal Vein: Normal hepatopetal flow with monophasic waveform. Gallbladder: Prior cholecystectomy. CBD: 0.4 cm Pancreas: Obscured by bowel gas and body habitus. Right kidney: 10.2 cm x 5.5 x 5.5 cm. Cortex:1.1 cm. Normal size and echogenicity. No hydronephrosis or mass. Left kidney: 10.9 cm x 5.4 cm x 5.2 cm. Cortex: 1.1 cm. Normal size and echogenicity. No hydronephrosis or mass. Spleen: 14.0 cm. Mildly enlarged. Aorta and IVC: Unremarkable abdominal aorta and IVC. US/US abdomen complete* [id number] Impression: 1. Cirrhotic liver. The entire liver is not well visualized. 2. Prior cholecystectomy. 3. No renal obstruction. 4. No ascites.
== END 2024-11-14 23:59 | disposition home or self-care (01) ==
LOC: RAD 11-05 → ONCMED 11-07 09:39
PROVIDERS: Internal Medicine Medical Oncology; PCP Family Medicine; Visit Provider Nurse Practitioner Family
DX: K74.4 Secondary biliary cirrhosis; Z90.49 Acquired absence of other specified parts of digestive tract; R93.2 Abnormal findings on diagnostic imaging of liver and biliary tract; R16.1 Splenomegaly, not elsewhere classified; Z53.9 Procedure and treatment not carried out, unspecified reason
CPT/HCPCS: 36415; 76700; 80053; 82728; 83540; 83550; 85025; 99195; 99214

== ENCOUNTER 2024-12-12 09:35 | Oncology outpatient (recurring) (ONCR) | payer OTHER, SELFPAY ==
[2024-12-12 10:01] LABS: Hematocrit 50.4 % (37-53); Hemoglobin 17.30 g/dL (11.27-16.99); Mean Corpuscular HGB Conc 34.3 g/dL (30-55); Mean Corpuscular Hemoglobin 31.8 pg (27-33); Mean Corpuscular Volume 92.6 fl (82-101); Nucleated Red Blood Cells % 0 %; Platelet Count 154 10^3/cmm (157-399); Red Blood Count 5.44 10^6/uL (3.85-5.65); White Blood Count 3.83 10^3/uL (3.29-11.43)
[2024-12-12 10:17] LABS: Alanine Aminotransferase 29 U/L (0-41); Albumin Level 4.3 g/dL (3.5-5.2); Alkaline Phosphatase 62 U/L (40-130); Anion Gap 12.2 (5-19); Aspartate Amino Transferase 22 U/L (0-40); Blood Urea Nitrogen 16 mg/dL (6-20); Calcium 9.2 mg/dL (8.5-10.5); Carbon Dioxide 29 mmol/L (22-29); Chloride 104 mmol/L (98-107); Creatinine Clr Calc Pharmacy 109.9402; Ferritin 84 ng/mL (30-400); Globulin 2.8 g/dL (1.3-4.6); Glucose 68 mg/dL (65-115); Iron 140 ug/dL (59-158); Osmolality Calculated 291 mOsm/kg (285-295); Potassium 4.2 mmol/L (3.5-5.1); Sodium 141 mmol/L (136-145); Total Iron Binding Capacity 279 mcg/dl; Total Protein 7.1 g/dL (6.6-8.7); Unsaturated Iron Binding 139 ug/dL (112-347)
[2024-12-12 10:59] VITALS: BP 130/81; PULSE 78; TEMP 36.3; O2SAT 97
== END 2024-12-15 23:59 | disposition home or self-care (01) ==
PROVIDERS: PCP Family Medicine; Visit Provider Nurse Practitioner Family
DX: E83.110 Hereditary hemochromatosis (principal)
CPT/HCPCS: 36415; 80053; 82728; 83540; 83550; 85025; 99195; 99214

== ENCOUNTER 2025-01-26 09:23 | Oncology outpatient (recurring) (ONCR) | payer OTHER, SELFPAY ==
[2025-01-26 10:13] LABS: Hematocrit 49.1 % (37-53); Hemoglobin 17.20 g/dL (11.27-16.99); Mean Corpuscular HGB Conc 35.0 g/dL (30-55); Mean Corpuscular Hemoglobin 32.0 pg (27-33); Mean Corpuscular Volume 91.3 fl (82-101); Nucleated Red Blood Cells % 0 %; Platelet Count 173 10^3/cmm (157-399); Red Blood Count 5.38 10^6/uL (3.85-5.65); White Blood Count 4.80 10^3/uL (3.29-11.43)
[2025-01-26 10:43] LABS: Ferritin 50 ng/mL (30-400)
[2025-01-26 11:30] VITALS: BP 105/68; PULSE 65
== END 2025-02-14 23:59 | disposition home or self-care (01) ==
LOC: ONCMED 09:23
PROVIDERS: Internal Medicine Medical Oncology; PCP Family Medicine; Visit Provider Nurse Practitioner Family
DX: E83.110 Hereditary hemochromatosis (principal)
CPT/HCPCS: 36415; 82728; 85025; 99195

== ENCOUNTER 2025-02-25 18:11 | Emergency (ER) | payer OTHER, MEDICAID, SELFPAY ==
[2025-02-25 18:22] VITALS: BP 119/76; PULSE 85; RESP 18; TEMP 36.7; O2SAT 97
--- OUTSIDE RECORDS SUMMARY | 2025-02-25 18:22 | XMS_ITS | Patient Health Record ---
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
--- OUTSIDE RECORDS SUMMARY | 2025-02-25 18:22 | XMS_ITS | Clinical Summary ---
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
[2025-02-25 19:18] VITALS: BP 135/77; PULSE 87; O2SAT 98
--- NOTE | 2025-02-25 19:25 | XRR_ITS ---
PROCEDURE INFORMATION: Exam: XR Chest Exam date and time: 02/25/2025 7:40 PM Age: 54 years old Clinical indication: Chest wall pain; Additional info: Cp/sob/dizzy TECHNIQUE: Imaging protocol: Radiologic exam of the chest. Views: 1 view. COMPARISON: CT chest con [id number] 01/08/2023 8:10 AM FINDINGS: Lungs: Unremarkable. No consolidation. Pleural spaces: Unremarkable. No pleural effusion. No pneumothorax. Heart/Mediastinum: Unremarkable. No cardiomegaly. Bones/joints: Unremarkable. Single-view. XR/XR chest 1V portable [id number] IMPRESSION: No acute findings.
--- NOTE | 2025-02-25 19:26 | ECG_ITS ---
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
--- NOTE | 2025-02-25 19:26 | CTR_ITS ---
PROCEDURE INFORMATION: Exam: CT Head Without Contrast Exam date and time: 02/25/2025 7:48 PM Age: 54 years old Clinical indication: Dizziness; Additional info: Dizzy/lightheaded TECHNIQUE: Imaging protocol: Computed tomography of the head without contrast. Radiation optimization: All CT scans at this facility use at least one of these dose optimization techniques: automated exposure control; mA and/or kV adjustment per patient size (includes targeted exams where dose is matched to clinical indication); or iterative reconstruction. COMPARISON: CR XR cervical spine fl/ex [id number] 06/23/2022 11:45 AM RADIATION DOSE METRICS: Total DLP (mGy-cm): 1289.38 FINDINGS: Brain: Normal. No hemorrhage. Unremarkable white matter. No mass effect. Cerebral ventricles: No ventriculomegaly. Paranasal sinuses: Visualized sinuses are unremarkable. No fluid levels. Mastoid air cells: Visualized mastoid air cells are well aerated. Bones: Unremarkable. No acute fracture. Soft tissues: Unremarkable. CT/CT head wo con* [id number] IMPRESSION: No acute intracranial abnormality.
[2025-02-25 19:33] LABS: Hematocrit 47.4 % (37-53); Hemoglobin 16.40 g/dL (11.27-16.99); Mean Corpuscular HGB Conc 34.6 g/dL (30-55); Mean Corpuscular Hemoglobin 31.2 pg (27-33); Mean Corpuscular Volume 90.3 fl (82-101); Nucleated Red Blood Cells % 0 %; Platelet Count 194 10^3/cmm (157-399); Red Blood Count 5.25 10^6/uL (3.85-5.65); White Blood Count 6.51 10^3/uL (3.29-11.43)
[2025-02-25 19:41] VITALS: BP 121/89; BP 126/64; BP 128/76; PULSE 75; PULSE 80
--- NOTE | 2025-02-25 19:48 | W.ED.GENADLT ---
Documented by User: ASIF Vega 02/25/25 21:31 HPI - General Adult General: Chief complaint: General Medical Stated complaint: Dizzy N, Cold sweats Time Seen by Provider: 02/25/25 18:58 Source: patient Mode of arrival: ambulatory Limitations: no limitations History of Present Illness: Patient is a 54-year-old male who presents emergency department with reports of episodes of dizziness, shortness of breath, chest pain, and chills. States that he has had previous episode of this a while back, did not think much of it but today he was looking at his phone when he had the sudden onset of symptoms. As mention, this includes feeling suddenly dizzy, nauseous, chills, chest pain, shortness of breath. States that he is worried about his heart, as someone told him they had similar issues and was told that it was caused by heart issues. He notes a history of hemochromatosis and liver cirrhosis, of which she has required regular phlebotomy but states he has not attended this appointment in a while. Notes otherwise he does not have any cardiac history, he is asymptomatic at this time as he states that the symptoms lasted about an hour and a half and resolved spontaneously. He does note that occasionally he gets dizzy with standing, has been told that this is his blood pressure. No other pertinent history noted, vitals are stable at this time. States that he has been set up for cardiology appointments but has not attended them. MD complaint: Chest pain, shortness of breath, dizzy, nausea, chills Onset (ago): hour(s) Severity: similar to prior episodes Pain Consistency: now resolved Associated symptoms: Reports chest pain, dyspnea and nausea; Deny headache(s), rash, palpitations or vomiting Related Data Previous Rx's ?Medication ?Instructions ?Recorded hydroxychloroquine 200 mg tablet See Rx Instructions .Route 11/14/24 .COMPLEX #60 tabs spironolactone 50 mg tablet See Rx Instructions .Route 11/14/24 .COMPLEX #90 tabs oxycodone 10 mg tablet 10 mg PO Q6H 30 days #120 tabs 02/22/25 Allergies Allergy/AdvReac Type Severity Reaction Status Date / Time No Known Allergies Allergy Verified 01/23/25 08:40 Review of Systems General: Reports: 10 or more systems reviewed and unremarkable except in HPI and below Const: Reports: chills; Denies: fever(s) or fatigue Eyes: Denies: change in vision ENMT: Denies: throat pain, ear or mastoid pain or nasal discharge Card: Reports: chest pain and lightheadedness; Denies: palpitations or swelling of feet/ankles Resp: Reports: dyspnea; Denies: productive cough or wheezing GI: Reports: nausea; Denies: abdominal pain, vomiting, diarrhea or constipation : Denies: flank pain, difficulty urinating, dysuria or urinary frequency Musc: Denies: neck pain, back pain or joint pain Skin/Breast: Denies: rash Neuro: Reports: dizziness; Denies: headache(s), numbness in extremities or weakness in extremities PFSH ED PFSH: Medical History Depression Chronic back pain Liver cirrhosis Fibromyalgia Hereditary hemochromatosis Surgical History History of liver biopsy (08/02/10) Status post laparoscopic cholecystectomy (05/01/21) with wedge liver biopsy Status post colonoscopy H/O esophagogastroduodenoscopy Family History Father Diabetes Hypertension Mother Stroke Other Cancer Denies family history of CAD (coronary artery disease) Clotting disorder Dementia Hyperlipidemia Psychiatric illness Chronic kidney disease (CKD) Suicide Anesthesia complication Bleeding disorder Lung disease Social History Smoking and tobacco/nicotine status: never used tobacco/nicotine Alcohol intake: former Physical Exam Const: COMMON NORMALS: no acute distress, patient oriented x3 and no limitations GENERAL APPEARANCE: cooperative, comfortable and well developed ORIENTATION/CONSCIOUSNESS: Yes awake, Yes oriented to person, Yes oriented to place and Yes oriented to time HENMT: COMMON NORMALS: normocephalic, atraumatic and hearing grossly normal bilaterally HEAD & SCALP: normocephalic and atraumatic Eye: COMMON NORMALS: Equal, round and reactive pupils present, EOMs intact bilaterally and conjunctivae normal CONJUNCTIVA: Yes conjunctivae normal PUPIL: Yes Equal, round and reactive pupils present Neck/C-Spine: COMMON NORMALS: full ROM, supple and no JVD Resp: COMMON NORMALS: normal respiratory effort, No retractions, No use of accessory muscles and clear to auscultation bilaterally AUSCULTATION: clear to auscultation bilaterally Cardio: COMMON NORMALS: no JVD, regular rate, regular rhythm, No clicks present (Cardio), No murmurs present (Cardio) and No rub (Cardio) RATE: regular rate RHYTHM: regular rhythm GI: COMMON NORMALS: Normal to inspection, nondistended, normoactive bowel sounds present, Soft to palpation and non-tender AUSCULTATION: Yes normoactive bowel sounds PALPATION: Yes Soft to palpation RECTAL EXAM: Yes deferred Extremity: COMMON NORMALS: normal to inspection, full ROM and capillary refill normal Neuro: COMMON NORMALS: patient oriented x3, CN's II-XII intact bilaterally, moves all extremities, no focal motor deficits and no sensory deficits noted SENSORIUM/ORIENTATION: Yes oriented to person, Yes oriented to place and Yes oriented to time Skin: COMMON NORMALS: no rashes or lesions noted GENERAL SKIN EXAM: no rashes or lesions noted Course Vital Signs: Vital signs: Vital Signs Temperature 98.0 F 02/25/25 18:22 Pulse Rate 64 02/25/25 21:33 Respiratory Rate 16 02/25/25 21:33 Blood Pressure 117/99 02/25/25 21:33 Pulse Oximetry 95 02/25/25 21:33 Oxygen Delivery Me thod Room Air 02/25/25 18:22 [facility] - General Adult Medical Decision Making Patient presenting with multiple symptoms, episodic chills nausea shortness of breath lightheadedness and dizziness. He had noted this happen once in the past, today's episode lasted much longer. Reports history of hemochromatosis and liver cirrhosis. He is asymptomatic at time of exam, vitals have been stable throughout ED course. Orthostatic vitals were negative. Chest x-ray negative. EKG negative. Lab work is all unremarkable which includes negative troponin and negative thyroid. Head CT negative. I have no emergency related explanation for his onset of symptoms, he is encouraged to follow-up with primary care return with any new or worsening. Lab Data 02/25/25 18:49 02/25/25 18:49 Radiology Impressions Chest X-Ray 02/25/25 19:25 IMPRESSION: No acute findings. Head CT 02/25/25 19:26 IMPRESSION: No acute intracranial abnormality. Laboratory Results WBC 6.51 10^3/uL (3.29-11.43) 02/25/25 18:49 RBC 5.25 10^6/uL (3.85-5.65) 02/25/25 18:49 Hgb 16.40 g/dL (11.27-16.99) 02/25/25 18:49 Hct 47.4 % (37-53) 02/25/25 18:49 MCV 90.3 fl (82-101) 02/25/25 18:49 MCH 31.2 pg (27-33) 02/25/25 18:49 MCHC 34.6 g/dL (30-55) 02/25/25 18:49 RDW 12.1 % (12.1-15.1) 02/25/25 18:49 Plt Count 194 10^3/cmm (157-399) 02/25/25 18:49 MPV 10.9 fL (7.4-10.4) H 02/25/25 18:49 Neut % (Auto) 79.0 % 02/25/25 18:49 Lymph % (Auto) 15.5 % 02/25/25 18:49 Elmore % (Auto) 4.5 % 02/25/25 18:49 Eos % (Auto) 0.5 % 02/25/25 18:49 Baso % (Auto) 0.5 % 02/25/25 18:49 Neut # (Auto) 5.15 10^3/uL (1.8-7.7) 02/25/25 18:49 Lymph # (Auto) 1.0 10^3/uL (0.8-4.8) 02/25/25 18:49 Elmore # (Auto) 0.3 10^3/uL (0.2-0.9) 02/25/25 18:49 Eos # (Auto) 0.0 10^3/uL (0.0-0.8) 02/25/25 18:49 Baso # (Auto) 0.0 10^3/uL (0.0-0.1) 02/25/25 18:49 Nucleated RBC % (auto) 0 % 02/25/25 18:49 Nucleated RBCs # 0.0 /100WBC 02/25/25 18:49 Sodium 142 mmol/L (136-145) 02/25/25 18:49 Potassium 4.0 mmol/L (3.5-5.1) 02/25/25 18:49 Chloride 105 mmol/L (98-107) 02/25/25 18:49 Carbon Dioxide 27 mmol/L (22-29) 02/25/25 18:49 Anion Gap 14.0 (5-19) 02/25/25 18:49 BUN 17 mg/dL (6-20) 02/25/25 18:49 Creatinine 1.0 mg/dL (0.7-1.2) 02/25/25 18:49 GFR Calculation 78.5 mL/min (90-130) L 02/25/25 18:49 Glucose 142 mg/dL (65-115) H 02/25/25 18:49 Calculated Osmolality 298 mOsm/kg (285-295) H 02/25/25 18:49 Calcium 9.6 mg/dL (8.5-10.5) 02/25/25 18:49 Total Bilirubin 0.7 mg/dL (0.15-1.2) 02/25/25 18:49 AST 27 U/L (0-40) 02/25/25 18:49 ALT 34 U/L (0-41) 02/25/25 18:49 Alkaline Phosphatase 70 U/L (40-130) 02/25/25 18:49 Troponin T Baseline < 6 ng/L (0-15) 02/25/25 18:49 Troponin T 120 Minute 6.11 ng/L (0-15) 02/25/25 20:40 Delta Troponin T 0.15653 ABS# (0-10) 02/25/25 20:40 Total Protein 7.5 g/dL (6.6-8.7) 02/25/25 18:49 Albumin 4.5 g/dL (3.5-5.2) 02/25/25 18:49 Globulin 3.0 g/dL (1.3-4.6) 02/25/25 18:49 TSH 0.86 uIU/mL (0.27-4.20) 02/25/25 18:49 Influenza A (PCR) Negative (Negative) 02/25/25 19:29 Influenza Type B (PCR) Negative (Negative) 02/25/25 19: RSV (PCR) Negative (Negative) 02/25/25 19:29 SARS-CoV-2 (PCR) Negative (Negative) 02/25/25 19:29 All radiology interpretation(s) finalized by discharge Discharge Plan Discharge Patient Disposition: Home Clinical Impression: Dizziness Condition: Stable Prescriptions: No Action hydroxychloroquine 200 mg tablet See Rx Instructions .ROUTE .COMPLEX Qty: 60 5RF Dose Instruction: TAKE ONE TABLET BY MOUTH TWICE DAILY Rx Instructions: TAKE ONE TABLET BY MOUTH TWICE DAILY spironolactone 50 mg tablet See Rx Instructions .ROUTE .COMPLEX Qty: 90 1RF Dose Instruction: TAKE ONE TABLET BY MOUTH ONCE DAILY Rx Instructions: TAKE ONE TABLET BY MOUTH ONCE DAILY oxycodone 10 mg tablet 10 mg PO Q6H 30 Days Qty: 120 0RF Discharge Orders: Discharge ED (Routine); Ordered 02/25/25 Ordered By: Cong Soliz Referrals: Carlton Salas DO [Primary Care Provider, [facility]] Patient Instructions: Patient Portal & Leif Instructions Activity Restrictions/Additional Instructions: Please follow-up with your primary care provider for further outpatient management. Your workup today was unremarkable for any acute findings. Please return with any new or worsening symptoms. Print Language: Japanese Coding Level of Care Code ED French Folding Machine Operator for Chg Fwd Documented by User: William Arana DO 02/26/25 01:20 HPI - General Adult General: Chief complaint: General Medical Stated complaint: Dizzy N, Cold sweats Time Seen by Provider: 02/25/25 18:58 Related Data Previous Rx's ?Medication ?Instructions ?Recorded hydroxychloroquine 200 mg tablet See Rx Instructions .Route 11/14/24 .COMPLEX #60 tabs spironolactone 50 mg tablet See Rx Instructions .Route 11/14/24 .COMPLEX #90 tabs oxycodone 10 mg tablet 10 mg PO Q6H 30 days #120 tabs 02/22/25 Allergies Allergy/AdvReac Type Severity Reaction Status Date / Time No Known Allergies Allergy Verified 01/23/25 08:40 PFSH ED PFSH: Medical History Depression Chronic back pain Liver cirrhosis Fibromyalgia Hereditary hemochromatosis Surgical History History of liver biopsy (08/02/10) Status post laparoscopic cholecystectomy (05/01/21) with wedge liver biopsy Status post colonoscopy H/O esophagogastroduodenoscopy Family History Father Diabetes Hypertension Mother Stroke Other Cancer Denies family history of CAD (coronary artery disease) Clotting disorder Dementia Hyperlipidemia Psychiatric illness Chronic kidney disease (CKD) Suicide Anesthesia complication Bleeding disorder Lung disease Social History Smoking and tobacco/nicotine status: never used tobacco/nicotine Alcohol intake: former Course Vital Signs: Vital signs: Vital Signs Temperature 98.0 F 02/25/25 18:22 Pulse Rate 64 02/25/25 21:33 Respiratory Rate 16 02/25/25 21:33 Blood Pressure 117/99 02/25/25 21:33 Pulse Oximetry 95 02/25/25 21:33 Oxygen Delivery Me thod Room Air 02/25/25 18:22 [facility] - General Adult Medical Decision Making Patient presenting with multiple symptoms, episodic chills nausea shortness of breath lightheadedness and dizziness. He had noted this happen once in the past, today's episode lasted much longer. Reports history of hemochromatosis and liver cirrhosis. He is asymptomatic at time of exam, vitals have been stable throughout ED course. Orthostatic vitals were negative. Chest x-ray negative. EKG negative. Lab work is all unremarkable which includes negative troponin and negative thyroid. Head CT negative. I have no emergency related explanation for his onset of symptoms, he is encouraged to follow-up with primary care return with any new or worsening. This patient was originally seen by Mr. Heydi PA-C. I agree with his history, evaluation, and management. Lab Data 02/25/25 18:49 02/25/25 18:49 Radiology Impressions Chest X-Ray 02/25/25 19:25 IMPRESSION: No acute findings. Head CT 02/25/25 19:26 IMPRESSION: No acute intracranial abnormality. Laboratory Results WBC 6.51 10^3/uL (3.29-11.43) 02/25/25 18:49 RBC 5.25 10^6/uL (3.85-5.65) 02/25/25 18:49 Hgb 16.40 g/dL (11.27-16.99) 02/25/25 18:49 Hct 47.4 % (37-53) 02/25/25 18:49 MCV 90.3 fl (82-101) 02/25/25 18:49 MCH 31.2 pg (27-33) 02/25/25 18:49 MCHC 34.6 g/dL (30-55) 02/25/25 18:49 RDW 12.1 % (12.1-15.1) 02/25/25 18:49 Plt Count 194 10^3/cmm (157-399) 02/25/25 18:49 MPV 10.9 fL (7.4-10.4) H 02/25/25 18:49 Neut % (Auto) 79.0 % 02/25/25 18:49 Lymph % (Auto) 15.5 % 02/25/25 18:49 Elmore % (Auto) 4.5 % 02/25/25 18:49 Eos % (Auto) 0.5 % 02/25/25 18:49 Baso % (Auto) 0.5 % 02/25/25 18:49 Neut # (Auto) 5.15 10^3/uL (1.8-7.7) 02/25/25 18:49 Lymph # (Auto) 1.0 10^3/uL (0.8-4.8) 02/25/25 18:49 Elmore # (Auto) 0.3 10^3/uL (0.2-0.9) 02/25/25 18:49 Eos # (Auto) 0.0 10^3/uL (0.0-0.8) 02/25/25 18:49 Baso # (Auto) 0.0 10^3/uL (0.0-0.1) 02/25/25 18:49 Nucleated RBC % (auto) 0 % 02/25/25 18:49 Nucleated RBCs # 0.0 /100WBC 02/25/25 18:49 Sodium 142 mmol/L (136-145) 02/25/25 18:49 Potassium 4.0 mmol/L (3.5-5.1) 02/25/25 18:49 Chloride 105 mmol/L (98-107) 02/25/25 18:49 Carbon Dioxide 27 mmol/L (22-29) 02/25/25 18:49 Anion Gap 14.0 (5-19) 02/25/25 18:49 BUN 17 mg/dL (6-20) 02/25/25 18:49 Creatinine 1.0 mg/dL (0.7-1.2) 02/25/25 18:49 GFR Calculation 78.5 mL/min (90-130) L 02/25/25 18:49 Glucose 142 mg/dL (65-115) H 02/25/25 18:49 Calculated Osmolality 298 mOsm/kg (285-295) H 02/25/25 18:49 Calcium 9.6 mg/dL (8.5-10.5) 02/25/25 18:49 Total Bilirubin 0.7 mg/dL (0.15-1.2) 02/25/25 18:49 AST 27 U/L (0-40) 02/25/25 18:49 ALT 34 U/L (0-41) 02/25/25 18:49 Alkaline Phosphatase 70 U/L (40-130) 02/25/25 18:49 Troponin T Baseline < 6 ng/L (0-15) 02/25/25 18:49 Troponin T 120 Minute 6.11 ng/L (0-15) 02/25/25 20:40 Delta Troponin T 0.17100 ABS# (0-10) 02/25/25 20:40 Total Protein 7.5 g/dL (6.6-8.7) 02/25/25 18:49 Albumin 4.5 g/dL (3.5-5.2) 02/25/25 18:49 Globulin 3.0 g/dL (1.3-4.6) 02/25/25 18:49 TSH 0.86 uIU/mL (0.27-4.20) 02/25/25 18:49 Influenza A (PCR) Negative (Negative) 02/25/25 19:29 Influenza Type B (PCR) Negative (Negative) 02/25/25 19:29 RSV (PCR) Negative (Negative) 02/25/25 19:29 SARS-CoV-2 (PCR) Negative (Negative) 02/25/25 19:29 Discharge Plan Discharge Patient Disposition: Home Clinical Impression: Dizziness Condition: Stable Prescriptions: No Action hydroxychloroquine 200 mg tablet See Rx Instructions .ROUTE .COMPLEX Qty: 60 5RF Dose Instruction: TAKE ONE TABLET BY MOUTH TWICE DAILY Rx Instructions: TAKE ONE TABLET BY MOUTH TWICE DAILY spironolactone 50 mg tablet See Rx Instructions .ROUTE .COMPLEX Qty: 90 1RF Dose Instruction: TAKE ONE TABLET BY MOUTH ONCE DAILY Rx Instructions: TAKE ONE TABLET BY MOUTH ONCE DAILY oxycodone 10 mg tablet 10 mg PO Q6H 30 Days Qty: 120 0RF Discharge Orders: Discharge ED (Routine); Ordered 02/25/25 Ordered By: Cong Soliz Referrals: Carlton Salas DO [Primary Care Provider, [facility]] Patient Instructions: Patient Portal & Leif Instructions Activity Restrictions/Additional Instructions: Please follow-up with your primary care provider for further outpatient management. Your workup today was unremarkable for any acute findings. Please return with any new or worsening symptoms. Print Language: Japanese Coding Level of Care Code ED French Folding Machine Operator for Hardy Hernandez
[2025-02-25 20:00] LABS: Troponin(5th) Baseline < 6 ng/L (0-15)
[2025-02-25 20:07] LABS: Alanine Aminotransferase 34 U/L (0-41); Albumin Level 4.5 g/dL (3.5-5.2); Alkaline Phosphatase 70 U/L (40-130); Anion Gap 14.0 (5-19); Aspartate Amino Transferase 27 U/L (0-40); Blood Urea Nitrogen 17 mg/dL (6-20); Calcium 9.6 mg/dL (8.5-10.5); Carbon Dioxide 27 mmol/L (22-29); Chloride 105 mmol/L (98-107); Creatinine Clr Calc Pharmacy 98.9462; Globulin 3.0 g/dL (1.3-4.6); Glucose 142 mg/dL (65-115); Osmolality Calculated 298 mOsm/kg (285-295); Potassium 4.0 mmol/L (3.5-5.1); Sodium 142 mmol/L (136-145); Thyroid Stimulating Hormone 0.86 uIU/mL (0.27-4.20); Total Protein 7.5 g/dL (6.6-8.7)
[2025-02-25 20:12] LABS: Respiratory Syncytial Virus Ce NEGATIVE (Negative); SARS-CoV-2 PCR NEGATIVE (Negative)
[2025-02-25 21:03] VITALS: BP 137/77; PULSE 62; O2SAT 97
--- NOTE | 2025-02-25 21:26 | ECG_ITS ---
[facility]25[facility]25 Pat Name: Henry Blanc Department: Room: Gender: Male Shirt Turner: : 1970 Requested By: Cong Hardy Order Number: [id number] Reading MD: ALEJANDRA SMITH Measurements Intervals [place] Rate: 66 P: 62 ND: 157 QRS: 27 QRSD: 106 T: 32 QT: 395 QTc: 414 Interpretive Statements SINUS RHYTHM Compared to ECG 02/25/2025 19:31:46 No significant changes Electronically Signed On 02-26-2025 23:27:15 CDT by ALEJANDRA SMITH [email or web address]
[2025-02-25 21:33] VITALS: BP 117/99; PULSE 64; RESP 16; O2SAT 95
[2025-02-25 21:33] LABS: Troponin 5 2HR 6.11 ng/L (0-15); Troponin 5 2HR Delta 0.11001 ABS# (0-10)
== END 2025-02-25 21:33 | disposition home or self-care (01) ==
PROVIDERS: Emergency Provider Physician Assistant; PCP Family Medicine
DX: R42 Dizziness and giddiness (principal); Z11.52 Encounter for screening for COVID-19
CPT/HCPCS: 36415; 70450; 71045; 80053; 84443; 84484; 85025; 87637; 93005; 96360; 96361; 99285; J7030

== ENCOUNTER 2025-03-30 09:45 | Oncology outpatient (recurring) (ONCR) | payer OTHER, MEDICAID, SELFPAY ==
[2025-03-30 10:30] LABS: Hematocrit 48.1 % (37-53); Hemoglobin 16.70 g/dL (11.27-16.99); Mean Corpuscular HGB Conc 34.7 g/dL (30-55); Mean Corpuscular Hemoglobin 31.2 pg (27-33); Mean Corpuscular Volume 89.7 fl (82-101); Nucleated Red Blood Cells % 0 %; Platelet Count 181 10^3/cmm (157-399); Red Blood Count 5.36 10^6/uL (3.85-5.65); White Blood Count 4.81 10^3/uL (3.29-11.43)
[2025-03-30 11:28] LABS: Ferritin 52 ng/mL (30-400)
[2025-03-30 12:19] VITALS: BP 121/75; PULSE 69; RESP 18; TEMP 36.2; O2SAT 97
== END 2025-04-16 23:59 | disposition home or self-care (01) ==
LOC: ONCMED 09:45
PROVIDERS: Internal Medicine Medical Oncology; PCP Family Medicine; Visit Provider Nurse Practitioner Family
DX: E83.110 Hereditary hemochromatosis (principal)
CPT/HCPCS: 36415; 82728; 85025; 99195